=== PATIENT | female | born 1940 | race Caucasian/White ===

== ENCOUNTER 2017-04-19 08:36 | Emergency (ER) | payer MEDICARE, BC ==
[2017-04-19 08:52] VITALS: BP 158/64
--- NOTE | 2017-04-19 08:57 | EDM.PDOC ---
ED HPI GENERAL MEDICAL PROBLEM - General Chief Complaint: ENT Problem Stated Complaint: IN BY AMBULANCE Time Seen by Provider: 04/19/17 08:54 Source of Information: Reports: Patient History Limitations: Reports: No Limitations - History of Present Illness INITIAL COMMENTS - FREE TEXT/NARRATIVE: Pt states that she blew her nose this am and it started bleeding and she was unable to control it. Denies n/v or dizziness currently. 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: Dressing(s) (Nasal tampon placed by EMS) - Related Data Allergies Allergy/AdvReac Type Severity Reaction Status Date / Time cefdinir [From Omnicef] Allergy Cannot Verified 04/19/17 08:42 Remember escitalopram oxalate Allergy Cannot Verified 04/19/17 08:42 [From Lexapro] Remember hydrochlorothiazide Allergy Cannot Verified 04/19/17 08:42 Remember lisinopril Allergy Cannot Verified 04/19/17 08:42 Remember oxymetazoline HCl Allergy Cannot Verified 04/19/17 08:42 [From Afrin (oxymetazoline)] Remember paroxetine Allergy Cannot Verified 04/19/17 08:42 Remember sertraline Allergy Cannot Verified 04/19/17 08:42 Remember venlafaxine Allergy Cannot Verified 04/19/17 08:42 Remember Home Meds: Home Meds Acetaminophen [Tylenol Extra Strength] 2 tab PO Q6H PRN 10/22/14 [History] Albuterol [Proair HFA] 2 puff INH DAILY PRN 10/22/14 [History] Budesonide [Pulmicort] 2 ml INH BID PRN 10/22/14 [History] Fluticasone Propionate [Flonase] 1 spray NASBOTH DAILY 10/22/14 [History] Furosemide [Lasix] 1 tab PO DAILY 10/22/14 [History] Ipratropium/Albuterol Sulfate [Iprat-Albut 0.5-3(2.5) MG/3 ML] 1 ampule INH Q8HR PRN 10/22/14 [History] Loratadine 1 tab PO DAILY 10/22/14 [History] Losartan [Cozaar] 1 tab PO DAILY 10/22/14 [History] Metoprolol Succinate [Toprol Xl] 1 tab PO DAILY 10/22/14 [History] Multivitamin [Multi-Vitamin Daily] 1 tab PO DAILY 10/22/14 [History] Omeprazole [Prilosec] 1 tab PO DAILY 10/22/14 [History] Salmeterol Xinafoate [Serevent Diskus] 1 disk INH DAILY PRN 10/22/14 [History] Tylenol Pm 1 tab PO BEDTIME PRN 10/22/14 [History] amLODIPine Besylate [Amlodipine Besylate] 10 tab PO DAILY 10/22/14 [History] traZODone 1 tab PO BEDTIME 10/22/14 [History] atorvaSTATin [Lipitor] 10 mg PO DAILY 12/08/15 [History] metFORMIN [Glucophage XR] 500 mg PO ACBREAKFAST 12/08/15 [History] Calcium Carbonate/Vitamin D3 [Calcium 600 + Vit D Tablet] 1 mg PO DAILY [History] LORazepam 1 mg PO BEDTIME PRN 12/09/15 [History] Levothyroxine [Synthroid] 50 mcg PO DAILY 12/09/15 [History] traMADol [Ultram] 50 mg PO Q8HR PRN 12/09/15 [History] Prednisone [IJD: predniSONE] 40 mg PO WITHBREAKFAST #3 tablet 07/15/16 [Rx] Prednisone [IMW: predniSONE] 20 mg PO WITHBREAKFAST #3 tab 07/15/16 [Rx] predniSONE [Prednisone] 10 mg PO WITHBREAKFAST #3 tab.ds.pk 07/15/16 [Rx] Past Medical History HEENT History: Reports: Allergic Rhinitis, Impaired Vision, Other (See Below) Other HEENT History: GLasses Cardiovascular History: Reports: High Cholesterol, Hypertension Respiratory History: Reports: Asthma, COPD Gastrointestinal History: Reports: GERD Genitourinary History: Reports: Other (See Below) Other Genitourinary History: Stress incontinence 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 Musculoskeletal History: Reports: Osteoarthritis Neurological History: Reports: None Psychiatric History: Reports: Anxiety Endocrine/Metabolic History: Reports: Diabetes, Type II, Hypothyroidism Hematologic History: Reports: None Immunologic History: Reports: None Oncologic (Cancer) History: Reports: None Dermatologic History: Reports: None - Infectious Disease History Infectious Disease History: Reports: None - Past Surgical History Head Surgeries/Procedures: Reports: None Female Surgical History: Reports: Hysterectomy Social & Family History - Family History Family Medical History: Noncontributory - Tobacco Use Smoking Status *Q: Former Smoker Years of Tobacco use: 20 Used Tobacco, but Quit: Yes Month Tobacco Last Used: unknown Second Hand Smoke Exposure: No - Caffeine Use Caffeine Use: Reports: Coffee - Alcohol Use Days Per Week of Alcohol Use: 0 - Recreational Drug Use Recreational Drug Use: No - Living Situation & Occupation Living situation: Reports: , with Family Occupation: Retired ED ROS ENT - Review of Systems Review Of Systems: ROS reveals no pertinent complaints other than HPI. ED EXAM, ENT - Physical Exam Exam: See Below Exam Limited By: No Limitations General Appearance: Alert, WD/WN, No Apparent Distress Nose: Nasal Swelling, Injected Turbinates, Other (nasal tampon in right nare, no bleeding noted in left nare currently) Respiratory/Chest: No Respiratory Distress, Lungs Clear, No Accessory Muscle Use , Chest Non-Tender, Rales (mild KHADRA) Cardiovascular: Normal Peripheral Pulses, Regular Rate, Rhythm, No Edema, No Gallop, No JVD, No Murmur, No Rub Course - Vital Signs Last Recorded V/S: Last Vital Signs Temp 97.2 F 04/19/17 08:47 Pulse 87 04/19/17 08:47 Resp 18 04/19/17 08:47 BP 158/64 H 04/19/17 08:47 Pulse Ox 94 L 04/19/17 08:47 - Orders/Labs/Meds Labs: Laboratory Tests 04/19/17 04/19/17 Range/Units 09:02 09:02 WBC 12.8 H (5.0-10.0) 10^3/uL RBC 4.21 (4.2-5.4) 10^6/uL Hgb 12.7 (12.0-16.0) g/dL Hct 39.8 (37.0-47.0) % MCV 94.5 (80-100) fL MCH 30.2 (27.0-34.0) pg MCHC 31.9 L (33.0-35.0) g/dL Plt Count 303 (150-450) 10^3/uL Neut % (Auto) 72.5 (42.2-75.2) % Lymph % (Auto) 10.1 L (20.5-50.1) % [place] % (Auto) 8.0 (2-8) % Eos % (Auto) 8.9 H (1.0-3.0) % Baso % (Auto) 0.5 (0.0-1.0) % Sodium 141 (135-145) mmol/L Potassium 3.8 (3.6-5.0) mmol/L Chloride 100 L (101-111) mmol/L Carbon Dioxide 28.0 (21.0-31.0) mmol/L Anion Gap 16.8 BUN 13 (7-18) mg/dL Creatinine 0.8 (0.6-1.3) mg/dL Est Cr Clr Drug Dosing 41.63 mL/min Estimated GFR (MDRD) > 60 Glucose 135 H (74-105) mg/dL Calcium 9.4 (8.4-10.2) mg/dl - Re-Assessments/Exams Free Text/Narrative Re-Assessment/Exam: 04/19/17 09:37 Bleeding controlled with nasal packing. Labs with no signs of anemia. Will dc home with instructions to return in 48 hours for packing removal. Departure - Departure Time of Disposition: 09:38 Disposition: Home, Self-Care 01 Condition: Good Clinical Impression: Epistaxis - Discharge Information Instructions: Nosebleed Forms: ED Department Discharge Additional Instructions: Keep the nasal packing in for the next two days and return either to ER or clinic for removal. Try not to blow your nose. You may use ointment or gels to moisturize the inside of your nose using a q-tip lightly. if you start to have bleeding again, pinch your nose for 10-15 mins. Humidifiers may help to decrease the dryness in the air that could potentially be causing the nose bleeds. Return for any worsening symptoms.
[2017-04-19 09:29] LABS: CHLORIDE,CL 100 mmol/L (101-111); SODIUM,NA 141 mmol/L (135-145)
== END 2017-04-19 09:56 | disposition home or self-care (01) ==
LOC: DL.ED 08:36
DX: R04.0 Epistaxis (principal); H54.7 Unspecified visual loss; E78.00 Pure hypercholesterolemia, unspecified; I10 Essential (primary) hypertension; J44.9 Chronic obstructive pulmonary disease, unspecified; J45.909 Unspecified asthma, uncomplicated; K21.9 Gastro-esophageal reflux disease without esophagitis; M19.90 Unspecified osteoarthritis, unspecified site; Z90.710 Acquired absence of both cervix and uterus; E11.9 Type 2 diabetes mellitus without complications; E03.9 Hypothyroidism, unspecified; Z87.891 Personal history of nicotine dependence; Z88.8 Allergy status to other drugs, medicaments and biological substances; Z79.899 Other long term (current) drug therapy
CPT/HCPCS: 36415; 80048; 85025; 99282; 99284

== ENCOUNTER 2018-03-07 11:05 | Emergency (ER) | payer MEDICARE, BC ==
--- NOTE | 2018-03-07 11:41 | EDM.PDOC ---
ED HPI GENERAL MEDICAL PROBLEM - General Stated Complaint: AMBULANCE / NOSE BLEED Time Seen by Provider: 03/07/18 11:25 Source of Information: Reports: Patient, EMS, EMS Notes Reviewed, RN, RN Notes Reviewed History Limitations: Reports: No Limitations - History of Present Illness INITIAL COMMENTS - FREE TEXT/NARRATIVE: Pt presents to the ER per [facility] with c/o nosebleed. Patient states the nosebleed began about 0900. She states it slowed down and then she tried to eat something. It was at that time that it began to bleed more. EMS placed a nasal tampon en route. The bleeding seems to have been controlled with the nasal tampon. Patient denies taking anticoagulants, or any trauma. Patient denies chest pains, fever, N/V/D. She states she does have COPD and admits to SOB at times, and states she has recently had chills at times. She states she has had trouble beginning to void, and some frequency, urgency. Denies burning with urination. Onset: Today, Sudden - Related Data Allergies Allergy/AdvReac Type Severity Reaction Status Date / Time cefdinir [From Omnicef] Allergy Cannot Verified 04/19/17 08:42 Remember escitalopram oxalate Allergy Cannot Verified 04/19/17 08:42 [From Lexapro] Remember hydrochlorothiazide Allergy Cannot Verified 04/19/17 08:42 Remember lisinopril Allergy Cannot Verified 04/19/17 08:42 Remember oxymetazoline HCl Allergy Cannot Verified 04/19/17 08:42 [From Afrin (oxymetazoline)] Remember paroxetine Allergy Cannot Verified 04/19/17 08:42 Remember sertraline Allergy Cannot Verified 04/19/17 08:42 Remember venlafaxine Allergy Cannot Verified 04/19/17 08:42 Remember Home Meds: Home Meds Acetaminophen [Tylenol Extra Strength] 2 tab PO Q6H PRN 10/22/14 [History] Albuterol [Proair HFA] 2 puff INH DAILY PRN 10/22/14 [History] Budesonide [Pulmicort] 2 ml INH BID PRN 10/22/14 [History] Fluticasone Propionate [Flonase] 1 spray NASBOTH DAILY 10/22/14 [History] Furosemide [Lasix] 1 tab PO DAILY 10/22/14 [History] Ipratropium/Albuterol Sulfate [Iprat-Albut 0.5-3(2.5) MG/3 ML] 1 ampule INH Q8HR PRN 10/22/14 [History] Loratadine 1 tab PO DAILY 10/22/14 [History] Losartan [Cozaar] 1 tab PO DAILY 10/22/14 [History] Metoprolol Succinate [Toprol Xl] 1 tab PO DAILY 10/22/14 [History] Multivitamin [Multi-Vitamin Daily] 1 tab PO DAILY 10/22/14 [History] Omeprazole [Prilosec] 1 tab PO DAILY 10/22/14 [History] Salmeterol Xinafoate [Serevent Diskus] 1 disk INH DAILY PRN 10/22/14 [History] amLODIPine Besylate [Amlodipine Besylate] 10 tab PO DAILY 10/22/14 [History] traZODone 1 tab PO BEDTIME 10/22/14 [History] atorvaSTATin [Lipitor] 10 mg PO DAILY 12/08/15 [History] metFORMIN [Glucophage XR] 500 mg PO ACBREAKFAST 12/08/15 [History] Calcium Carbonate/Vitamin D3 [Calcium 600 + Vit D Tablet] 1 mg PO DAILY [History] LORazepam 1 mg PO BEDTIME PRN 12/09/15 [History] Levothyroxine [Synthroid] 50 mcg PO DAILY 12/09/15 [History] traMADol [Ultram] 50 mg PO Q8HR PRN 12/09/15 [History] predniSONE [Prednisone] 10 mg PO WITHBREAKFAST #3 tab.ds.pk 07/15/16 [Rx] Past Medical History HEENT History: Reports: Allergic Rhinitis, Impaired Vision, Other (See Below) Other HEENT History: GLasses Cardiovascular History: Reports: High Cholesterol, Hypertension Respiratory History: Reports: Asthma, COPD Gastrointestinal History: Reports: GERD Genitourinary History: Reports: Other (See Below) Other Genitourinary History: Stress incontinence 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 Musculoskeletal History: Reports: Osteoarthritis Neurological History: Reports: None Psychiatric History: Reports: Anxiety Endocrine/Metabolic History: Reports: Diabetes, Type II, Hypothyroidism Hematologic History: Reports: None Immunologic History: Reports: None Oncologic (Cancer) History: Reports: None Dermatologic History: Reports: None - Infectious Disease History Infectious Disease History: Reports: None - Past Surgical History Head Surgeries/Procedures: Reports: None Female Surgical History: Reports: Hysterectomy Social & Family History - Family History Family Medical History: Noncontributory - Caffeine Use Caffeine Use: Reports: Coffee - Living Situation & Occupation Living situation: Reports: , with Family Occupation: Retired ED ROS ENT - Review of Systems Review Of Systems: ROS reveals no pertinent complaints other than HPI. ED EXAM, ENT - Physical Exam Exam: See Below Exam Limited By: No Limitations General Appearance: Alert, WD/WN, No Apparent Distress Eye Exam: Bilateral Eye: EOMI, Normal Inspection Ears: Normal External Exam, Hearing Grossly Normal Nose: Dried Blood, Other (nasal tampon inserted to the right nare by EMS.) Mouth/Throat: Normal Inspection, Normal Lips, Normal Oropharynx Head: Atraumatic, Normocephalic Neck: Normal Inspection, Supple, Non-Tender, Full Range of Motion Respiratory/Chest: No Respiratory Distress, No Accessory Muscle Use, Chest Non- Tender, Decreased Breath Sounds Cardiovascular: Normal Peripheral Pulses, Regular Rate, Rhythm, No Edema, No Gallop, No JVD, No Murmur, No Rub GI/Abdominal: Normal Bowel Sounds, Soft, Non-Tender (Female) Exam: Deferred Rectal (Female) Exam: Deferred Back: Normal Inspection, Full Range of Motion Extremities: Normal Inspection, Normal Range of Motion, Non-Tender, No Pedal Edema, Normal Capillary Refill Neurological: Alert, Oriented, CN II-XII Intact, Normal Cognition, Normal Gait, Normal Reflexes, No Motor/Sensory Deficits Psychiatric: Normal Affect, Normal Mood Skin: Warm, Dry, Intact, Normal Color, No Rash Lymphatic: No Adenopathy Course - Vital Signs Last Recorded V/S: Last Vital Signs Temp 98.9 F 03/07/18 11:40 Pulse 84 03/07/18 11:40 Resp 20 03/07/18 11:40 BP 136/80 03/07/18 11:40 Pulse Ox 95 03/07/18 11:40 - Orders/Labs/Meds Orders: Active Orders 24 hr Category Date Time Status UA W/MICROSCOPIC [URIN] Stat Lab 03/07/18 12:26 Ordered Labs: Laboratory Tests 03/07/18 03/07/18 03/07/18 Range/Units 11:37 11:37 11:37 WBC 17.3 H (5.0-10.0) 10^3/uL RBC 4.32 (4.2-5.4) 10^6/uL Hgb 13.0 (12.0-16.0) g/dL Hct 40.6 (37.0-47.0) % MCV 94.0 (80-100) fL MCH 30.1 (27.0-34.0) pg MCHC 32.0 L (33.0-35.0) g/dL Plt Count 301 (150-450) 10^3/uL Neut % (Auto) 81.9 H (42.2-75.2) % Lymph % (Auto) 7.0 L (20.5-50.1) % [place] % (Auto) 6.5 (2-8) % Eos % (Auto) 4.2 H (1.0-3.0) % Baso % (Auto) 0.4 (0.0-1.0) % PT 9.8 (9.0-12.0) SEC INR 1.0 (0.9-1.2) Sodium 139 (135-145) mmol/L Potassium 3.5 L (3.6-5.0) mmol/L Chloride 101 (101-111) mmol/L Carbon Dioxide 29.0 (21.0-31.0) mmol/L Anion Gap 12.5 BUN 13 (7-18) mg/dL Creatinine 0.8 (0.6-1.3) mg/dL Est Cr Clr Drug Dosing 40.96 mL/min Estimated GFR (MDRD) > 60 BUN/Creatinine Ratio 16.25 Glucose 103 (74-105) mg/dL Calcium 9.2 (8.4-10.2) mg/dl Total Bilirubin 0.3 (0.2-1.0) mg/dL AST 26 (10-42) IU/L ALT 15 (10-60) IU/L Alkaline Phosphatase 49 (42-121) IU/L Total Protein 7.7 (6.7-8.2) g/dl Albumin 4.2 (3.2-5.5) g/dl Globulin 3.5 Albumin/Globulin Ratio 1.20 Urine Color (YELLOW) Urine Appearance (CLEAR) Urine pH (5.0-9.0) Ur Specific [place] (1.005-1.030) Urine Protein (NEGATIVE) Urine Glucose (UA) (NEGATIVE) Urine Ketones (NEGATIVE) Urine Occult Blood (NEGATIVE) Urine Nitrite (NEGATIVE) Urine Bilirubin (NEGATIVE) Urine Urobilinogen (0.2-1.0) mg/dL Ur Leukocyte Esterase (NEGATIVE) Urine RBC /HPF Urine WBC (0-5/HPF) /HPF Ur Epithelial Cells /HPF Urine Bacteria (0-FEW/HPF) /HPF Urine Mucus /LPF 03/07/18 Range/Units 12:26 WBC (5.0-10.0) 10^3/uL RBC (4.2-5.4) 10^6/uL Hgb (12.0-16.0) g/dL Hct (37.0-47.0) % MCV (80-100) fL MCH (27.0-34.0) pg MCHC (33.0-35.0) g/dL Plt Count (150-450) 10^3/uL Neut % (Auto) (42.2-75.2) % Lymph % (Auto) (20.5-50.1) % [place] % (Auto) (2-8) % Eos % (Auto) (1.0-3.0) % Baso % (Auto) (0.0-1.0) % PT (9.0-12.0) SEC INR (0.9-1.2) Sodium (135-145) mmol/L Potassium (3.6-5.0) mmol/L Chloride (101-111) mmol/L Carbon Dioxide (21.0-31.0) mmol/L Anion Gap BUN (7-18) mg/dL Creatinine (0.6-1.3) mg/dL Est Cr Clr Drug Dosing mL/min Estimated GFR (MDRD) BUN/Creatinine Ratio Glucose (74-105) mg/dL Calcium (8.4-10.2) mg/dl Total Bilirubin (0.2-1.0) mg/dL AST (10-42) IU/L ALT (10-60) IU/L Alkaline Phosphatase (42-121) IU/L Total Protein (6.7-8.2) g/dl Albumin (3.2-5.5) g/dl Globulin Albumin/Globulin Ratio Urine Color Yellow (YELLOW) Urine Appearance Clear (CLEAR) Urine pH 7.0 (5.0-9.0) Ur Specific [place] 1.015 (1.005-1.030) Urine Protein Negative (NEGATIVE) Urine Glucose (UA) Negative (NEGATIVE) Urine Ketones Negative (NEGATIVE) Urine Occult Blood Negative (NEGATIVE) Urine Nitrite Negative (NEGATIVE) Urine Bilirubin Negative (NEGATIVE) Urine Urobilinogen 0.2 (0.2-1.0) mg/dL Ur Leukocyte Esterase Negative (NEGATIVE) Urine RBC Not seen /HPF Urine WBC 0-5 (0-5/HPF) /HPF Ur Epithelial Cells Rare /HPF Urine Bacteria Not seen (0-FEW/HPF) /HPF Urine Mucus Not seen /LPF - Radiology Interpretation Free Text/Narrative:: Chest xray: No acute findings See rad report Departure - Departure Time of Disposition: 14:01 Disposition: Home, Self-Care 01 Condition: Fair Clinical Impression: Epistaxis not due to trauma Elevated WBC count Qualifiers: Leukocytosis type: unspecified Qualified Code(s): D72.829 - Elevated white blood cell count, unspecified - Discharge Information Instructions: Nosebleed, Adult, [id number] Forms: ED Department Discharge Additional Instructions: RX: Augmentin Follow up with your primary care facility tomorrow or [facility] to have nasal tampon removed Follow up with your primary care facility to have White Blood Count rechecked Return to the ER with any further problems. - My Orders Last 24 Hours: My Active Orders 03/07/18 12:26 UA W/MICROSCOPIC [URIN] Stat - Assessment/Plan Last 24 Hours: My Active Orders 03/07/18 12:26 UA W/MICROSCOPIC [URIN] Stat
[2018-03-07 11:49] VITALS: BP 136/80
[2018-03-07 12:04] LABS: CHLORIDE,CL 101 mmol/L (101-111); SODIUM,NA 139 mmol/L (135-145)
--- NOTE | 2018-03-07 13:32 | CR ---
Clinical history: 77-year-old female with clinical COPD and abnormally elevated white blood cell coun t. Interpretation: No acute new cardiopulmonary abnormality identified in the interval since 2015 exam. Chronic bronchitic pattern and old right middle lobe/lingular scarring. Normal cardiac silhouette without cephalization of flow, signs of alveolar edema or dependent pleural fluid accumulation. No new lung mass, hilar lymphadenopathy or focal lobar pneumonia. CONCLUSION: No lobar pneumonia.
== END 2018-03-07 14:20 | disposition home or self-care (01) ==
LOC: DL.ED 11:05
DX: R04.0 Epistaxis (principal); D72.829 Elevated white blood cell count, unspecified; E78.00 Pure hypercholesterolemia, unspecified; I10 Essential (primary) hypertension; J44.9 Chronic obstructive pulmonary disease, unspecified; K21.9 Gastro-esophageal reflux disease without esophagitis; E11.9 Type 2 diabetes mellitus without complications; E03.9 Hypothyroidism, unspecified; Z90.710 Acquired absence of both cervix and uterus; Z88.8 Allergy status to other drugs, medicaments and biological substances; Z79.899 Other long term (current) drug therapy
CPT/HCPCS: 36415; 71046; 80053; 81001; 85025; 85610; 99284

== ENCOUNTER 2018-03-16 18:22 | Emergency (ER) | payer MEDICARE, BC ==
[2018-03-16] MEDS ORDERED: Silver Nitrate Applicator Each TOP ONE (18:36)
--- NOTE | 2018-03-16 19:10 | EDM.PDOC ---
<Jennifer Arevalo - Last Filed: 03/16/18 21:44> ED HPI GENERAL MEDICAL PROBLEM - General Chief Complaint: ENT Problem Stated Complaint: EPISTAXIS. IN BY AMB Time Seen by Provider: 03/16/18 18:35 - Related Data Allergies Allergy/AdvReac Type Severity Reaction Status Date / Time cefdinir [From Omnicef] Allergy Cannot Verified 03/16/18 18:31 Remember escitalopram oxalate Allergy Cannot Verified 03/16/18 18:31 [From Lexapro] Remember hydrochlorothiazide Allergy Cannot Verified 03/16/18 18:31 Remember lisinopril Allergy Cannot Verified 03/16/18 18:31 Remember oxymetazoline HCl Allergy Cannot Verified 03/16/18 18:31 [From Afrin (oxymetazoline)] Remember paroxetine Allergy Cannot Verified 03/16/18 18:31 Remember sertraline Allergy Cannot Verified 03/16/18 18:31 Remember venlafaxine Allergy Cannot Verified 03/16/18 18:31 Remember Home Meds: Home Meds Acetaminophen [Tylenol Extra Strength] 2 tab PO Q6H PRN 10/22/14 [History] Albuterol [Proair HFA] 2 puff INH DAILY PRN 10/22/14 [History] Budesonide [Pulmicort] 2 ml INH BID PRN 10/22/14 [History] Fluticasone Propionate [Flonase] 1 spray NASBOTH DAILY 10/22/14 [History] Furosemide [Lasix] 20 mg PO DAILY 10/22/14 [History] Ipratropium/Albuterol Sulfate [Iprat-Albut 0.5-3(2.5) MG/3 ML] 3 ml INH Q8HR PRN 10/22/14 [History] Loratadine 10 mg PO DAILY 10/22/14 [History] Losartan [Cozaar] 100 mg PO DAILY 10/22/14 [History] Metoprolol Succinate [Toprol Xl] 100 mg PO DAILY 10/22/14 [History] Multivitamin [Multi-Vitamin Daily] 1 tab PO DAILY 10/22/14 [History] Omeprazole [Prilosec] 20 mg PO DAILY 10/22/14 [History] Salmeterol Xinafoate [Serevent Diskus] 1 disk INH DAILY PRN 12/31/14 [History] amLODIPine Besylate [Amlodipine Besylate] 10 tab PO DAILY 10/22/14 [History] traZODone 50 mg PO BEDTIME 10/22/14 [History] atorvaSTATin [Lipitor] 10 mg PO DAILY 12/08/15 [History] metFORMIN [Glucophage XR] 500 mg PO ACBREAKFAST 12/08/15 [History] Calcium Carbonate/Vitamin D3 [Calcium 600 + Vit D Tablet] 1 mg PO DAILY [History] LORazepam 1 mg PO BEDTIME PRN 12/09/15 [History] Levothyroxine [Synthroid] 50 mcg PO DAILY 12/09/15 [History] traMADol [Ultram] 50 mg PO Q8HR PRN 12/09/15 [History] Fish Oil/[place]-3 Fatty Acids [Fish Oil 1,000 MG] 2 gm PO DAILY 03/16/18 [History ] Formoterol Fumarate [Perforomist] 2 ml INH BID 03/16/18 [History] Potassium 99 mg PO DAILY 03/16/18 [History] predniSONE [Prednisone] 5 mg PO WITHBREAKFAST 03/16/18 [History] Course - Vital Signs Last Recorded V/S: Last Vital Signs Temp 98.4 F 03/16/18 22:15 Pulse 92 03/16/18 22:15 Resp 18 03/16/18 22:15 BP 155/67 H 03/16/18 22:15 Pulse Ox 96 03/16/18 22:15 - Orders/Labs/Meds Labs: Laboratory Tests 03/16/18 03/16/18 03/16/18 Range/Units 19:08 19:08 19:08 WBC 14.0 H (5.0-10.0) 10^3/uL RBC 3.94 L (4.2-5.4) 10^6/uL Hgb 11.8 L (12.0-16.0) g/dL Hct 36.9 L (37.0-47.0) % MCV 93.7 (80-100) fL MCH 29.9 (27.0-34.0) pg MCHC 32.0 L (33.0-35.0) g/dL Plt Count 315 (150-450) 10^3/uL Neut % (Auto) 71.9 (42.2-75.2) % Lymph % (Auto) 12.8 L (20.5-50.1) % [place] % (Auto) 9.7 H (2-8) % Eos % (Auto) 5.2 H (1.0-3.0) % Baso % (Auto) 0.4 (0.0-1.0) % PT 9.7 (9.0-12.0) SEC INR 1.0 (0.9-1.2) Sodium 133 L (135-145) mmol/L Potassium 3.9 (3.6-5.0) mmol/L Chloride 99 L (101-111) mmol/L Carbon Dioxide 24.0 (21.0-31.0) mmol/L Anion Gap 13.9 BUN 18 (7-18) mg/dL Creatinine 1.0 (0.6-1.3) mg/dL Est Cr Clr Drug Dosing 32.77 mL/min Estimated GFR (MDRD) 53 BUN/Creatinine Ratio 18.00 Glucose 135 H (74-105) mg/dL Calcium 9.5 (8.4-10.2) mg/dl Total Bilirubin < 0.1 L (0.2-1.0) mg/dL AST 22 (10-42) IU/L ALT 14 (10-60) IU/L Alkaline Phosphatase 48 (42-121) IU/L Total Protein 7.3 (6.7-8.2) g/dl Albumin 4.1 (3.2-5.5) g/dl Globulin 3.2 Albumin/Globulin Ratio 1.28 Meds: Medications Discontinued Medications Generic Name Dose Route Start Last Admin Trade Name Freq PRN Reason Stop Dose Admin Acetaminophen 650 mg 03/16/18 21:36 03/16/18 21:40 Tylenol PO 03/16/18 21:37 650 mg NOW ONE Administration Phenylephrine HCl 2 ml 03/16/18 20:23 03/16/18 20:42 Guido-Synephrine 0.25% Mild Nasal [place] NASBOTH 03/16/18 20:24 2 ml ONETIME ONE Administration Silver Nitrate 2 each 03/16/18 18:36 03/16/18 18:56 Silver Nitrate TOP 03/16/18 18:37 2 each ONETIME ONE Administration - Re-Assessments/Exams Free Text/Narrative Re-Assessment/Exam: 03/16/18 21:44 brief initial response to neosynephrine with cessation of active bleeding approximately 10 minutes then resumed small posterior bleeding left and small trickle around packing on right Departure - Departure Disposition: DC/Tfer to Acute Hospital 02 Condition: Good Clinical Impression: Epistaxis not due to trauma - Discharge Information Instructions: Nosebleed, Adult, [id number] Referrals: Craig Espinal MD [Primary Care Provider] - Forms: ED Department Discharge Additional Instructions: humidified oxygen remove nasal packing monday urgent follow up if bleeding resumes, <Sandra Russo - Last Filed: 03/17/18 07:24> ED HPI GENERAL MEDICAL PROBLEM - General Source of Information: Reports: Patient, EMS, EMS Notes Reviewed, RN, RN Notes Reviewed History Limitations: Reports: No Limitations - History of Present Illness INITIAL COMMENTS - FREE TEXT/NARRATIVE: Pt presents to the ER per [facility] with c/o nosebleed which started 25 minutes prior to arrival. She states she was seen in the ER about 1 week ago with a bloody nose and a nasal tampon was placed. She was placed on antibiotics. She states she was seen in the clinic by Dr. Espinal and the nasal tampon was removed. She states many years ago she was told that she had nasal polyps. Patient denies any trauma or loss of consciousness. 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 Musculoskeletal History: Reports: Osteoarthritis Neurological History: Reports: None Psychiatric History: Reports: Anxiety Endocrine/Metabolic History: Reports: Diabetes, Type II, Hypothyroidism Hematologic History: Reports: None Immunologic History: Reports: None Oncologic (Cancer) History: Reports: None Dermatologic History: Reports: None - Infectious Disease History Infectious Disease History: Reports: None - Past Surgical History Head Surgeries/Procedures: Reports: None Female Surgical History: Reports: Hysterectomy Social & Family History - Family History Family Medical History: Noncontributory - Tobacco Use Smoking Status *Q: Never Smoker Second Hand Smoke Exposure: No - Caffeine Use Caffeine Use: Reports: None - Recreational Drug Use Recreational Drug Use: No - Living Situation & Occupation Living situation: Reports: , with Family Occupation: Retired ED ROS ENT - Review of Systems Review Of Systems: ROS reveals no pertinent complaints other than HPI. ED EXAM, ENT - Physical Exam Exam: See Below Exam Limited By: No Limitations General Appearance: Alert, WD/WN, Mild Distress Eye Exam: Bilateral Eye: EOMI, Normal Inspection Ears: Normal External Exam, Hearing Grossly Normal Nose: Active Bleeding Mouth/Throat: Other (dried blood from epistaxis) Head: Atraumatic, Normocephalic Neck: Normal Inspection, Supple, Non-Tender, Full Range of Motion Respiratory/Chest: No Respiratory Distress, Decreased Breath Sounds Cardiovascular: Normal Peripheral Pulses, Regular Rate, Rhythm, No Edema, No Gallop, No JVD, No Murmur, No Rub GI/Abdominal: Normal Bowel Sounds, Soft, Non-Tender (Female) Exam: Deferred Rectal (Female) Exam: Deferred Back: Normal Inspection, Full Range of Motion Extremities: Normal Inspection, Normal Range of Motion, Non-Tender, No Pedal Edema, Normal Capillary Refill Neurological: Alert, Oriented, CN II-XII Intact, Normal Cognition, Normal Gait, Normal Reflexes, No Motor/Sensory Deficits Psychiatric: Normal Affect, Normal Mood Skin: Warm, Dry, Intact, Normal Color, No Rash Lymphatic: No Adenopathy ED ENT PROCEDURES - Epistaxis Procedure Indication: Epistaxis Recent anticoagulants/antiplatlets: No Uncontrolled HTN: No Recent septal/nasal surgery: No Site of bleeding: Right Nare Clearing of clots: Other Topical Meds: Other (silver nitrate) Ice pack to area: No Chemical cautery: Silver Nitrate Topical Anterior Packing: Inflatable Nasal Tampon Posterior packing: Long Inflatable Nasal Tampon Complications: No Course - Orders/Labs/Meds Labs: Laboratory Tests 03/16/18 03/16/18 03/16/18 Range/Units 19:08 19:08 19:08 WBC 14.0 H (5.0-10.0) 10^3/uL RBC 3.94 L (4.2-5.4) 10^6/uL Hgb 11.8 L (12.0-16.0) g/dL Hct 36.9 L (37.0-47.0) % MCV 93.7 (80-100) fL MCH 29.9 (27.0-34.0) pg MCHC 32.0 L (33.0-35.0) g/dL Plt Count 315 (150-450) 10^3/uL Neut % (Auto) 71.9 (42.2-75.2) % Lymph % (Auto) 12.8 L (20.5-50.1) % [place] % (Auto) 9.7 H (2-8) % Eos % (Auto) 5.2 H (1.0-3.0) % Baso % (Auto) 0.4 (0.0-1.0) % PT 9.7 (9.0-12.0) SEC INR 1.0 (0.9-1.2) Sodium 133 L (135-145) mmol/L Potassium 3.9 (3.6-5.0) mmol/L Chloride 99 L (101-111) mmol/L Carbon Dioxide 24.0 (21.0-31.0) mmol/L Anion Gap 13.9 BUN 18 (7-18) mg/dL Creatinine 1.0 (0.6-1.3) mg/dL Est Cr Clr Drug Dosing 32.77 mL/min Estimated GFR (MDRD) 53 BUN/Creatinine Ratio 18.00 Glucose 135 H (74-105) mg/dL Calcium 9.5 (8.4-10.2) mg/dl Total Bilirubin < 0.1 L (0.2-1.0) mg/dL AST 22 (10-42) IU/L ALT 14 (10-60) IU/L Alkaline Phosphatase 48 (42-121) IU/L Total Protein 7.3 (6.7-8.2) g/dl Albumin 4.1 (3.2-5.5) g/dl Globulin 3.2 Albumin/Globulin Ratio 1.28 Departure - Departure Time of Disposition: 23:04
[2018-03-16 19:38] LABS: CHLORIDE,CL 99 mmol/L (101-111); SODIUM,NA 133 mmol/L (135-145)
[2018-03-16] MEDS ORDERED: Acetaminophen 325 MG Tab PO ONE (21:36)
[2018-03-16 22:19] VITALS: BP 155/67
== END 2018-03-16 23:04 ==
LOC: DL.ED 18:22
DX: R04.0 Epistaxis (principal); I10 Essential (primary) hypertension; E78.00 Pure hypercholesterolemia, unspecified; J44.9 Chronic obstructive pulmonary disease, unspecified; K21.9 Gastro-esophageal reflux disease without esophagitis; M19.90 Unspecified osteoarthritis, unspecified site; E11.9 Type 2 diabetes mellitus without complications; E03.9 Hypothyroidism, unspecified; Z79.899 Other long term (current) drug therapy; Z79.84 Long term (current) use of oral hypoglycemic drugs; Z88.8 Allergy status to other drugs, medicaments and biological substances
CPT/HCPCS: 30901; 30905; 36415; 80053; 85025; 85610; 99283; 99284; A9270

== ENCOUNTER 2018-12-10 10:56 | Emergency (ER) | payer MEDICARE, BC, MEDICAID ==
--- NOTE | 2018-12-10 10:56 | EDM.PDOC ---
ED HPI GENERAL MEDICAL PROBLEM - General Chief Complaint: Respiratory Problem Stated Complaint: UNKNOWN Time Seen by Provider: 12/10/18 10:48 Source of Information: Reports: Patient History Limitations: Reports: No Limitations - History of Present Illness INITIAL COMMENTS - FREE TEXT/NARRATIVE: This 78 yo female patient was brought to the ED by [facility] due to increased shortness of breath. The patient reports she has a history of COPD and normally has some difficulties breathing. The patient reports she had some right sided chest pain this morning. The patient reports she took an antacid which made her chest pain go away. The patient reports her shortness of breath has gotten worse this morning. The patient reports she tried to use her nebulizer several times at home with no symptom relief. EMS attempted another nebulizer treatment with no change in the patients shortness of breath. EMS placed the patient on bipap. Upon arrival, the patient reports she is feeling better. The patient reports no current chest pain or other symptoms. The patient reports she was diagnosed with COPD in 2003. Onset: Today Duration: Constant Location: Reports: Chest Quality: Reports: Other Severity: Moderate Improves with: Reports: Other (treatments) Worsens with: Reports: None Context: Reports: Other Associated Symptoms: Reports: No Other Symptoms - Related Data Allergies Allergy/AdvReac Type Severity Reaction Status Date / Time cefdinir [From Omnicef] Allergy Cannot Verified 12/10/18 11:09 Remember escitalopram oxalate Allergy Cannot Verified 12/10/18 11:09 [From Lexapro] Remember hydrochlorothiazide Allergy Cannot Verified 12/10/18 11:09 Remember lisinopril Allergy Cannot Verified 12/10/18 11:09 Remember oxymetazoline HCl Allergy Cannot Verified 12/10/18 11:09 [From Afrin (oxymetazoline)] Remember paroxetine Allergy Cannot Verified 12/10/18 11:09 Remember sertraline Allergy Cannot Verified 12/10/18 11:09 Remember venlafaxine Allergy Cannot Verified 12/10/18 11:09 Remember Home Meds: Home Meds Acetaminophen [Tylenol Extra Strength] 2 tab PO Q6H PRN 10/22/14 [History] Albuterol [Proair HFA] 2 puff INH DAILY PRN 10/22/14 [History] Budesonide [Pulmicort] 2 ml INH BID PRN 10/22/14 [History] Fluticasone Propionate [Flonase] 1 spray NASBOTH DAILY 10/22/14 [History] Furosemide [Lasix] 20 mg PO DAILY 10/22/14 [History] Ipratropium/Albuterol Sulfate [Iprat-Albut 0.5-3(2.5) MG/3 ML] 3 ml INH Q8HR PRN 10/22/14 [History] Loratadine 10 mg PO DAILY 10/22/14 [History] Losartan [Cozaar] 100 mg PO DAILY 10/22/14 [History] Metoprolol Succinate [Toprol Xl] 100 mg PO DAILY 10/22/14 [History] Multivitamin [Multi-Vitamin Daily] 1 tab PO DAILY 10/22/14 [History] Omeprazole [Prilosec] 20 mg PO DAILY 10/22/14 [History] Salmeterol Xinafoate [Serevent Diskus] 1 disk INH DAILY PRN 10/22/14 [History] amLODIPine Besylate [Amlodipine Besylate] 10 tab PO DAILY 10/22/14 [History] traZODone 50 mg PO BEDTIME 10/22/14 [History] atorvaSTATin [Lipitor] 10 mg PO DAILY 12/08/15 [History] metFORMIN [Glucophage XR] 500 mg PO ACBREAKFAST 12/08/15 [History] Calcium Carbonate/Vitamin D3 [Calcium 600 + Vit D Tablet] 1 mg PO DAILY [History] LORazepam 1 mg PO BEDTIME PRN 12/09/15 [History] Levothyroxine [Synthroid] 50 mcg PO DAILY 12/09/15 [History] traMADol [Ultram] 50 mg PO Q8HR PRN 12/09/15 [History] Fish Oil/[place]-3 Fatty Acids [Fish Oil 1,000 MG] 2 gm PO DAILY 03/16/18 [History ] Formoterol Fumarate [Perforomist] 2 ml INH BID 03/16/18 [History] Potassium 99 mg PO DAILY 03/16/18 [History] predniSONE [Prednisone] 5 mg PO WITHBREAKFAST 03/16/18 [History] Past Medical History HEENT History: Reports: Allergic Rhinitis, Impaired Vision, Other (See Below) Other HEENT History: GLasses Cardiovascular History: Reports: High Cholesterol, Hypertension Respiratory History: Reports: Asthma, COPD Gastrointestinal History: Reports: GERD Genitourinary History: Reports: Other (See Below) Other Genitourinary History: Stress incontinence 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 Musculoskeletal History: Reports: Osteoarthritis Neurological History: Reports: None Psychiatric History: Reports: Anxiety Endocrine/Metabolic History: Reports: Diabetes, Type II, Hypothyroidism Hematologic History: Reports: None Immunologic History: Reports: None Oncologic (Cancer) History: Reports: None Dermatologic History: Reports: None - Infectious Disease History Infectious Disease History: Reports: None - Past Surgical History Head Surgeries/Procedures: Reports: None Female Surgical History: Reports: Hysterectomy Social & Family History - Family History Family Medical History: Noncontributory - Caffeine Use Caffeine Use: Reports: None - Living Situation & Occupation Living situation: Reports: , with Family Occupation: Retired ED ROS GENERAL - Review of Systems Review Of Systems: ROS reveals no pertinent complaints other than HPI. ED EXAM, GENERAL - Physical Exam Exam: See Below Exam Limited By: No Limitations General Appearance: Alert, WD/WN, Moderate Distress Eye Exam: Bilateral Eye: EOMI, Normal Inspection, PERRL Ears: Normal External Exam, Normal Canal, Hearing Grossly Normal, Normal TMs Nose: Normal Inspection, Normal Mucosa, No Blood Throat/Mouth: Normal Inspection, Normal Lips, Normal Teeth, Normal Gums, Normal Oropharynx, Normal Voice, No Airway Compromise Head: Atraumatic, Normocephalic Neck: Normal Inspection, Supple, Non-Tender, Full Range of Motion Respiratory/Chest: Decreased Breath Sounds (bilateral lower lobes (right>left)) Cardiovascular: Normal Peripheral Pulses, No Gallop, No JVD, No Murmur, No Rub, Extra Beats GI/Abdominal: Normal Bowel Sounds, Soft, Non-Tender, No Organomegaly, No Distention, No Abnormal Bruit, No Mass (Female) Exam: Deferred Rectal (Female) Exam: Deferred Back Exam: Normal Inspection, Full Range of Motion, NT Extremities: Normal Range of Motion, Non-Tender, Normal Capillary Refill, Pedal Edema (2+) Neurological: Alert Psychiatric: Normal Affect, Normal Mood Skin Exam: Warm, Dry, Intact, Normal Color, No Rash Lymphatic: No Adenopathy Course - Vital Signs Last Recorded V/S: Last Vital Signs Temp 35.8 C 12/10/18 11:18 Pulse 122 H 12/10/18 11:18 Resp 24 H 12/10/18 11:18 BP 142/65 H 02/18/19 11:18 Pulse Ox 99 12/10/18 11:18 - Orders/Labs/Meds Orders: Active Orders 24 hr Category Date Time Status EKG Documentation Completion [RC] URGENT Care 12/10/18 10:45 Active CULTURE BLOOD [BC] Stat Lab 12/10/18 10:57 Received D-DIMER QUANTITATIVE [COAG] Stat Lab 12/10/18 11:37 Ordered INR,PT,PROTHROMBIN TIME [COAG] Stat Lab 12/10/18 11:37 Ordered UA RFX KAMI AND CULT IF INDIC [URIN] Urgent Lab 12/10/18 10:45 Ordered Heparin Sodium/0.45% NaCl [Heparin 25,000 Units in 1/2 Med 12/10/18 11:37 Ordered NS 500 ML] 25,000 units in 500 ml IV ONETIME Medication Orders Heparin Sodium/Sodium Chloride (Heparin 25,000 Units In 1/2 Ns 500 Ml) 25,000 units in 500 mls @ 17.064 mls/hr IV ONETIME ONE Stop: 12/11/18 16:55 Labs: Laboratory Tests 12/10/18 12/10/18 12/10/18 Range/Units 10:57 10:57 10:57 WBC 8.2 (5.0-10.0) 10^3/uL RBC 4.42 (4.2-5.4) 10^6/uL Hgb 12.9 (12.0-16.0) g/dL Hct 40.5 (37.0-47.0) % MCV 91.6 (80-100) fL MCH 29.2 (27.0-34.0) pg MCHC 31.9 L (33.0-35.0) g/dL Plt Count 229 D (150-450) 10^3/uL Neut % (Auto) 66.4 (42.2-75.2) % Lymph % (Auto) 11.5 L (20.5-50.1) % [place] % (Auto) 19.6 H (2-8) % Eos % (Auto) 2.3 (1.0-3.0) % Baso % (Auto) 0.2 (0.0-1.0) % Sodium 135 (135-145) mmol/L Potassium 3.0 L (3.6-5.0) mmol/L Chloride 94 L (101-111) mmol/L Carbon Dioxide 26.0 (21.0-31.0) mmol/L Anion Gap 18.0 BUN 10 (7-18) mg/dL Creatinine 0.8 (0.6-1.3) mg/dL Est Cr Clr Drug Dosing 40.29 mL/min Estimated GFR (MDRD) > 60 BUN/Creatinine Ratio 12.50 Glucose 175 H (74-105) mg/dL Lactic Acid 1.9 (0.5-2.2) mmol/L Calcium 8.7 (8.4-10.2) mg/dl Total Bilirubin 0.4 (0.2-1.0) mg/dL AST 36 (10-42) IU/L ALT 16 (10-60) IU/L Alkaline Phosphatase 50 (42-121) IU/L Troponin I 0.16 H* (0.00-0.02) ng/ml B-Natriuretic Peptide 28 (0-100) pg/ml Total Protein 7.2 (6.7-8.2) g/dl Albumin 3.7 (3.2-5.5) g/dl Globulin 3.5 Albumin/Globulin Ratio 1.06 Meds: Medications Generic Name Dose Route Start Last Admin Trade Name Freq PRN Reason Stop Dose Admin Heparin Sodium/Sodium Chloride 25,000 units in 500 mls @ 17.064 mls/hr 11:37 Heparin 25,000 Units In 1/2 Ns 500 Ml IV 12/11/18 16:55 ONETIME ONE 12 UNITS/KG/HR Discontinued Medications Generic Name Dose Route Start Last Admin Trade Name Freq PRN Reason Stop Dose Admin Aspirin 324 mg 12/10/18 11:27 Aspirin PO 12/10/18 11:28 ONETIME ONE Heparin Sodium (Porcine) 4,000 units 12/10/18 11:36 Heparin Sodium IVPUSH 12/10/18 11:37 .BOLUS ONE Departure - Departure Time of Disposition: 11:47 Disposition: DC/Tfer to Acute Hospital 02 Condition: Serious Clinical Impression: NSTEMI (non-ST elevated myocardial infarction), Elevated troponin, Difficulty breathing - Discharge Information *PRESCRIPTION DRUG MONITORING PROGRAM REVIEWED*: Not Applicable *COPY OF PRESCRIPTION DRUG MONITORING REPORT IN PATIENT ALLAN: Not Applicable Forms: Interfacility Transfer EMTALA Care Plan Goals: Discussed the patient's history, examination, lab, EKG and treatments with Dr. Forrester. Dr. Forrester accepted the patient for continued evaluation and further management as an inpatient at [facility] in [place]. The patient will be transported by [facility]. - My Orders Last 24 Hours: My Active Orders 12/10/18 10:45 EKG Documentation Completion [RC] URGENT UA RFX KAMI AND CULT IF INDIC [URIN] Urgent 12/10/18 10:57 CULTURE BLOOD [BC] Stat 12/10/18 11:37 D-DIMER QUANTITATIVE [COAG] Stat INR,PT,PROTHROMBIN TIME [COAG] Stat Heparin Sodium/0.45% NaCl [Heparin 25,000 Units in 1/2 NS 500 ML] 25,000 units in 500 ml IV ONETIME - Assessment/Plan Last 24 Hours: My Active Orders 12/10/18 10:45 EKG Documentation Completion [RC] URGENT UA RFX KAMI AND CULT IF INDIC [URIN] Urgent 12/10/18 10:57 CULTURE BLOOD [BC] Stat 12/10/18 11:37 D-DIMER QUANTITATIVE [COAG] Stat INR,PT,PROTHROMBIN TIME [COAG] Stat Heparin Sodium/0.45% NaCl [Heparin 25,000 Units in 1/2 NS 500 ML] 25,000 units in 500 ml IV ONETIME
[2018-12-10 11:19] VITALS: BP 142/65
--- NOTE | 2018-12-10 11:19 | CR ---
Clinical history: 78-year-old female complaining of shortness of breath. Interpretation: Old lingular scar. Normal cardiac silhouette without cephalization of vascular flow and new signs of alveolar edema or deep pleural fluid accumulation when compared to 07 Mar 2018 exam. No new lung mass, hilar lymphadenopathy or focal lobar pneumonia. No pneumothorax or free subdiaphragmatic air. CONCLUSION: No acute new cardiopulmonary abnormality.
[2018-12-10 11:23] LABS: CHLORIDE,CL 94 mmol/L (101-111); SODIUM,NA 135 mmol/L (135-145)
[2018-12-10] MEDS ORDERED: Aspirin 81 MG Tab.Chew PO ONE (11:27)
[2018-12-10] MEDS ORDERED: Heparin Sodium 5,000 Units/ML Vial IVPUSH ONE (11:36)
[2018-12-10] MEDS ORDERED: Heparin Sodium/0.45% NaCl 25,000 UNITS/500 ML BAG IV ONE (11:37)
== END 2018-12-10 12:34 ==
LOC: DL.ED 10:56
DX: I21.4 Non-ST elevation (NSTEMI) myocardial infarction (principal); R79.89 Other specified abnormal findings of blood chemistry; I10 Essential (primary) hypertension; E11.9 Type 2 diabetes mellitus without complications; E03.9 Hypothyroidism, unspecified; Z79.899 Other long term (current) drug therapy; Z90.710 Acquired absence of both cervix and uterus; Z79.84 Long term (current) use of oral hypoglycemic drugs; Z88.8 Allergy status to other drugs, medicaments and biological substances; Z88.1 Allergy status to other antibiotic agents
CPT/HCPCS: 36415; 71045; 80053; 81001; 83605; 83880; 84484; 85025; 85379; 85610; 87040; 93005; 96365; 96374; 99285; A9270; J1644; 99284

== ENCOUNTER 2020-02-13 16:20 | Emergency (ER) | payer MEDICARE, BC, MEDICAID, OTHER ==
[2020-02-13] MEDS ORDERED: Sodium Chloride 0.9% 10 ML Syringe FLUSH PRN (16:30)
[2020-02-13] MEDS ORDERED: Albuterol/Ipratropium 3.0-0.5 MG/3 ML Neb Soln NEB ONE (16:35)
[2020-02-13] MEDS ORDERED: Albuterol/Ipratropium 3.0-0.5 MG/3 ML Neb Soln ONE (16:35)
--- NOTE | 2020-02-13 16:40 | EDM.PDOC ---
ED HPI GENERAL MEDICAL PROBLEM - General Stated Complaint: L.R.A. Time Seen by Provider: 02/13/20 16:39 Source of Information: Reports: Patient, RN, RN Notes Reviewed History Limitations: Reports: Respiratory Distress - History of Present Illness INITIAL COMMENTS - FREE TEXT/NARRATIVE: Pt presents to ER with c/o SOB. Patient states she has been sick since Monday. States she was seen in the clinic on Monday and with a respiratory infection and placed on abx. Patient states she has been progressively getting worse over the week. Today states she was feeling very SOB. States she has not traveled, and has not been exposed to anyone knowingly having COVID-19. Admits to sore throat, cough, SOB (in acute distress), chills and possible fever at home. Admits to nausea without vomiting, denies diarrhea. States she has a curator that lives with her who works in a [employer]. History of COPD. Onset: Gradual - Related Data Allergies Allergy/AdvReac Type Severity Reaction Status Date / Time cefdinir [From Omnicef] Allergy Cannot Verified 02/13/20 17:05 Remember escitalopram oxalate Allergy Cannot Verified 02/13/20 17:05 [From Lexapro] Remember hydrochlorothiazide Allergy Cannot Verified 02/13/20 17:05 Remember lisinopril Allergy Cannot Verified 02/13/20 17:05 Remember oxymetazoline HCl Allergy Cannot Verified 02/13/20 17:05 [From Afrin (oxymetazoline)] Remember paroxetine Allergy Cannot Verified 02/13/20 17:05 Remember sertraline Allergy Cannot Verified 02/13/20 17:05 Remember venlafaxine Allergy Cannot Verified 02/13/20 17:05 Remember Home Meds: Home Meds Acetaminophen [Tylenol Extra Strength] 2 tab PO Q6H PRN 10/22/14 [History] Albuterol [Proair HFA] 2 puff INH DAILY PRN 10/22/14 [History] Budesonide [Pulmicort] 2 ml INH BID PRN 10/22/14 [History] Fluticasone Propionate [Flonase] 1 spray NASBOTH DAILY 10/22/14 [History] Furosemide [Lasix] 20 mg PO DAILY 10/22/14 [History] Ipratropium/Albuterol Sulfate [Iprat-Albut 0.5-3(2.5) MG/3 ML] 3 ml INH Q8HR PRN 10/22/14 [History] Losartan [Cozaar] 100 mg PO DAILY 10/22/14 [History] Metoprolol Succinate [Toprol Xl] 100 mg PO DAILY 10/22/14 [History] Multivitamin [Multi-Vitamin Daily] 1 tab PO DAILY 10/22/14 [History] Omeprazole [Prilosec] 20 mg PO DAILY 10/22/14 [History] amLODIPine Besylate [Amlodipine Besylate] 10 tab PO DAILY 10/22/14 [History] traZODone 50 mg PO BEDTIME 10/22/14 [History] atorvaSTATin [Lipitor] 10 mg PO DAILY 12/08/15 [History] metFORMIN [Glucophage XR] 500 mg PO ACBREAKFAST 12/08/15 [History] Calcium Carbonate/Vitamin D3 [Calcium 600 + Vit D Tablet] 1 mg PO DAILY [History] LORazepam 1 mg PO BEDTIME PRN 12/09/15 [History] Levothyroxine [Synthroid] 50 mcg PO DAILY 12/09/15 [History] traMADol [Ultram] 50 mg PO Q8HR PRN 12/09/15 [History] Fish Oil/[place]-3 Fatty Acids [Fish Oil 1,000 MG] 2 gm PO DAILY 03/16/18 [History ] Formoterol Fumarate [Perforomist] 2 ml INH BID 03/16/18 [History] Potassium 99 mg PO DAILY 03/16/18 [History] Fexofenadine [Evie] 60 mg PO DAILY 02/13/20 [History] Theophylline [Niall-24] 200 mg PO DAILY 02/13/20 [History] Past Medical History HEENT History: Reports: Allergic Rhinitis, Impaired Vision, Other (See Below) Other HEENT History: GLasses Cardiovascular History: Reports: High Cholesterol, Hypertension Respiratory History: Reports: Asthma, COPD Gastrointestinal History: Reports: GERD Genitourinary History: Reports: Other (See Below) Other Genitourinary History: Stress incontinence 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 Musculoskeletal History: Reports: Osteoarthritis Neurological History: Reports: None Psychiatric History: Reports: Anxiety Endocrine/Metabolic History: Reports: Diabetes, Type II, Hypothyroidism Hematologic History: Reports: None Immunologic History: Reports: None Oncologic (Cancer) History: Reports: None Dermatologic History: Reports: None - Infectious Disease History Infectious Disease History: Reports: None - Past Surgical History Head Surgeries/Procedures: Reports: None Female Surgical History: Reports: Hysterectomy Social & Family History - Family History Family Medical History: Noncontributory - Caffeine Use Caffeine Use: Reports: None - Living Situation & Occupation Living situation: Reports: , with Family Occupation: Retired ED ROS GENERAL - Review of Systems Review Of Systems: Comprehensive ROS is negative, except as noted in HPI. ED EXAM, GENERAL - Physical Exam Exam: See Below Exam Limited By: No Limitations General Appearance: Alert, WD/WN, Severe Distress Eye Exam: Bilateral Eye: EOMI, Normal Inspection Ears: Normal External Exam, Hearing Grossly Normal Nose: Normal Inspection Throat/Mouth: Normal Inspection Head: Atraumatic, Normocephalic Neck: Normal Inspection, Supple, Non-Tender Respiratory/Chest: Respiratory Distress, Crackles, Wheezing, Accessory Muscle Use Cardiovascular: Normal Peripheral Pulses, No Edema, No Gallop, No JVD, No Murmur , No Rub, Tachycardia Peripheral Pulses: 2+: Radial (L), Radial (R) GI/Abdominal: Normal Bowel Sounds, Soft, Non-Tender (Female) Exam: Deferred Rectal (Female) Exam: Deferred Back Exam: Normal Inspection, Decreased Range of Motion Extremities: Normal Inspection, Normal Range of Motion, Non-Tender, Normal Capillary Refill, No Pedal Edema Neurological: Alert, Oriented, CN II-XII Intact, Normal Cognition, No Motor/ Sensory Deficits Psychiatric: Normal Affect, Normal Mood Skin Exam: Warm, Dry, Intact, Normal Color, No Rash Lymphatic: No Adenopathy Course - Vital Signs Last Recorded V/S: Last Vital Signs Temp 96.9 F 02/13/20 16:45 Pulse 108 H 02/13/20 16:45 Resp 38 H 02/13/20 16:45 BP Pulse Ox 86 L 02/13/20 16:45 - Orders/Labs/Meds Orders: Active Orders 24 hr Category Date Time Status EKG Documentation Completion [RC] STAT Care 02/13/20 16:32 Active Peripheral IV Care [RC] . DIRECTED Care 02/13/20 16:34 Active CULTURE BLOOD [BC] Stat Lab 02/13/20 16:34 Ordered CULTURE BLOOD [BC] Stat Lab 02/13/20 16:34 Ordered Sodium Chloride 0.9% [Saline Flush] Med 02/13/20 16:30 Active 10 ml FLUSH ASDIRECTED PRN Blood Culture x2 Reflex Set [OM.PC] Stat Oth 02/13/20 16:34 Ordered Isolation [COMM] Routine Ot 02/13/20 16:34 Active Peripheral IV Insertion Adult [OM.PC] Stat Oth 02/13/20 16:32 Ordered Medication Orders Sodium Chloride (Saline Flush) 10 ml FLUSH ASDIRECTED PRN PRN Reason: Keep Vein Open Last Admin: 02/13/20 16:45 Dose: 10 ml Labs: Laboratory Tests 02/13/20 02/13/20 02/13/20 Range/Units 16:41 16:42 16:42 WBC 13.5 H (5.0-10.0) 10^3/uL RBC 4.62 (4.2-5.4) 10^6/uL Hgb 13.8 (12.0-16.0) g/dL Hct 42.8 (37.0-47.0) % MCV 92.6 (80-100) fL MCH 29.9 (27.0-34.0) pg MCHC 32.2 L (33.0-35.0) g/dL Plt Count 257 (150-450) 10^3/uL Neut % (Auto) 80.1 H (42.2-75.2) % Lymph % (Auto) 8.6 L (20.5-50.1) % Hinds % (Auto) 11.1 H (2-8) % Eos % (Auto) 0.1 L (1.0-3.0) % Baso % (Auto) 0.1 (0.0-1.0) % D-Dimer, Quantitative (0-400) ng/mL ABG pH (7.35-7.45) ABG pCO2 (35-45) mmHg ABG pO2 (70-100) mmHg ABG HCO3 (22-26) mmol/L ABG O2 Saturation (95-100) % ABG Base Excess ((-2)-(+3)) mmol/L Clay Test O2 Delivery Device Sodium 141 (136-145) mmol/L Potassium 3.9 (3.5-5.1) mmol/L Chloride 99 (98-107) mmol/L Carbon Dioxide 32 (21-32) mmol/L Anion Gap 13.9 H (7-13) mEq/L BUN 11 (7-18) mg/dL Creatinine 0.95 (0.55-1.02) mg/dL Est Cr Clr Drug Dosing TNP Estimated GFR (MDRD) 56 BUN/Creatinine Ratio 11.6 (No establ ref range) Glucose 213 H (74-99) mg/dL Lactic Acid (0.4-2.0) mmol/L Calcium 9.2 (8.5-10.1) mg/dL Total Bilirubin 0.3 (0.2-1.0) mg/dL AST 32 (15-37) U/L ALT 23 (14-59) U/L Alkaline Phosphatase 54 (46-116) U/L Lactate Dehydrogenase 161 (81-234) U/L Troponin I 0.509 H* (0.000-0.056) ng/mL C-Reactive Protein 8.4 H (0.0-0.9) mg/dL B-Natriuretic Peptide (0-100) pg/ml Total Protein 8.0 (6.4-8.2) g/dL Albumin 3.7 (3.4-5.0) g/dL Globulin 4.3 Albumin/Globulin Ratio 0.9 SARS-CoV-2 RNA (RT-PCR) Negative (NEGATIVE) 02/13/20 02/13/20 02/13/20 Range/Units 16:42 16:42 16:42 WBC (5.0-10.0) 10^3/uL RBC (4.2-5.4) 10^6/uL Hgb (12.0-16.0) g/dL Hct (37.0-47.0) % MCV (80-100) fL MCH (27.0-34.0) pg MCHC (33.0-35.0) g/dL Plt Count (150-450) 10^3/uL Neut % (Auto) (42.2-75.2) % Lymph % (Auto) (20.5-50.1) % Hinds % (Auto) (2-8) % Eos % (Auto) (1.0-3.0) % Baso % (Auto) (0.0-1.0) % D-Dimer, Quantitative 304 (0-400) ng/mL ABG pH (7.35-7.45) ABG pCO2 (35-45) mmHg ABG pO2 (70-100) mmHg ABG HCO3 (22-26) mmol/L ABG O2 Saturation (95-100) % ABG Base Excess ((-2)-(+3)) mmol/L Clay Test O2 Delivery Device Sodium (136-145) mmol/L Potassium (3.5-5.1) mmol/L Chloride (98-107) mmol/L Carbon Dioxide (21-32) mmol/L Anion Gap (7-13) mEq/L BUN (7-18) mg/dL Creatinine (0.55-1.02) mg/dL Est Cr Clr Drug Dosing Estimated GFR (MDRD) BUN/Creatinine Ratio (No establ ref range) Glucose (74-99) mg/dL Lactic Acid 1.3 (0.4-2.0) mmol/L Calcium (8.5-10.1) mg/dL Total Bilirubin (0.2-1.0) mg/dL AST (15-37) U/L ALT (14-59) U/L Alkaline Phosphatase (46-116) U/L Lactate Dehydrogenase (81-234) U/L Troponin I (0.000-0.056) ng/mL C-Reactive Protein (0.0-0.9) mg/dL B-Natriuretic Peptide 104 H (0-100) pg/ml Total Protein (6.4-8.2) g/dL Albumin (3.4-5.0) g/dL Globulin Albumin/Globulin Ratio SARS-CoV-2 RNA (RT-PCR) (NEGATIVE) 02/13/20 Range/Units 17:17 WBC (5.0-10.0) 10^3/uL RBC (4.2-5.4) 10^6/uL Hgb (12.0-16.0) g/dL Hct (37.0-47.0) % MCV (80-100) fL MCH (27.0-34.0) pg MCHC (33.0-35.0) g/dL Plt Count (150-450) 10^3/uL Neut % (Auto) (42.2-75.2) % Lymph % (Auto) (20.5-50.1) % Hinds % (Auto) (2-8) % Eos % (Auto) (1.0-3.0) % Baso % (Auto) (0.0-1.0) % D-Dimer, Quantitative (0-400) ng/mL ABG pH 7.32 L (7.35-7.45) ABG pCO2 57 H (35-45) mmHg ABG pO2 68 L (70-100) mmHg ABG HCO3 28.3 H (22-26) mmol/L ABG O2 Saturation 93 L (95-100) % ABG Base Excess 2 ((-2)-(+3)) mmol/L Clay Test Performed O2 Delivery Device Bipap Sodium (136-145) mmol/L Potassium (3.5-5.1) mmol/L Chloride (98-107) mmol/L Carbon Dioxide (21-32) mmol/L Anion Gap (7-13) mEq/L BUN (7-18) mg/dL Creatinine (0.55-1.02) mg/dL Est Cr Clr Drug Dosing Estimated GFR (MDRD) BUN/Creatinine Ratio (No establ ref range) Glucose (74-99) mg/dL Lactic Acid (0.4-2.0) mmol/L Calcium (8.5-10.1) mg/dL Total Bilirubin (0.2-1.0) mg/dL AST (15-37) U/L ALT (14-59) U/L Alkaline Phosphatase (46-116) U/L Lactate Dehydrogenase (81-234) U/L Troponin I (0.000-0.056) ng/mL C-Reactive Protein (0.0-0.9) mg/dL B-Natriuretic Peptide (0-100) pg/ml Total Protein (6.4-8.2) g/dL Albumin (3.4-5.0) g/dL Globulin Albumin/Globulin Ratio SARS-CoV-2 RNA (RT-PCR) (NEGATIVE) Influenza A: Negative Influenza B: Negative Meds: Medications Generic Name Dose Route Start Last Admin Trade Name Freq PRN Reason Stop Dose Admin Sodium Chloride 10 ml 02/13/20 16:30 02/13/20 16:45 Saline Flush FLUSH 10 ml ASDIRECTED PRN Administration Keep Vein Open Discontinued Medications Generic Name Dose Route Start Last Admin Trade Name Freq PRN Reason Stop Dose Admin Albuterol/Ipratropium Confirm 02/13/20 16:35 02/13/20 17:30 Duoneb 3.0-0.5 Mg/3 Ml Administered 02/13/20 16:36 3 ml Dose Administration 3 ml .ROUTE .[facility] - Radiology Interpretation Free Text/Narrative:: Chest xray: FINDINGS: Lungs: Unremarkable. No consolidation. Pleural space: Unremarkable. No pleural effusion. No pneumothorax. Heart/Mediastinum: Unremarkable. No cardiomegaly. Bones/joints: Unremarkable. IMPRESSION: No acute findings. Thank you for allowing us to participate in the care of your patient. Dictated and Authenticated by: Amador Guerrero MD 02/13/2020 5:17 PM Central Time ([place] & [place]) See rad report - Re-Assessments/Exams Free Text/Narrative Re-Assessment/Exam: 02/13/20 18:44 Discussed patient case with Dr. Hamilton who agreed to accept the patient for transfer to [facility]. 02/13/20 18:55 Departure - Departure Time of Disposition: 18:45 Disposition: DC/Tfer to Acute Hospital 02 Condition: Poor, Serious Clinical Impression: Acute respiratory distress, NSTEMI (non-ST elevated myocardial infarction), Acute exacerbation of chronic obstructive pulmonary disease (COPD) - Discharge Information *PRESCRIPTION DRUG MONITORING PROGRAM REVIEWED*: No *COPY OF PRESCRIPTION DRUG MONITORING REPORT IN PATIENT ALLAN: No Forms: ED Department Discharge, Interfacility Transfer EMTALA Sepsis Event Note - Focused Exam Vital Signs: Vital Signs Temp Pulse Resp Pulse Ox 02/13/20 16:45 96.9 F 108 H 38 H 86 L Date Exam was Performed: 02/13/20 Time Exam was Performed: 19:10 - My Orders Last 24 Hours: My Active Orders 02/13/20 16:30 Sodium Chloride 0.9% [Saline Flush] 10 ml FLUSH ASDIRECTED PRN 02/13/20 16:32 EKG Documentation Completion [RC] STAT Peripheral IV Insertion Adult [OM.PC] Stat 02/13/20 16:34 Peripheral IV Care [RC] . DIRECTED CULTURE BLOOD [BC] Stat CULTURE BLOOD [BC] Stat Blood Culture x2 Reflex Set [OM.PC] Stat Isolation [COMM] Routine - Assessment/Plan Last 24 Hours: My Active Orders 02/13/20 16:30 Sodium Chloride 0.9% [Saline Flush] 10 ml FLUSH ASDIRECTED PRN 02/13/20 16:32 EKG Documentation Completion [RC] STAT Peripheral IV Insertion Adult [OM.PC] Stat 02/13/20 16:34 Peripheral IV Care [RC] . DIRECTED CULTURE BLOOD [BC] Stat CULTURE BLOOD [BC] Stat Blood Culture x2 Reflex Set [OM.PC] Stat Isolation [COMM] Routine
[2020-02-13 17:13] LABS: ANION GAP 13.9 mEq/L (7-13); CHLORIDE,CL 99 mmol/L (98-107); SODIUM,NA 141 mmol/L (136-145)
[2020-02-13 17:22] VITALS: PULSE 108
[2020-02-13 17:32] LABS: ALLEN TEST PERFORMED; BASE EXCESS ARTERIAL 2 mmol/L ((-2)-(+3)); BICARBONATE,ARTERIAL 28.3 mmol/L (22-26); O2 DELIVERY DEVICE BIPAP; O2 SATURATION ARTERIAL 93 % (95-100); PCO2 ARTERIAL 57 mmHg (35-45); PO2 ARTERIAL 68 mmHg (70-100)
== END 2020-02-13 20:15 ==
LOC: DL.ED 16:20
DX: J44.1 Chronic obstructive pulmonary disease with (acute) exacerbation (principal); I21.4 Non-ST elevation (NSTEMI) myocardial infarction; E78.00 Pure hypercholesterolemia, unspecified; I10 Essential (primary) hypertension; J44.9 Chronic obstructive pulmonary disease, unspecified; K21.9 Gastro-esophageal reflux disease without esophagitis; F41.9 Anxiety disorder, unspecified; E11.9 Type 2 diabetes mellitus without complications; E03.9 Hypothyroidism, unspecified; Z79.84 Long term (current) use of oral hypoglycemic drugs; Z88.1 Allergy status to other antibiotic agents; Z88.8 Allergy status to other drugs, medicaments and biological substances; Z79.899 Other long term (current) drug therapy
CPT/HCPCS: 36415; 36600; 71045; 80053; 82803; 83605; 83615; 83880; 84484; 85025; 85379; 86140; 87040; 87804; 93005; 94660; 99285; U0002; 99284; J7620-GY

== ENCOUNTER 2020-02-28 08:27 | Inpatient (IN) | payer MEDICARE, BC, MEDICAID ==
[2020-02-28] MEDS ORDERED: Docusate Sodium 100 MG Cap PO PRN (13:39)
[2020-02-28] MEDS ORDERED: Magnesium Hydroxide 400 MG/5 ML Susp 30 ML Cup PO PRN (13:39)
[2020-02-28] MEDS ORDERED: ALBUTEROL 90 MCG INH PRN (13:55)
--- NOTE | 2020-02-28 14:04 | PCM.HP ---
H&P History of Present Illness - General Date of Service: 02/28/20 Admit Problem/Dx: Admission Diagnosis/Problem Admission Diagnosis/Problem Weakness Source of Information: Patient History Limitations: Reports: No Limitations - History of Present Illness Initial Comments - Free Text/Narative: Mrs. Elias an 79year old patient with a history of COPD, DMT2, CAD, and Hypertension who presented to [facility] with SOB. COVID was negative Her troponin was elevated on admit. She was treated for COPD exacerbation, pneumonia, and CHF. She was on a Bipap and then transitioned to a high flow nasal cannula mask and eventually to NC. Echo showed an EF of 60-65%, diastolic dysfunction, and severe RVH. She went into ARF which did eventually resolve. Cardiology was consulted but she was unable to have an angiogram due to her poor respiratory status. She had melena stools and epigastric pain for which GI was consulted. An EGD was contemplated but couldn't be done due to her poor respiratory status. Hemoglobin has remained stable. Patient apparently refused further evaluation for GIB. Her symptoms improved. PT worked with patient and recommended discharge to [facility] for PT/OT. She was discharged to [facility] to continue PT/OT. At bedside evaluation, patient was seen lying in bed in ni acute distress. She denies chest pain, SOB, fever, chills. Currently on 2 L of oxygen via SC. Improves with: Reports: None Worsens with: Reports: None Associated Symptoms: Reports: No Other Symptoms - Related Data Allergies/Adverse Reactions: Allergies Allergy/AdvReac Type Severity Reaction Status Date / Time cefdinir [From Omnicef] Allergy Cannot Verified 02/28/20 10:48 Remember escitalopram oxalate Allergy Cannot Verified 02/28/20 10:48 [From Lexapro] Remember hydrochlorothiazide Allergy Cannot Verified 02/28/20 10:48 Remember lisinopril Allergy Cannot Verified 02/28/20 10:48 Remember oxymetazoline HCl Allergy Cannot Verified 02/28/20 10:48 [From Afrin (oxymetazoline)] Remember paroxetine Allergy Cannot Verified 02/28/20 10:48 Remember sertraline Allergy Cannot Verified 02/28/20 10:48 Remember venlafaxine Allergy Cannot Verified 02/28/20 10:48 Remember Home Medications: Home Meds Acetaminophen [Tylenol Extra Strength] 2 tab PO Q6H PRN 10/22/14 [History] Budesonide [Pulmicort] 2 ml INH BID 10/22/14 [History] Fluticasone Propionate [Flonase] 1 spray NASBOTH BID 10/22/14 [History] Furosemide [Lasix] 20 mg PO DAILY 10/22/14 [History] Ipratropium/Albuterol Sulfate [Iprat-Albut 0.5-3(2.5) MG/3 ML] 3 ml INH Q6HR PRN 10/22/14 [History] Losartan [Cozaar] 100 mg PO DAILY 10/22/14 [History] Multivitamin [Multi-Vitamin Daily] 1 tab PO DAILY 10/22/14 [History] Omeprazole [Prilosec] 20 mg PO DAILY 10/22/14 [History] traZODone 50 mg PO BEDTIME 10/22/14 [History] Calcium Carbonate/Vitamin D3 [Calcium 600 + Vit D Tablet] 1 mg PO DAILY [History] Levothyroxine [Synthroid] 50 mcg PO DAILY 12/09/15 [History] Fish Oil/[place]-3 Fatty Acids [Fish Oil 1,000 MG] 2 gm PO DAILY 03/16/18 [History ] Formoterol Fumarate [Perforomist] 2 ml INH BID 03/16/18 [History] Potassium 99 mg PO DAILY 03/16/18 [History] Fexofenadine [Evie] 60 mg PO DAILY 02/13/20 [History] Theophylline [Niall-24] 200 mg PO DAILY 02/13/20 [History] Albuterol [Ventolin HFA] 2 oz PO Q4H PRN 02/28/20 [History] Amoxicillin/Clavulanate K [Augmentin 875-125 MG] 1 tab PO BID MDD x 2 doses only 02/28/20 [History] Clopidogrel [Plavix] 75 mg PO .[id number] MDD x 30 days- end day 03/29/20 02/28/20 [ History] Metoprolol Tartrate 25 mg PO BID 02/28/20 [History] Non-Formulary Medication [NF Drug] 1 puff INH DAILY 02/28/20 [History] Nystatin 5 ml PO QID MDD x 5 days from 02/28/20 02/28/20 [History] Sucralfate 1 gm PO QIDACANDBED MDD x14 days from 02/28/20 02/28/20 [History] metFORMIN [Glucophage] 500 mg PO WITHBREAKFAST 02/28/20 [History] predniSONE 5 mg PO .TAPERSEELABELINSTRU MDD x 9 days from 02/2702/28/20 [History] Past Medical History HEENT History: Reports: Allergic Rhinitis, Cataract, Impaired Vision, Other ( See Below) Other HEENT History: GLasses Cardiovascular History: Reports: High Cholesterol, Hypertension, Other (See Below) Other Cardiovascular History: NSTEMI 2019 Respiratory History: Reports: Asthma, COPD Gastrointestinal History: Reports: GERD Genitourinary History: Reports: Other (See Below) Other Genitourinary History: Stress incontinence [employer] History: Reports: Musculoskeletal History: Reports: Back Pain, Chronic, Osteoarthritis Neurological History: Reports: None Psychiatric History: Reports: Anxiety Endocrine/Metabolic History: Reports: Diabetes, Type II, Hypothyroidism Hematologic History: Reports: None Immunologic History: Reports: None Oncologic (Cancer) History: Reports: None Dermatologic History: Reports: None - Infectious Disease History Infectious Disease History: Reports: None - Past Surgical History Head Surgeries/Procedures: Reports: None Female Surgical History: Reports: Hysterectomy Social & Family History - Family History Family Medical History: Noncontributory - Tobacco Use Smoking Status *Q: Former Smoker Used Tobacco, but Quit: Yes Month/Year Tobacco Last Used: 2011 Second Hand Smoke Exposure: No - Caffeine Use Caffeine Use: Reports: Coffee - Recreational Drug Use Recreational Drug Use: No - Living Situation & Occupation Living situation: Reports: , with Family Occupation: Retired H&P Review of Systems - Review of Systems: Review Of Systems: See Below General: Reports: No Symptoms HEENT: Reports: No Symptoms Pulmonary: Reports: No Symptoms Cardiovascular: Reports: No Symptoms Gastrointestinal: Reports: No Symptoms Genitourinary: Reports: No Symptoms Musculoskeletal: Reports: No Symptoms Skin: Reports: No Symptoms Psychiatric: Reports: No Symptoms Neurological: Reports: No Symptoms Hematologic/Lymphatic: Reports: No Symptoms Immunologic: Reports: No Symptoms Exam - Exam Exam: See Below - Vital Signs Vital Signs: Last Vital Signs Temp 97.2 F 02/28/20 13:30 Pulse 82 02/28/20 13:30 Resp 18 02/28/20 13:30 BP 145/72 H 02/28/20 13:30 Pulse Ox 96 02/28/20 13:30 Weight: 134 lb - Exam Quality Assessment: Other (on NC) General: Alert, Oriented, 4 HEENT: PERRLA, Hearing Intact, Mucosa Moist & [place], Nares Patent, Normal Nasal Septum, Posterior Pharynx Clear, Conjunctiva Clear, EOMI, EACs Clear, TMs Clear Neck: Supple, Trachea Midline, 2 Lungs: Clear to Auscultation, Normal Respiratory Effort Cardiovascular: Regular Rate, Regular Rhythm GI/Abdominal Exam: Normal Bowel Sounds, Soft, Non-Tender, No Organomegaly, No Distention, No Abnormal Bruit, No Mass, Pelvis Stable (Female) Exam: Normal External Exam, Normal Speculum Exam, Normal Bimanual Exam Rectal (Female) Exam: Normal Exam, Normal Rectal Tone Back Exam: Normal Inspection, Full Range of Motion, NT Extremities: Normal Inspection, Normal Range of Motion, Non-Tender, No Pedal Edema, Normal Capillary Refill Skin: Warm, Dry, Intact Neurological: Cranial Nerves Intact, Reflexes Equal Bilateral Neuro Extensive - Mental Status: Alert, Oriented x3, Normal Mood/Affect, Normal Cognition Neuro Extensive - Motor, Sensory, Reflexes: CN II-XII Intact, Normal Gait, Normal Reflexes Psychiatric: Alert, Normal Affect, Normal Mood - Problem List (1) Weakness generalized SNOMED Code(s): 50414158 ICD Code: R53.1 - WEAKNESS Status: Acute Current Visit: Yes Problem List Initiated/Reviewed/Updated: Yes Orders Last 24hrs: Active Orders 24 hr Category Date Time Status Patient Status [ADT] Routine ADT 02/28/20 13:40 Ordered Ambulate [RC] ASDIRECTED Care 02/28/20 13:39 Ordered Blood Glucose Check, Bedside [RC] QIDACANDBED Care 02/28/20 13:39 Ordered Notify Provider Vital Signs [RC] ASDIRECTED Care 02/28/20 13:50 Ordered Oxygen Therapy [RC] PRN Care 02/28/20 13:40 Ordered VTE/DVT Education [RC] PER UNIT ROUTINE Care 02/28/20 13:40 Ordered Vital Signs [RC] Q4H Care 02/28/20 13:40 Ordered OT Evaluation and Treatment [CONS] Routine Cons 02/28/20 13:39 Ordered PT Evaluation and Treatment [CONS] Routine Cons 02/28/20 13:39 Ordered Consistent Carbohydrate Diet [DIET] Diet 02/28/20 Dinner Ordered Acetaminophen [Tylenol Extra Strength] Med 02/28/20 13:55 Ordered 1,000 mg PO Q6H PRN Albuterol [Proventil HFA] Med 02/28/20 13:55 Ordered 2 oz INH Q4H PRN Albuterol/Ipratropium [DuoNeb 3.0-0.5 MG/3 ML] Med 02/28/20 13:55 Ordered 3 ml INH Q6HR PRN Amoxicillin/Clavulanate K [Augmentin 875 MG/125 MG] Med 02/28/20 21:00 Ordered 1 tab PO BID Budesonide [Pulmicort] Med 02/28/20 21:00 Ordered 0.5 mg INH BID Calcium Carbonate/Vitamin D3 [Calcium 600 + Vit D Med 02/29/20 09:00 Ordered Tablet] 1 mg PO DAILY Clopidogrel [Plavix] Med 02/28/20 14:00 Ordered 75 mg PO .[id number] Docusate Sodium [Colace] Med 02/28/20 13:39 Ordered 100 mg PO BID PRN Enoxaparin [Lovenox] Med 02/29/20 09:00 Ordered 40 mg SUBCUT DAILY Fish Oil/[place]-3 Fatty Acids [Fish Oil 1,000 MG] Med 02/29/20 09:00 Ordered 2 gm PO DAILY Fluticasone Propionate [Flonase] Med 02/28/20 21:00 Ordered 1 spray NASBOTH BID Formoterol Fumarate [Perforomist] Med 02/28/20 21:00 Ordered 2 ml INH BID Furosemide [Lasix] Med 02/29/20 09:00 Ordered 20 mg PO DAILY Levothyroxine [Synthroid] Med 02/29/20 09:00 Ordered 50 mcg PO DAILY Losartan [Cozaar] Med 02/29/20 09:00 Ordered 100 mg PO DAILY Magnesium Hydroxide [Milk of Magnesia] Med 02/28/20 13:39 Ordered 30 ml PO Q12H PRN Metoprolol Tartrate [Lopressor] Med 02/28/20 21:00 Ordered 25 mg PO BID Multivitamin [Multi-Vitamin Daily] Med 02/29/20 09:00 Ordered 1 tab PO DAILY Non-Formulary Medication [NF Drug] Med 02/29/20 09:00 Ordered 1 puff INH DAILY Nystatin Med 02/28/20 17:00 Ordered 5 ml PO QID Omeprazole Med 02/29/20 09:00 Ordered 20 mg PO DAILY Potassium [Potassium] Med 02/29/20 09:00 Ordered 99 mg PO DAILY Sucralfate [Carafate] Med 02/28/20 17:00 Ordered 1 gm PO QIDACANDBED Theophylline [Niall-24] Med 02/29/20 09:00 Ordered 200 mg PO DAILY metFORMIN [Glucophage] Med 02/29/20 08:00 Ordered 500 mg PO WITHBREAKFAST predniSONE Med 02/28/20 14:00 Ordered 5 mg PO .TAPERSEELABELINSTRU traZODone Med 02/28/20 21:00 Ordered 50 mg PO BEDTIME Resuscitation Status Routine Resus Stat 02/28/20 13:39 Ordered Medication Orders Acetaminophen (Tylenol Extra Strength) 1,000 mg PO Q6H PRN PRN Reason: Pain (mild 1-3) Albuterol (Proventil Hfa) gm INH Q4H PRN PRN Reason: Wheezing Albuterol/Ipratropium (Duoneb 3.0-0.5 Mg/3 Ml) 3 ml INH Q6HR PRN PRN Reason: Wheezing Amoxicillin/Clavulanate Potassium (Augmentin 875 Mg/125 Mg) 1 tab PO BID BEN Budesonide (Pulmicort) 0.5 mg INH BID BEN Clopidogrel Bisulfate (Plavix) 75 mg PO .[id number] BEN Docusate Sodium (Colace) 100 mg PO BID PRN PRN Reason: Constipation Enoxaparin Sodium (Lovenox) 40 mg SUBCUT DAILY BEN Fluticasone Propionate (Flonase) gm NASBOTH BID BEN Furosemide (Lasix) 20 mg PO DAILY BEN Levothyroxine Sodium (Synthroid) 50 mcg PO DAILY BEN Magnesium Hydroxide (Milk Of Magnesia) 30 ml PO Q12H PRN PRN Reason: Constipation Metformin HCl (Glucophage) 500 mg PO WITHBREAKFAST BEN Metoprolol Tartrate (Lopressor) 25 mg PO BID BEN Non-Formulary Medication (Calcium Carbonate/Vitamin D3 [Calcium 600 + Vit D Tablet]) 1 mg PO DAILY BEN Non-Formulary Medication (Fish Oil/[place]-3 Fatty Acids [Fish Oil 1,000 Mg]) 2 gm PO DAILY BEN Non-Formulary Medication (Formoterol Fumarate [Perforomist]) 2 ml INH BID BEN Non-Formulary Medication (Losartan [Cozaar]) 100 mg PO DAILY BEN Non-Formulary Medication (Multivitamin [Multi-Vitamin Daily]) 1 tab PO DAILY BEN Non-Formulary Medication (Nf Drug) each INH DAILY BEN Non-Formulary Medication (Nystatin) 5 ml PO QID BEN Non-Formulary Medication (Potassium [Potassium]) 99 mg PO DAILY BEN Omeprazole (Omeprazole) 20 mg PO DAILY BEN Prednisone (Prednisone) 5 mg PO .TAPERSEELABELINSTRU BEN Sucralfate (Carafate) 1 gm PO QIDACANDBED BEN Theophylline (Niall-24) 200 mg PO DAILY BEN Trazodone HCl (Trazodone) 50 mg PO BEDTIME BEN Assessment/Plan Comment:: #Generalized weakness from deconditioning following hospitalization -PT/OT #Acute respiratory failure with hypoxia, hypercapnia due to CAP, NSTEMI, possible CHF, COPD -Resolved -Continue supplemental oxygen and wean off as able -On Augmentin. Will complete course tomorrow -Continue Duonebs,pulmicort, formoterol, Prednisone,Lasix #COPD -IS and flutter -Continue duonebs, solumedrol, formoterl nebs BID, pulmicort nebs #NSTEMI -Cardiology evaluated cardiology. Angiogram was not done due to patient being unstable -TTE: EF of 60-65%. -Continue Plavix, ASA, Statin, BB #Hypertension -BP within acceptable limits -Continue current care -Monitor BP daily #DMII -Continue Metformin -SSI -Accu-cheks -Hypoglycemic protocol #DVT ppx -Ambulate patient -No heparin #CODE -DNR DNI
[2020-02-28] MEDS: Albuterol/Ipratropium 3.0-0.5 MG/3 ML Neb Soln INH PRN (15:52)
[2020-02-28] MEDS: Clopidogrel 75 MG Tab PO SCH (17:40)
[2020-02-28] MEDS: Loperamide 2 MG Cap PO PRN (17:40)
[2020-02-28] MEDS: Pantoprazole 40 MG Tab.CR PO SCH (17:40)
[2020-02-28] MEDS: FORMOTEROL FUMARATE INH SCH (17:40)
[2020-02-28] MEDS: Nystatin Susp 100,000 Unit/ML 5 ML UD Cup PO SCH ×2 (17:40→20:40)
[2020-02-28] MEDS: Budesonide 0.5 MG/2 ML Neb Susp INH SCH (17:40)
[2020-02-28] MEDS: Sucralfate 1 GM Tab PO SCH ×2 (17:40→20:39)
[2020-02-28] MEDS: Fluticasone Propionate Nasal Spray 16 GM Bottle NASBOTH SCH (20:38)
[2020-02-28] MEDS: Metoprolol Tartrate 25 MG Tab PO SCH (20:39)
[2020-02-28] MEDS: Amoxicillin/Clavulanate K 875-125 MG Tab PO SCH (20:39)
[2020-02-28] MEDS: traZODone 50 MG Tab PO SCH (20:40)
[2020-02-29] MEDS: Sucralfate 1 GM Tab PO SCH ×4 (06:45→20:28)
[2020-02-29] MEDS: Levothyroxine 50 MCG Tab PO SCH (06:45)
[2020-02-29] MEDS: Tiotropium Inhaler 18 MCG Inhalation Powder Cap Kit of 5 INH SCH (06:46)
[2020-02-29] MEDS: Budesonide 0.5 MG/2 ML Neb Susp INH SCH ×2 (07:47→18:05)
[2020-02-29] MEDS: Multivitamins,Therapeutic Tab PO SCH (08:29)
[2020-02-29] MEDS: predniSONE 5 MG Tab PO SCH (08:29)
[2020-02-29] MEDS: Losartan 50 MG Tab PO SCH (08:30)
[2020-02-29] MEDS: metFORMIN 500 MG Tab PO SCH (08:31)
[2020-02-29] MEDS: Furosemide 20 MG Tab PO SCH (08:31)
[2020-02-29] MEDS: Amoxicillin/Clavulanate K 875-125 MG Tab PO SCH (08:31)
[2020-02-29] MEDS: Calcium Carbonate/Vitamin D3 1250 MG-200 Unit Tab PO SCH (08:32)
[2020-02-29] MEDS: Metoprolol Tartrate 25 MG Tab PO SCH ×2 (08:33→20:29)
[2020-02-29] MEDS: Nystatin Susp 100,000 Unit/ML 5 ML UD Cup PO SCH ×4 (08:34→20:30)
[2020-02-29] MEDS: FISH OIL PO SCH (08:35)
[2020-02-29] MEDS: FATTY ACIDS PO SCH (08:35)
[2020-02-29] MEDS: OMEGA PO SCH (08:35)
[2020-02-29] MEDS: POTASSIUM 99 MG PO SCH (08:35)
[2020-02-29] MEDS: Fluticasone Propionate Nasal Spray 16 GM Bottle NASBOTH SCH ×2 (08:36→20:29)
[2020-02-29] MEDS: THEOPHYLLINE 400 MG PO SCH (08:37)
[2020-02-29] MEDS ORDERED: Enoxaparin 40 MG/0.4 ML Syringe SUBCUT SCH (09:00)
[2020-02-29] MEDS ORDERED: Omeprazole 20 MG Cap.CR PO SCH (09:00)
[2020-02-29] MEDS: FORMOTEROL FUMARATE INH SCH ×2 (10:56→18:05)
[2020-02-29] MEDS: Loperamide 2 MG Cap PO PRN (14:51)
[2020-02-29] MEDS: Pantoprazole 40 MG Tab.CR PO SCH (18:05)
[2020-02-29] MEDS: Acetaminophen 500 MG Tab PO PRN (20:31)
[2020-02-29] MEDS: traZODone 50 MG Tab PO SCH (20:31)
[2020-03-01] MEDS: Sucralfate 1 GM Tab PO SCH ×4 (06:06→20:56)
[2020-03-01] MEDS: Levothyroxine 50 MCG Tab PO SCH (06:06)
[2020-03-01] MEDS: Tiotropium Inhaler 18 MCG Inhalation Powder Cap Kit of 5 INH SCH (06:07)
[2020-03-01] MEDS: Budesonide 0.5 MG/2 ML Neb Susp INH SCH ×2 (07:28→17:31)
[2020-03-01] MEDS: FORMOTEROL FUMARATE INH SCH ×2 (07:28→17:41)
[2020-03-01] MEDS: Multivitamins,Therapeutic Tab PO SCH (08:57)
[2020-03-01] MEDS: Losartan 50 MG Tab PO SCH (08:57)
[2020-03-01] MEDS: metFORMIN 500 MG Tab PO SCH (08:58)
[2020-03-01] MEDS: Metoprolol Tartrate 25 MG Tab PO SCH ×2 (08:58→20:57)
[2020-03-01] MEDS: predniSONE 5 MG Tab PO SCH (08:59)
[2020-03-01] MEDS: Furosemide 20 MG Tab PO SCH (08:59)
[2020-03-01] MEDS: Calcium Carbonate/Vitamin D3 1250 MG-200 Unit Tab PO SCH (08:59)
[2020-03-01] MEDS: Nystatin Susp 100,000 Unit/ML 5 ML UD Cup PO SCH ×4 (09:00→20:56)
[2020-03-01] MEDS: THEOPHYLLINE 400 MG PO SCH (09:10)
[2020-03-01] MEDS: FISH OIL PO SCH (09:11)
[2020-03-01] MEDS: FATTY ACIDS PO SCH (09:11)
[2020-03-01] MEDS: OMEGA PO SCH (09:11)
[2020-03-01] MEDS: POTASSIUM 99 MG PO SCH (09:11)
[2020-03-01] MEDS: Fluticasone Propionate Nasal Spray 16 GM Bottle NASBOTH SCH ×2 (09:12→20:58)
[2020-03-01] MEDS: Clopidogrel 75 MG Tab PO SCH (16:48)
[2020-03-01] MEDS: Pantoprazole 40 MG Tab.CR PO SCH (17:31)
[2020-03-01] MEDS: traZODone 50 MG Tab PO SCH (20:57)
[2020-03-02] MEDS: Sucralfate 1 GM Tab PO SCH ×4 (06:00→20:42)
[2020-03-02] MEDS: Levothyroxine 50 MCG Tab PO SCH (06:00)
[2020-03-02] MEDS: Budesonide 0.5 MG/2 ML Neb Susp INH SCH ×2 (07:26→17:49)
[2020-03-02] MEDS: FORMOTEROL FUMARATE INH SCH ×2 (07:26→17:49)
[2020-03-02] MEDS: Tiotropium Inhaler 18 MCG Inhalation Powder Cap Kit of 5 INH SCH (08:53)
[2020-03-02] MEDS: FISH OIL PO SCH (08:54)
[2020-03-02] MEDS: FATTY ACIDS PO SCH (08:54)
[2020-03-02] MEDS: OMEGA PO SCH (08:54)
[2020-03-02] MEDS: THEOPHYLLINE 400 MG PO SCH (08:55)
[2020-03-02] MEDS: POTASSIUM 99 MG PO SCH (08:55)
[2020-03-02] MEDS: Fluticasone Propionate Nasal Spray 16 GM Bottle NASBOTH SCH ×2 (08:56→20:52)
[2020-03-02] MEDS: Nystatin Susp 100,000 Unit/ML 5 ML UD Cup PO SCH ×4 (08:57→20:43)
[2020-03-02] MEDS: metFORMIN 500 MG Tab PO SCH (08:57)
[2020-03-02] MEDS: Losartan 50 MG Tab PO SCH (08:58)
[2020-03-02] MEDS: Calcium Carbonate/Vitamin D3 1250 MG-200 Unit Tab PO SCH (08:58)
[2020-03-02] MEDS: Furosemide 20 MG Tab PO SCH (08:58)
[2020-03-02] MEDS: Metoprolol Tartrate 25 MG Tab PO SCH ×2 (08:58→20:42)
[2020-03-02] MEDS: Multivitamins,Therapeutic Tab PO SCH (08:58)
[2020-03-02] MEDS: predniSONE 5 MG Tab PO SCH (08:59)
[2020-03-02] MEDS: Acetaminophen 500 MG Tab PO PRN (09:14)
[2020-03-02] MEDS: Pantoprazole 40 MG Tab.CR PO SCH (17:49)
[2020-03-02] MEDS: traZODone 50 MG Tab PO SCH (20:42)
[2020-03-03] MEDS: LEVOTHYROXINE 50 MCG PO SCH (06:09)
[2020-03-03] MEDS: Sucralfate 1 GM Tab PO SCH ×4 (06:13→20:26)
[2020-03-03] MEDS: Budesonide 0.5 MG/2 ML Neb Susp INH SCH ×2 (07:22→19:00)
[2020-03-03] MEDS: FORMOTEROL FUMARATE INH SCH ×2 (07:22→19:01)
[2020-03-03] MEDS: Multivitamins,Therapeutic Tab PO SCH (09:32)
[2020-03-03] MEDS: Furosemide 20 MG Tab PO SCH (09:32)
[2020-03-03] MEDS: predniSONE 5 MG Tab PO SCH (09:32)
[2020-03-03] MEDS: Calcium Carbonate/Vitamin D3 1250 MG-200 Unit Tab PO SCH (09:32)
[2020-03-03] MEDS: Losartan 50 MG Tab PO SCH (09:33)
[2020-03-03] MEDS: Metoprolol Tartrate 25 MG Tab PO SCH ×2 (09:34→20:26)
[2020-03-03] MEDS: Nystatin Susp 100,000 Unit/ML 5 ML UD Cup PO SCH ×4 (09:36→20:25)
[2020-03-03] MEDS: metFORMIN 500 MG Tab PO SCH (09:36)
[2020-03-03] MEDS: Fluticasone Propionate Nasal Spray 16 GM Bottle NASBOTH SCH ×2 (09:38→20:26)
[2020-03-03] MEDS: FATTY ACIDS PO SCH (09:39)
[2020-03-03] MEDS: OMEGA PO SCH (09:39)
[2020-03-03] MEDS: FISH OIL PO SCH (09:39)
[2020-03-03] MEDS: POTASSIUM 99 MG PO SCH (09:40)
[2020-03-03] MEDS: Tiotropium Inhaler 18 MCG Inhalation Powder Cap Kit of 5 INH SCH (09:40)
[2020-03-03] MEDS: THEOPHYLLINE 400 MG PO SCH (09:42)
[2020-03-03] MEDS: Clopidogrel 75 MG Tab PO SCH (14:07)
[2020-03-03] MEDS: Pantoprazole 40 MG Tab.CR PO SCH (16:54)
[2020-03-03] MEDS: traZODone 50 MG Tab PO SCH (20:25)
[2020-03-03] MEDS: Acetaminophen 500 MG Tab PO PRN (20:25)
[2020-03-04] MEDS: LEVOTHYROXINE 50 MCG PO SCH (05:42)
[2020-03-04] MEDS: Sucralfate 1 GM Tab PO SCH ×4 (06:15→20:32)
[2020-03-04] MEDS: FORMOTEROL FUMARATE INH SCH ×2 (07:39→17:39)
[2020-03-04] MEDS: Budesonide 0.5 MG/2 ML Neb Susp INH SCH ×2 (07:39→17:34)
[2020-03-04] MEDS: Calcium Carbonate/Vitamin D3 1250 MG-200 Unit Tab PO SCH (08:48)
[2020-03-04] MEDS: Losartan 50 MG Tab PO SCH (08:49)
[2020-03-04] MEDS: metFORMIN 500 MG Tab PO SCH (08:49)
[2020-03-04] MEDS: Multivitamins,Therapeutic Tab PO SCH (08:51)
[2020-03-04] MEDS: Metoprolol Tartrate 25 MG Tab PO SCH ×2 (08:51→20:33)
[2020-03-04] MEDS: predniSONE 5 MG Tab PO SCH (08:52)
[2020-03-04] MEDS: Furosemide 20 MG Tab PO SCH (08:52)
[2020-03-04] MEDS: Tiotropium Inhaler 18 MCG Inhalation Powder Cap Kit of 5 INH SCH (08:53)
[2020-03-04] MEDS: FATTY ACIDS PO SCH (08:54)
[2020-03-04] MEDS: OMEGA PO SCH (08:54)
[2020-03-04] MEDS: Fluticasone Propionate Nasal Spray 16 GM Bottle NASBOTH SCH ×2 (08:54→20:28)
[2020-03-04] MEDS: FISH OIL PO SCH (08:54)
[2020-03-04] MEDS: POTASSIUM 99 MG PO SCH (08:55)
[2020-03-04] MEDS: THEOPHYLLINE 400 MG PO SCH (08:56)
--- NOTE | 2020-03-04 11:03 | PCM.PN ---
- General Info Date of Service: 03/04/20 Admission Dx/Problem (Free Text): Admission Diagnosis/Problem Admission Diagnosis/Problem Weakness Subjective Update: Reports that she is sleepy this morning. States she woke up at 4 am to use the bathroom and had to wake up at 6 am to take medications. Reports that she is still a bit weak. Denies fevers, chills, chest pain, shortness of breath, n/v/d/ c, or any acute symptoms. - Patient Data Vitals - Most Recent: Last Vital Signs Temp 97.6 F 03/04/20 08:19 Pulse 76 03/04/20 08:51 Resp 20 03/04/20 08:19 BP 134/42 L 03/04/20 08:51 Pulse Ox 99 03/04/20 08:19 Weight - Most Recent: 135 lb I&O - Last 24 Hours: Intake & Output 03/03/20 03/04/20 03/04/20 22:59 06:59 14:59 Intake Total 540 510 Balance 540 510 Lab Results Last 24 Hours: Laboratory Results - last 24 hr 03/03/20 03/03/20 03/03/20 Range/Units 11:47 17:01 20:56 POC Glucose 129 H 123 H 125 H (83-110) mg/dl 03/04/20 Range/Units 07:56 POC Glucose 103 (83-110) mg/dl Med Orders - Current: Current Medications Acetaminophen (Tylenol Extra Strength) 1,000 mg PO Q6H PRN PRN Reason: Pain (mild 1-3) Last Admin: 03/03/20 20:25 Dose: 1,000 mg Albuterol/Ipratropium (Duoneb 3.0-0.5 Mg/3 Ml) 3 ml INH Q6HR PRN PRN Reason: Wheezing Last Admin: 02/28/20 15:52 Dose: 3 ml Budesonide (Pulmicort) 0.5 mg INH BIDRT BEN Last Admin: 03/04/20 07:39 Dose: 0.5 mg Calcium Carbonate (Calcium Carbonate/Vitamin D 1250 Mg-200 Unit) 1 tab PO WITHBREAKFAST BEN Last Admin: 03/04/20 08:48 Dose: 1 tab Clopidogrel Bisulfate (Plavix) 75 mg PO Q48H BEN Stop: 03/27/20 15:01 Last Admin: 03/03/20 14:07 Dose: 75 mg Docusate Sodium (Colace) 100 mg PO BID PRN PRN Reason: Constipation Fluticasone Propionate (Flonase) 0 gm NASBOTH BID [facility] Last Admin: 03/04/20 08:54 Dose: 1 spray Furosemide (Lasix) 20 mg PO DAILY [facility] [place] Last Admin: 03/04/20 08:52 Dose: 20 mg Levothyroxine Sodium (Synthroid) 50 mcg PO ACBREAKFAST [facility] [place] Last Admin: 03/04/20 05:42 Dose: 50 mcg Loperamide HCl (Imodium) 2 mg PO Q4H PRN PRN Reason: Diarrhea Last Admin: 02/29/20 14:51 Dose: 2 mg Losartan Potassium (Cozaar) 100 mg PO DAILY [facility] [place] Last Admin: 03/04/20 08:49 Dose: 100 mg Magnesium Hydroxide (Milk Of Magnesia) 30 ml PO Q12H PRN PRN Reason: Constipation Metformin HCl (Glucophage) 500 mg PO WITHBREAKFAST [facility] [place] Last Admin: 03/04/20 08:49 Dose: 500 mg Metoprolol Tartrate (Lopressor) 25 mg PO BID [facility] [place] Last Admin: 03/04/20 08:51 Dose: 25 mg Multivitamins (Thera) 1 each PO DAILY [facility] [place] Last Admin: 03/04/20 08:51 Dose: 1 each Formoterol Fumarate [Perforomist] 2 Ml Neb 2 ml INH BIDRT [facility] [place] Last Admin: 03/04/20 07:39 Dose: 2 ml Pantoprazole Sodium (Protonix) 40 mg PO ACDINNER [facility] [place] Last Admin: 03/03/20 16:54 Dose: 40 mg Albuterol [Ventolin] 90 Mcg Inhaler Own Med 0 each INH Q4H PRN PRN Reason: Wheezing Fish Oil/[place]-3 Fatty Acids [Fish Oil 1,000 Mg] Cap Own Med 0 each PO DAILY [facility] [place] Last Admin: 03/04/20 08:54 Dose: 1 each Potassium 99 Mg Tab (Own Med) 0 each PO DAILY [facility] [place] Last Admin: 03/04/20 08:55 Dose: 1 each Theophylline 400 Mg (Er Tab Own Med) 0 each PO DAILY [facility] [place] Last Admin: 03/04/20 08:56 Dose: 1 each Prednisone (Prednisone) 5 mg PO DAILY [facility] [place] Stop: 03/07/20 09:01 Sucralfate (Carafate) 1 gm PO QIDACANDBED [facility] Stop: 03/13/20 11:01 Last Admin: 03/04/20 06:15 Dose: 1 gm Tiotropium [place] (Spiriva Handihaler) 18 mcg INH DAILY [facility] [place] Last Admin: 03/04/20 08:53 Dose: 18 mcg Trazodone HCl (Trazodone) 50 mg PO BEDTIME [facility] Last Admin: 03/03/20 20:25 Dose: 50 mg Discontinued Medications Amoxicillin/Clavulanate Potassium (Augmentin 875 Mg/125 Mg) 1 tab PO BID [facility] [place] Stop: 02/29/20 09:01 Last Admin: 02/29/20 08:31 Dose: 1 tab Enoxaparin Sodium (Lovenox) 40 mg SUBCUT DAILY [facility] Levothyroxine Sodium (Synthroid) 50 mcg PO ACBREAKFAST [facility] [place] Last Admin: 03/02/20 06:00 Dose: 50 mcg Nystatin (Mycostatin) 5 ml PO QID [facility] [place] Stop: 03/03/20 21:01 Last Admin: 03/03/20 20:25 Dose: 5 ml Prednisone (Prednisone) 15 mg PO DAILY [facility] [place] Stop: 03/01/20 09:01 Last Admin: 03/01/20 08:59 Dose: 15 mg Prednisone (Prednisone) 10 mg PO DAILY [facility] Stop: 03/04/20 09:01 Last Admin: 03/04/20 08:52 Dose: 10 mg Tiotropium [place] (Spiriva Handihaler) [facility] Last Admin: 03/02/20 08:53 Dose: 18 mcg - Exam General: Alert, Oriented, Cooperative, No Acute Distress HEENT: Pupils Equal, Mucous Membr. Moist/[place] Neck: Supple, Trachea Midline Lungs: Clear to Auscultation, Normal Respiratory Effort Cardiovascular: Regular Rate, Regular Rhythm GI/Abdominal Exam: Normal Bowel Sounds, Soft, Non-Tender, No Distention Extremities: Normal Inspection, Non-Tender, No Pedal Edema Skin: Warm, Dry, Intact Neurological: No New Focal Deficit Psy/Mental Status: Alert, Normal Affect, Normal Mood Sepsis Event Note - Evaluation Sepsis Screening Result: No Definite Risk - Focused Exam Vital Signs: Vital Signs Temp Pulse Pulse Resp BP BP Pulse Ox 03/04/20 08:51 76 134/42 L 03/04/20 08:49 134/42 L 03/04/20 08:19 97.6 F 76 20 134/42 L 99 03/04/20 07:46 81 Pulse Ox 03/04/20 08:51 03/04/20 08:49 03/04/20 08:19 03/04/20 07:46 96 Date Exam was Performed: 03/04/20 Time Exam was Performed: 11:00 - Problem List Review Problem List Initiated/Reviewed/Updated: Yes - Plan Plan:: #Generalized weakness from deconditioning following hospitalization -PT/OT -Encouraged patient to participate in therapies. #Acute respiratory failure with hypoxia, hypercapnia due to CAP, NSTEMI, possible CHF, COPD -Resolved -Continue supplemental oxygen and wean off as able -On Augmentin. Will complete course tomorrow -Continue Duonebs,pulmicort, formoterol, Prednisone,Lasix #COPD -IS and flutter -Continue duonebs, solumedrol, formoterl nebs BID, pulmicort nebs #NSTEMI -Cardiology evaluated cardiology. Angiogram was not done due to patient being unstable -TTE: EF of 60-65%. -Continue Plavix, ASA, Statin, BB #Hypertension -BP within acceptable limits -Continue current care -Monitor BP daily #DMII -Continue Metformin -SSI -Accu-cheks -Hypoglycemic protocol #DVT ppx -Ambulate patient -No heparin #CODE -DNR DNI
[2020-03-04] MEDS: Pantoprazole 40 MG Tab.CR PO SCH (16:32)
[2020-03-04] MEDS: traZODone 50 MG Tab PO SCH (20:32)
[2020-03-04] MEDS: Acetaminophen 500 MG Tab PO PRN (20:44)
[2020-03-05] MEDS: LEVOTHYROXINE 50 MCG PO SCH (05:22)
[2020-03-05] MEDS: Sucralfate 1 GM Tab PO SCH ×4 (06:19→21:07)
[2020-03-05] MEDS: FORMOTEROL FUMARATE INH SCH ×2 (07:44→18:02)
[2020-03-05] MEDS: Budesonide 0.5 MG/2 ML Neb Susp INH SCH ×2 (07:44→17:50)
[2020-03-05] MEDS: Calcium Carbonate/Vitamin D3 1250 MG-200 Unit Tab PO SCH (08:26)
[2020-03-05] MEDS: metFORMIN 500 MG Tab PO SCH (08:27)
[2020-03-05] MEDS: Losartan 50 MG Tab PO SCH (08:27)
[2020-03-05] MEDS: Fluticasone Propionate Nasal Spray 16 GM Bottle NASBOTH SCH ×2 (08:28→21:11)
[2020-03-05] MEDS: Furosemide 20 MG Tab PO SCH (08:28)
[2020-03-05] MEDS: predniSONE 5 MG Tab PO SCH (08:29)
[2020-03-05] MEDS: Multivitamins,Therapeutic Tab PO SCH (08:29)
[2020-03-05] MEDS: Metoprolol Tartrate 25 MG Tab PO SCH ×2 (08:29→21:07)
[2020-03-05] MEDS: OMEGA PO SCH (08:31)
[2020-03-05] MEDS: THEOPHYLLINE 400 MG PO SCH (08:31)
[2020-03-05] MEDS: FISH OIL PO SCH (08:31)
[2020-03-05] MEDS: FATTY ACIDS PO SCH (08:31)
[2020-03-05] MEDS: POTASSIUM 99 MG PO SCH (08:31)
[2020-03-05] MEDS: Tiotropium Inhaler 18 MCG Inhalation Powder Cap Kit of 5 INH SCH (08:41)
[2020-03-05] MEDS: Acetaminophen 500 MG Tab PO PRN ×2 (10:52→18:12)
[2020-03-05] MEDS: Clopidogrel 75 MG Tab PO SCH (15:11)
[2020-03-05] MEDS: Pantoprazole 40 MG Tab.CR PO SCH (17:48)
[2020-03-05] MEDS: traZODone 50 MG Tab PO SCH (21:09)
[2020-03-06] MEDS: Calcium Carbonate/Vitamin D3 1250 MG-200 Unit Tab PO SCH (07:42)
[2020-03-06] MEDS: Sucralfate 1 GM Tab PO SCH ×4 (07:42→21:08)
[2020-03-06] MEDS: metFORMIN 500 MG Tab PO SCH (07:42)
[2020-03-06] MEDS: FORMOTEROL FUMARATE INH SCH ×2 (07:51→17:41)
[2020-03-06] MEDS: Budesonide 0.5 MG/2 ML Neb Susp INH SCH ×2 (07:51→17:41)
[2020-03-06] MEDS: LEVOTHYROXINE 50 MCG PO SCH (08:42)
[2020-03-06] MEDS: THEOPHYLLINE 400 MG PO SCH (08:43)
[2020-03-06] MEDS: Fluticasone Propionate Nasal Spray 16 GM Bottle NASBOTH SCH ×2 (08:43→21:08)
[2020-03-06] MEDS: Tiotropium Inhaler 18 MCG Inhalation Powder Cap Kit of 5 INH SCH (08:43)
[2020-03-06] MEDS: Losartan 50 MG Tab PO SCH (08:44)
[2020-03-06] MEDS: Furosemide 20 MG Tab PO SCH (08:45)
[2020-03-06] MEDS: Metoprolol Tartrate 25 MG Tab PO SCH ×2 (08:45→21:10)
[2020-03-06] MEDS: Multivitamins,Therapeutic Tab PO SCH (08:45)
[2020-03-06] MEDS: predniSONE 5 MG Tab PO SCH (08:45)
[2020-03-06] MEDS: POTASSIUM 99 MG PO SCH (08:46)
[2020-03-06] MEDS: OMEGA PO SCH (08:46)
[2020-03-06] MEDS: FATTY ACIDS PO SCH (08:46)
[2020-03-06] MEDS: FISH OIL PO SCH (08:46)
[2020-03-06] MEDS: Acetaminophen 500 MG Tab PO PRN ×2 (15:25→21:13)
[2020-03-06] MEDS: Pantoprazole 40 MG Tab.CR PO SCH (16:26)
[2020-03-06] MEDS ORDERED: Menthol/Methyl Salicylate 85 GM Tube TOP PRN (20:09)
[2020-03-06] MEDS: traZODone 50 MG Tab PO SCH (21:12)
[2020-03-07] MEDS: LEVOTHYROXINE 50 MCG PO SCH (07:13)
[2020-03-07] MEDS: metFORMIN 500 MG Tab PO SCH (07:14)
[2020-03-07] MEDS: Calcium Carbonate/Vitamin D3 1250 MG-200 Unit Tab PO SCH (07:14)
[2020-03-07] MEDS: Sucralfate 1 GM Tab PO SCH ×4 (07:15→20:32)
[2020-03-07] MEDS: Budesonide 0.5 MG/2 ML Neb Susp INH SCH ×2 (07:54→18:07)
[2020-03-07] MEDS: FORMOTEROL FUMARATE INH SCH ×2 (07:55→18:07)
[2020-03-07] MEDS: Metoprolol Tartrate 25 MG Tab PO SCH ×2 (08:13→20:32)
[2020-03-07] MEDS: predniSONE 5 MG Tab PO SCH (08:13)
[2020-03-07] MEDS: Multivitamins,Therapeutic Tab PO SCH (08:13)
[2020-03-07] MEDS: Furosemide 20 MG Tab PO SCH (08:14)
[2020-03-07] MEDS: Losartan 50 MG Tab PO SCH (08:14)
[2020-03-07] MEDS: Fluticasone Propionate Nasal Spray 16 GM Bottle NASBOTH SCH ×2 (08:15→21:49)
[2020-03-07] MEDS: FISH OIL PO SCH (08:16)
[2020-03-07] MEDS: OMEGA PO SCH (08:16)
[2020-03-07] MEDS: FATTY ACIDS PO SCH (08:16)
[2020-03-07] MEDS: POTASSIUM 99 MG PO SCH (08:17)
[2020-03-07] MEDS: THEOPHYLLINE 400 MG PO SCH (08:17)
[2020-03-07] MEDS: Tiotropium Inhaler 18 MCG Inhalation Powder Cap Kit of 5 INH SCH (08:18)
[2020-03-07] MEDS ORDERED: Polyethylene Glycol 3350 Powder 17 GM Packet PO PRN (10:10)
[2020-03-07] MEDS: Clopidogrel 75 MG Tab PO SCH (14:40)
[2020-03-07] MEDS: Pantoprazole 40 MG Tab.CR PO SCH (18:07)
[2020-03-07] MEDS: traZODone 50 MG Tab PO SCH (20:31)
[2020-03-07] MEDS: Acetaminophen 500 MG Tab PO PRN (20:32)
[2020-03-08] MEDS: Sucralfate 1 GM Tab PO SCH ×4 (06:36→20:31)
[2020-03-08] MEDS: LEVOTHYROXINE 50 MCG PO SCH (06:36)
[2020-03-08] MEDS: FORMOTEROL FUMARATE INH SCH ×2 (07:39→17:48)
[2020-03-08] MEDS: Budesonide 0.5 MG/2 ML Neb Susp INH SCH ×2 (07:39→17:48)
[2020-03-08] MEDS: Calcium Carbonate/Vitamin D3 1250 MG-200 Unit Tab PO SCH (08:47)
[2020-03-08] MEDS: metFORMIN 500 MG Tab PO SCH (08:48)
[2020-03-08] MEDS: Metoprolol Tartrate 25 MG Tab PO SCH ×2 (08:48→20:31)
[2020-03-08] MEDS: Losartan 50 MG Tab PO SCH (08:48)
[2020-03-08] MEDS: FISH OIL PO SCH (08:49)
[2020-03-08] MEDS: Multivitamins,Therapeutic Tab PO SCH (08:49)
[2020-03-08] MEDS: Furosemide 20 MG Tab PO SCH (08:49)
[2020-03-08] MEDS: FATTY ACIDS PO SCH (08:49)
[2020-03-08] MEDS: POTASSIUM 99 MG PO SCH (08:49)
[2020-03-08] MEDS: OMEGA PO SCH (08:49)
[2020-03-08] MEDS: THEOPHYLLINE 400 MG PO SCH (08:50)
[2020-03-08] MEDS: Fluticasone Propionate Nasal Spray 16 GM Bottle NASBOTH SCH ×2 (08:50→20:30)
[2020-03-08] MEDS: Tiotropium Inhaler 18 MCG Inhalation Powder Cap Kit of 5 INH SCH (08:51)
[2020-03-08] MEDS: Pantoprazole 40 MG Tab.CR PO SCH (16:29)
[2020-03-08] MEDS: Acetaminophen 500 MG Tab PO PRN (20:33)
[2020-03-08] MEDS: traZODone 50 MG Tab PO SCH (20:34)
[2020-03-09] MEDS: LEVOTHYROXINE 50 MCG PO SCH (06:05)
[2020-03-09] MEDS: FORMOTEROL FUMARATE INH SCH ×2 (07:27→18:07)
[2020-03-09] MEDS: Budesonide 0.5 MG/2 ML Neb Susp INH SCH ×2 (07:28→18:07)
[2020-03-09] MEDS: Sucralfate 1 GM Tab PO SCH ×4 (08:55→20:24)
[2020-03-09] MEDS: Calcium Carbonate/Vitamin D3 1250 MG-200 Unit Tab PO SCH (08:55)
[2020-03-09] MEDS: Multivitamins,Therapeutic Tab PO SCH (08:55)
[2020-03-09] MEDS: metFORMIN 500 MG Tab PO SCH (08:55)
[2020-03-09] MEDS: Furosemide 20 MG Tab PO SCH (08:55)
[2020-03-09] MEDS: FISH OIL PO SCH (08:56)
[2020-03-09] MEDS: FATTY ACIDS PO SCH (08:56)
[2020-03-09] MEDS: Metoprolol Tartrate 25 MG Tab PO SCH ×2 (08:56→20:24)
[2020-03-09] MEDS: Fluticasone Propionate Nasal Spray 16 GM Bottle NASBOTH SCH ×2 (08:56→20:22)
[2020-03-09] MEDS: OMEGA PO SCH (08:56)
[2020-03-09] MEDS: Losartan 50 MG Tab PO SCH (08:56)
[2020-03-09] MEDS: THEOPHYLLINE 400 MG PO SCH (08:57)
[2020-03-09] MEDS: POTASSIUM 99 MG PO SCH (08:57)
[2020-03-09] MEDS: Tiotropium Inhaler 18 MCG Inhalation Powder Cap Kit of 5 INH SCH (08:57)
[2020-03-09] MEDS: Clopidogrel 75 MG Tab PO SCH (14:52)
[2020-03-09] MEDS: Pantoprazole 40 MG Tab.CR PO SCH (17:03)
[2020-03-09] MEDS: Acetaminophen 500 MG Tab PO PRN (20:23)
[2020-03-09] MEDS: traZODone 50 MG Tab PO SCH (20:24)
[2020-03-10] MEDS: LEVOTHYROXINE 50 MCG PO SCH (05:58)
[2020-03-10] MEDS: Budesonide 0.5 MG/2 ML Neb Susp INH SCH ×2 (07:39→17:57)
[2020-03-10] MEDS: FORMOTEROL FUMARATE INH SCH ×2 (07:40→17:57)
[2020-03-10] MEDS: Albuterol/Ipratropium 3.0-0.5 MG/3 ML Neb Soln INH PRN (07:40)
[2020-03-10] MEDS: Multivitamins,Therapeutic Tab PO SCH (08:57)
[2020-03-10] MEDS: Furosemide 20 MG Tab PO SCH (08:57)
[2020-03-10] MEDS: Sucralfate 1 GM Tab PO SCH ×4 (08:57→21:14)
[2020-03-10] MEDS: Metoprolol Tartrate 25 MG Tab PO SCH ×2 (08:57→21:14)
[2020-03-10] MEDS: Calcium Carbonate/Vitamin D3 1250 MG-200 Unit Tab PO SCH (08:58)
[2020-03-10] MEDS: metFORMIN 500 MG Tab PO SCH (08:58)
[2020-03-10] MEDS: Losartan 50 MG Tab PO SCH (08:58)
[2020-03-10] MEDS: POTASSIUM 99 MG PO SCH (09:01)
[2020-03-10] MEDS: OMEGA PO SCH (09:01)
[2020-03-10] MEDS: FATTY ACIDS PO SCH (09:01)
[2020-03-10] MEDS: FISH OIL PO SCH (09:01)
[2020-03-10] MEDS: THEOPHYLLINE 400 MG PO SCH (09:02)
[2020-03-10] MEDS: Fluticasone Propionate Nasal Spray 16 GM Bottle NASBOTH SCH ×2 (09:02→21:15)
[2020-03-10] MEDS: Tiotropium Inhaler 18 MCG Inhalation Powder Cap Kit of 5 INH SCH (09:09)
[2020-03-10] MEDS: Pantoprazole 40 MG Tab.CR PO SCH (17:56)
[2020-03-10] MEDS: Acetaminophen 500 MG Tab PO PRN (19:57)
[2020-03-10] MEDS: traZODone 50 MG Tab PO SCH (21:15)
[2020-03-11] MEDS: LEVOTHYROXINE 50 MCG PO SCH (06:11)
[2020-03-11] MEDS: FORMOTEROL FUMARATE INH SCH (07:47)
[2020-03-11] MEDS: Budesonide 0.5 MG/2 ML Neb Susp INH SCH (07:48)
[2020-03-11] MEDS: Calcium Carbonate/Vitamin D3 1250 MG-200 Unit Tab PO SCH (07:57)
[2020-03-11] MEDS: metFORMIN 500 MG Tab PO SCH (07:58)
[2020-03-11] MEDS: Sucralfate 1 GM Tab PO SCH ×2 (07:58→11:40)
[2020-03-11] MEDS: Metoprolol Tartrate 25 MG Tab PO SCH (07:59)
[2020-03-11] MEDS: Tiotropium Inhaler 18 MCG Inhalation Powder Cap Kit of 5 INH SCH (07:59)
[2020-03-11] MEDS: Losartan 50 MG Tab PO SCH (07:59)
[2020-03-11] MEDS: Multivitamins,Therapeutic Tab PO SCH (08:00)
[2020-03-11] MEDS: Furosemide 20 MG Tab PO SCH (08:00)
[2020-03-11] MEDS: THEOPHYLLINE 400 MG PO SCH (08:01)
[2020-03-11] MEDS: FATTY ACIDS PO SCH (08:02)
[2020-03-11] MEDS: FISH OIL PO SCH (08:02)
[2020-03-11] MEDS: OMEGA PO SCH (08:02)
[2020-03-11] MEDS: POTASSIUM 99 MG PO SCH (08:02)
[2020-03-11 08:03] VITALS: BP 137/52; PULSE 87
[2020-03-11] MEDS: Fluticasone Propionate Nasal Spray 16 GM Bottle NASBOTH SCH (08:03)
--- NOTE | 2020-03-11 09:22 | PCM.DCSUM1 ---
Discharge Summary - Hospital Course Free Text/Narrative:: Mrs. Elias an 79year old patient with a history of COPD, DMT2, CAD, and Hypertension who presented to [facility] with SOB. COVID was negative Her troponin was elevated on admit. She was treated for COPD exacerbation, pneumonia, and CHF. She was on a Bipap and then transitioned to a high flow nasal cannula mask and eventually to NC. Echo showed an EF of 60-65%, diastolic dysfunction, and severe RVH. She went into ARF which did eventually resolve. Cardiology was consulted but she was unable to have an angiogram due to her poor respiratory status. She had melena stools and epigastric pain for which GI was consulted. An EGD was contemplated but couldn't be done due to her poor respiratory status. Hemoglobin has remained stable. Patient apparently refused further evaluation for GIB. Her symptoms improved. PT worked with patient and recommended discharge to [facility] for PT/OT. She was discharged to [facility] to continue PT/OT. Patient tolerated therapies and is now independent in her room. She declined home health services. She is being discharged home with family support. HPI Initial Comments: Mrs. Elias an 79year old patient with a history of COPD, DMT2, CAD, and Hypertension who presented to [facility] with SOB. COVID was negative Her troponin was elevated on admit. She was treated for COPD exacerbation, pneumonia, and CHF. She was on a Bipap and then transitioned to a high flow nasal cannula mask and eventually to NC. Echo showed an EF of 60-65%, diastolic dysfunction, and severe RVH. She went into ARF which did eventually resolve. Cardiology was consulted but she was unable to have an angiogram due to her poor respiratory status. She had melena stools and epigastric pain for which GI was consulted. An EGD was contemplated but couldn't be done due to her poor respiratory status. Hemoglobin has remained stable. Patient apparently refused further evaluation for GIB. Her symptoms improved. PT worked with patient and recommended discharge to [facility] for PT/OT. She was discharged to [facility] to continue PT/OT. At bedside evaluation, patient was seen lying in bed in ni acute distress. She denies chest pain, SOB, fever, chills. Currently on 2 L of oxygen via [place]. Diagnosis: Stroke: No - Discharge Data Discharge Date: 03/11/20 Discharge Disposition: Home, Self-Care 01 Condition: Good - Referral to Home Health Primary Care Physician: Craig Espinal MD - Patient Summary/Data Consults: Consultations 02/28/20 13:39 OT Evaluation and Treatment [CONS] Routine PT Evaluation and Treatment [CONS] Routine - Discharge Plan *PRESCRIPTION DRUG MONITORING PROGRAM REVIEWED*: No *COPY OF PRESCRIPTION DRUG MONITORING REPORT IN PATIENT ALLAN: No Home Medications: Home Meds Acetaminophen [Tylenol Extra Strength] 2 tab PO Q6H PRN 10/22/14 [History] Budesonide [Pulmicort] 2 ml INH BID 10/22/14 [History] Fluticasone Propionate [Flonase] 1 spray NASBOTH BID 10/22/14 [History] Furosemide [Lasix] 20 mg PO DAILY 10/22/14 [History] Ipratropium/Albuterol Sulfate [Iprat-Albut 0.5-3(2.5) MG/3 ML] 3 ml INH Q6HR PRN 10/22/14 [History] Losartan [Cozaar] 100 mg PO DAILY 10/22/14 [History] Multivitamin [Multi-Vitamin Daily] 1 tab PO DAILY 10/22/14 [History] Omeprazole [Prilosec] 20 mg PO DAILY 10/22/14 [History] traZODone 50 mg PO BEDTIME 10/22/14 [History] Calcium Carbonate/Vitamin D3 [Calcium 600 + Vit D Tablet] 1 mg PO DAILY [History] Levothyroxine [Synthroid] 50 mcg PO DAILY 12/09/15 [History] Fish Oil/Urich-3 Fatty Acids [Fish Oil 1,000 MG] 2 gm PO DAILY 03/16/18 [History ] Formoterol Fumarate [Perforomist] 2 ml INH BID 03/16/18 [History] Potassium 99 mg PO DAILY 03/16/18 [History] Fexofenadine [Evie] 60 mg PO DAILY 02/13/20 [History] Theophylline [Niall-24] 200 mg PO DAILY 02/13/20 [History] Albuterol [Ventolin HFA] 2 oz PO Q4H PRN 02/28/20 [History] Amoxicillin/Clavulanate K [Augmentin 875-125 MG] 1 tab PO BID MDD x 2 doses only 02/28/20 [History] Clopidogrel [Plavix] 75 mg PO .[id number] MDD x 30 days- end day 03/29/20 02/28/20 [ History] Metoprolol Tartrate 25 mg PO BID 02/28/20 [History] Non-Formulary Medication [NF Drug] 1 puff INH DAILY 02/28/20 [History] Nystatin 5 ml PO QID MDD x 5 days from 02/28/20 02/28/20 [History] Sucralfate 1 gm PO QIDACANDBED MDD x14 days from 02/28/20 02/28/20 [History] metFORMIN [Glucophage] 500 mg PO WITHBREAKFAST 02/28/20 [History] predniSONE 5 mg PO .TAPERSEELABELINSTRU MDD x 9 days from 02/2702/28/20 [History] Referrals: Craig Espinal MD [Primary Care Provider] - - Discharge Summary/Plan Comment DC Time >30 min.: Yes - General Info Date of Service: 03/11/20 Admission Dx/Problem (Free Text: Admission Diagnosis/Problem Admission Diagnosis/Problem Weakness Subjective Update: No acute events overnight. Reports slight soreness of throat but improved after she ate breakfast. Denies fevers, chills, chest pain, shortness of breath , n/v/d/c, or any acute symptoms. - Patient Data Vitals - Most Recent: Last Vital Signs Temp 99.9 F 03/11/20 08:00 Pulse 87 03/11/20 08:00 Resp 17 03/11/20 08:00 BP 137/52 L 03/11/20 08:00 Pulse Ox 96 03/11/20 08:00 Weight - Most Recent: 136 lb 2 oz I&O - Last 24 hours: Intake & Output 03/10/20 03/11/20 03/11/20 22:59 06:59 14:59 Intake Total 350 Balance 350 Lab Results - Last 24 hrs: Laboratory Results - last 24 hr 03/10/20 03/10/20 03/10/20 Range/Units 11:43 16:50 21:05 POC Glucose 97 166 H 97 (83-110) mg/dl 03/11/20 Range/Units 07:56 POC Glucose 101 (83-110) mg/dl Med Orders - Current: Current Medications Acetaminophen (Tylenol Extra Strength) 1,000 mg PO Q6H PRN PRN Reason: Pain (mild 1-3) Last Admin: 03/10/20 19:57 Dose: 1,000 mg Albuterol/Ipratropium (Duoneb 3.0-0.5 Mg/3 Ml) 3 ml INH Q6HR PRN PRN Reason: Wheezing Last Admin: 03/10/20 07:40 Dose: 3 ml Budesonide (Pulmicort) 0.5 mg INH BIDRT [facility] Last Admin: 03/11/20 07:48 Dose: 0.5 mg Calcium Carbonate (Calcium Carbonate/Vitamin D 1250 Mg-200 Unit) 1 tab PO WITHBREAKFAST [facility] Last Admin: 03/11/20 07:57 Dose: 1 tab Clopidogrel Bisulfate (Plavix) 75 mg PO Q48H [facility] Stop: 03/27/20 15:01 Last Admin: 03/09/20 14:52 Dose: 75 mg Docusate Sodium (Colace) 100 mg PO BID PRN PRN Reason: Constipation Fluticasone Propionate (Flonase) 0 gm NASBOTH BID [facility] Last Admin: 03/11/20 08:03 Dose: 2 spray Furosemide (Lasix) 20 mg PO DAILY [facility] Last Admin: 03/11/20 08:00 Dose: 20 mg Levothyroxine Sodium (Synthroid) 50 mcg PO ACBREAKFAST [facility] Last Admin: 03/11/20 06:11 Dose: 50 mcg Loperamide HCl (Imodium) 2 mg PO Q4H PRN PRN Reason: Diarrhea Last Admin: 02/29/20 14:51 Dose: 2 mg Losartan Potassium (Cozaar) 100 mg PO DAILY [facility] Last Admin: 03/11/20 07:59 Dose: 100 mg Magnesium Hydroxide (Milk Of Magnesia) 30 ml PO Q12H PRN PRN Reason: Constipation Metformin HCl (Glucophage) 500 mg PO WITHBREAKFAST [facility] Last Admin: 03/11/20 07:58 Dose: 500 mg Methyl Salicylate (Icy Hot Cream) 0 gm TOP Q4H PRN PRN Reason: Pain (mild 1-3) Metoprolol Tartrate (Lopressor) 25 mg PO BID [facility] Last Admin: 03/11/20 07:59 Dose: 25 mg Multivitamins (Thera) 1 each PO DAILY [facility] Last Admin: 03/11/20 08:00 Dose: 1 each Formoterol Fumarate [Perforomist] 2 Ml Neb 2 ml INH BIDRT [facility] Last Admin: 03/11/20 07:47 Dose: 2 ml Pantoprazole Sodium (Protonix) 40 mg PO ACDINNER [facility] Last Admin: 03/10/20 17:56 Dose: 40 mg Albuterol [Ventolin] 90 Mcg Inhaler Own Med 0 each INH Q4H PRN PRN Reason: Wheezing Fish Oil/Urich-3 Fatty Acids [Fish Oil 1,000 Mg] Cap Own Med 0 each PO DAILY [facility] Last Admin: 03/11/20 08:02 Dose: 1 each Potassium 99 Mg Tab (Own Med) 0 each PO DAILY [facility] Last Admin: 03/11/20 08:02 Dose: 1 each Theophylline 400 Mg (Er Tab Own Med) 0 each PO DAILY [facility] Last Admin: 03/11/20 08:01 Dose: 1 each Polyethylene Glycol (Miralax) 17 gm PO BEDTIME PRN PRN Reason: Constipation Sucralfate (Carafate) 1 gm PO QIDACANDBED [facility] Stop: 03/13/20 11:01 Last Admin: 03/11/20 07:58 Dose: 1 gm Tiotropium [place] (Spiriva Handihaler) 18 mcg INH DAILY [facility] Last Admin: 03/11/20 07:59 Dose: 18 mcg Trazodone HCl (Trazodone) 50 mg PO BEDTIME [facility] Last Admin: 03/10/20 21:15 Dose: 50 mg Discontinued Medications Amoxicillin/Clavulanate Potassium (Augmentin 875 Mg/125 Mg) 1 tab PO BID [facility] Stop: 02/29/20 09:01 Last Admin: 02/29/20 08:31 Dose: 1 tab Enoxaparin Sodium (Lovenox) 40 mg SUBCUT DAILY [facility] Levothyroxine Sodium (Synthroid) 50 mcg PO ACBREAKFAST [facility] Last Admin: 03/02/20 06:00 Dose: 50 mcg Nystatin (Mycostatin) 5 ml PO QID [facility] Stop: 03/03/20 21:01 Last Admin: 03/03/20 20:25 Dose: 5 ml Prednisone (Prednisone) 15 mg PO DAILY [facility] Stop: 03/01/20 09:01 Last Admin: 03/01/20 08:59 Dose: 15 mg Prednisone (Prednisone) 10 mg PO DAILY [facility] Stop: 03/04/20 09:01 Last Admin: 03/04/20 08:52 Dose: 10 mg Prednisone (Prednisone) 5 mg PO DAILY [facility] Stop: 03/07/20 09:01 Last Admin: 03/07/20 08:13 Dose: 5 mg Tiotropium [place] (Spiriva Handihaler) [facility] Admin: 03/02/20 08:53 Dose: 18 mcg - Exam General: Reports: Alert, Oriented, Cooperative, No Acute Distress HEENT: Reports: Pupils Equal, Pupils Reactive, Mucous Membr. Moist/[place] (No tonsillar erythema or exudates. ) Neck: Reports: Supple, Trachea Midline Lungs: Reports: Clear to Auscultation, Normal Respiratory Effort Cardiovascular: Reports: Regular Rate, Regular Rhythm, No Murmurs GI/Abdominal Exam: Normal Bowel Sounds, Soft, Non-Tender, No Distention Extremities: Normal Inspection, Non-Tender, No Pedal Edema Skin: Reports: Warm, Dry, Intact Neurological: Reports: No New Focal Deficit Psy/Mental Status: Reports: Alert, Normal Affect, Normal Mood
== END 2020-03-11 13:00 | disposition home or self-care (01) | DRG 947 ==
LOC: DL.MS 12:23 → UNDOADMIN 12:23 → DL.MS 13:40
PROVIDERS: ADMIT Student in an Organized Health Care Education/Training Program; ATTEND Internal Medicine
DX: R53.1 Weakness (principal); J96.01 Acute respiratory failure with hypoxia; J96.02 Acute respiratory failure with hypercapnia; J18.9 Pneumonia, unspecified organism; I21.4 Non-ST elevation (NSTEMI) myocardial infarction; J44.0 Chronic obstructive pulmonary disease with (acute) lower respiratory infection; J44.1 Chronic obstructive pulmonary disease with (acute) exacerbation; Z66 Do not resuscitate; I11.0 Hypertensive heart disease with heart failure; I50.9 Heart failure, unspecified; E78.00 Pure hypercholesterolemia, unspecified; K21.9 Gastro-esophageal reflux disease without esophagitis; E03.9 Hypothyroidism, unspecified; E11.9 Type 2 diabetes mellitus without complications; M19.90 Unspecified osteoarthritis, unspecified site; Z28.82 Immunization not carried out because of caregiver refusal; Z87.891 Personal history of nicotine dependence; Z79.84 Long term (current) use of oral hypoglycemic drugs; Z79.52 Long term (current) use of systemic steroids; Z79.890 Hormone replacement therapy; Z88.1 Allergy status to other antibiotic agents; Z88.8 Allergy status to other drugs, medicaments and biological substances
CPT/HCPCS: 36415; 82962; 84484; 94640; 97110-GO; 97110-GP; 97116-GP; 97162-GP; 97166-GO; 97530-GO; 97535-GO; A9270-GY; J7512; J7620-GY

== ENCOUNTER 2020-03-11 15:28 | Observation (INO) | payer MEDICARE, BC, MEDICAID ==
[2020-03-11 17:21] LABS: ANION GAP 11.4 mEq/L (7-13); CHLORIDE,CL 101 mmol/L (98-107); SODIUM,NA 140 mmol/L (136-145)
[2020-03-11] MEDS ORDERED: 50% Dextrose in Water 50 ML Syringe IVPUSH PRN (17:40)
[2020-03-11] MEDS ORDERED: Ondansetron 4 MG/2 ML SDV IVPUSH PRN (17:40)
[2020-03-11] MEDS ORDERED: Ondansetron 4 MG Tab.DIS PO PRN (17:40)
[2020-03-11] MEDS ORDERED: Glucagon,Human Recombinant 1 MG Vial IM PRN (17:40)
[2020-03-11] MEDS ORDERED: Albuterol/Ipratropium 3.0-0.5 MG/3 ML Neb Soln INH PRN (17:43)
[2020-03-11] MEDS ORDERED: Albuterol 6.7 GM Inhaler INH PRN (17:43)
[2020-03-11] MEDS ORDERED: Potassium Chloride 10 MEQ Tab.ER PO ONE (17:52)
--- NOTE | 2020-03-11 18:02 | PCM.HP ---
H&P History of Present Illness - General Date of Service: 03/11/20 Admit Problem/Dx: Admission Diagnosis/Problem Admission Diagnosis/Problem Weakness Source of Information: Patient, Old Records, Provider - History of Present Illness Initial Comments - Free Text/Narative: Mrs. Elias an 79year old patient with a history of COPD, DMT2, CAD, and Hypertension who presented to [facility] with SOB. COVID was negative Her troponin was elevated on admit. She was treated for COPD exacerbation, pneumonia, and CHF. She was on a Bipap and then transitioned to a high flow nasal cannula mask and eventually to NC. Echo showed an EF of 60-65%, diastolic dysfunction, and severe RVH. She went into ARF which did eventually resolve. Cardiology was consulted but she was unable to have an angiogram due to her poor respiratory status. She had melena stools and epigastric pain for which GI was consulted. An EGD was contemplated but couldn't be done due to her poor respiratory status. Hemoglobin has remained stable. Patient apparently refused further evaluation for GIB. Her symptoms improved. PT worked with patient and recommended [facility] to [facility] for PT/OT. She was discharged to [facility] to continue PT/OT. Patient tolerated therapies and is now independent in her room. She declined home health services. She is being discharged home with family support. Patient returned to the ED this evening with reports of weakness. States that her significant other was helping her to go to the bathroom. States she was ambulating without a walker. Was unable to go up a step that goes to her bathroom. Let herself down on the floor and her heart was pounding. Denies head trauma of LOC. Denies chest pain, SOB, n/v/d/c, f/c, dysuria, hematuria, or any new symptoms. - Related Data Allergies/Adverse Reactions: Allergies Allergy/AdvReac Type Severity Reaction Status Date / Time cefdinir [From Omnicef] Allergy Cannot Verified 03/11/20 17:41 Remember escitalopram oxalate Allergy Cannot Verified 03/11/20 17:41 [From Lexapro] Remember hydrochlorothiazide Allergy Cannot Verified 03/11/20 17:41 Remember lisinopril Allergy Cannot Verified 03/11/20 17:41 Remember oxymetazoline HCl Allergy Cannot Verified 03/11/20 17:41 [From Afrin (oxymetazoline)] Remember paroxetine Allergy Cannot Verified 03/11/20 17:41 Remember sertraline Allergy Cannot Verified 03/11/20 17:41 Remember venlafaxine Allergy Cannot Verified 03/11/20 17:41 Remember Home Medications: Home Meds Acetaminophen [Tylenol Extra Strength] 2 tab PO Q6H PRN 10/22/14 [History] Budesonide [Pulmicort] 2 ml INH BID 10/22/14 [History] Fluticasone Propionate [Flonase] 1 spray NASBOTH BID 10/22/14 [History] Furosemide [Lasix] 20 mg PO DAILY 10/22/14 [History] Ipratropium/Albuterol Sulfate [Iprat-Albut 0.5-3(2.5) MG/3 ML] 3 ml INH Q6HR PRN 10/22/14 [History] Losartan [Cozaar] 100 mg PO DAILY 10/22/14 [History] Multivitamin [Multi-Vitamin Daily] 1 tab PO DAILY 10/22/14 [History] Omeprazole [Prilosec] 20 mg PO DAILY 10/22/14 [History] traZODone 50 mg PO BEDTIME 10/22/14 [History] Calcium Carbonate/Vitamin D3 [Calcium 600 + Vit D Tablet] 1 mg PO DAILY [History] Levothyroxine [Synthroid] 50 mcg PO DAILY 12/09/15 [History] Fish Oil/[place]-3 Fatty Acids [Fish Oil 1,000 MG] 2 gm PO DAILY 03/16/18 [History ] Formoterol Fumarate [Perforomist] 2 ml INH BID 03/16/18 [History] Potassium 99 mg PO DAILY 03/16/18 [History] Fexofenadine [Evie] 60 mg PO DAILY 02/13/20 [History] Theophylline [Niall-24] 200 mg PO DAILY 02/13/20 [History] Albuterol [Ventolin HFA] 2 oz PO Q4H PRN 02/28/20 [History] Amoxicillin/Clavulanate K [Augmentin 875-125 MG] 1 tab PO BID MDD x 2 doses only 02/28/20 [History] Clopidogrel [Plavix] 75 mg PO .[id number] MDD x 30 days- end day 03/29/20 02/28/20 [ History] Metoprolol Tartrate 25 mg PO BID 02/28/20 [History] Non-Formulary Medication [NF Drug] 1 puff INH DAILY 02/28/20 [History] Nystatin 5 ml PO QID MDD x 5 days from 02/28/20 02/28/20 [History] Sucralfate 1 gm PO QIDACANDBED MDD x14 days from 02/28/20 02/28/20 [History] metFORMIN [Glucophage] 500 mg PO WITHBREAKFAST 02/28/20 [History] predniSONE 5 mg PO .TAPERSEELABELINSTRU MDD x 9 days from 02/2702/28/20 [History] Past Medical History HEENT History: Reports: Allergic Rhinitis, Cataract, Impaired Vision, Other ( See Below) Other HEENT History: GLasses Cardiovascular History: Reports: High Cholesterol, Hypertension, Other (See Below) Other Cardiovascular History: NSTEMI 2019 Respiratory History: Reports: Asthma, COPD Gastrointestinal History: Reports: GERD Genitourinary History: Reports: Other (See Below) Other Genitourinary History: Stress incontinence 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: Musculoskeletal History: Reports: Back Pain, Chronic, Osteoarthritis Neurological History: Reports: None Psychiatric History: Reports: Anxiety Endocrine/Metabolic History: Reports: Diabetes, Type II, Hypothyroidism Hematologic History: Reports: None Immunologic History: Reports: None Oncologic (Cancer) History: Reports: None Dermatologic History: Reports: None - Infectious Disease History Infectious Disease History: Reports: None - Past Surgical History Head Surgeries/Procedures: Reports: None Female Surgical History: Reports: Hysterectomy Social & Family History - Family History Family Medical History: Noncontributory - Tobacco Use Smoking Status *Q: Former Smoker Used Tobacco, but Quit: Yes Month/Year Tobacco Last Used: ? - Caffeine Use Caffeine Use: Reports: Coffee - Recreational Drug Use Recreational Drug Use: No - Living Situation & Occupation Living situation: Reports: , with Family Occupation: Retired H&P Review of Systems - Review of Systems: Review Of Systems: Comprehensive ROS is negative, except as noted in HPI. Exam - Exam Exam: See Below - Vital Signs Vital Signs: Last Vital Signs Temp 98.4 F 03/11/20 15:39 Pulse 100 03/11/20 15:39 Resp 16 03/11/20 15:39 BP 151/77 H 03/11/20 15:39 Pulse Ox 96 03/11/20 15:39 Weight: 137 lb 12.8 oz - Exam General: Alert, Oriented HEENT: Conjunctiva Clear, Mucosa Moist & [place] Neck: Supple, Trachea Midline Lungs: Clear to Auscultation, Normal Respiratory Effort Cardiovascular: Regular Rate, Regular Rhythm Extremities: Normal Inspection, Non-Tender, No Pedal Edema Skin: Warm, Dry, Intact Neuro Extensive - Mental Status: Alert, Oriented x3, Normal Mood/Affect, Normal Cognition Psychiatric: Alert, Normal Affect, Normal Mood - Patient Data Lab Results Last 24 hrs: Laboratory Results - last 24 hr 03/11/20 03/11/20 Range/Units 16:55 16:55 WBC 10.8 H (5.0-10.0) 10^3/uL RBC 3.54 L (4.2-5.4) 10^6/uL Hgb 10.6 L D (12.0-16.0) g/dL Hct 34.0 L (37.0-47.0) % MCV 96.0 D (80-100) fL MCH 29.9 (27.0-34.0) pg MCHC 31.2 L (33.0-35.0) g/dL Plt Count 219 (150-450) 10^3/uL Neut % (Auto) 82.7 H (42.2-75.2) % Lymph % (Auto) 6.3 L (20.5-50.1) % [place] % (Auto) 8.6 H (2-8) % Eos % (Auto) 2.2 (1.0-3.0) % Baso % (Auto) 0.2 (0.0-1.0) % Sodium 140 (136-145) mmol/L Potassium 3.4 L (3.5-5.1) mmol/L Chloride 101 (98-107) mmol/L Carbon Dioxide 31 (21-32) mmol/L Anion Gap 11.4 (7-13) mEq/L BUN 13 (7-18) mg/dL Creatinine 0.89 (0.55-1.02) mg/dL Est Cr Clr Drug Dosing TNP Estimated GFR (MDRD) > 60 BUN/Creatinine Ratio 14.6 (No establ ref range) Glucose 133 H (74-99) mg/dL Calcium 9.4 (8.5-10.1) mg/dL Total Bilirubin 0.2 (0.2-1.0) mg/dL AST 19 (15-37) U/L ALT 21 (14-59) U/L Alkaline Phosphatase 55 (46-116) U/L Total Protein 6.5 (6.4-8.2) g/dL Albumin 3.1 L (3.4-5.0) g/dL Globulin 3.4 Albumin/Globulin Ratio 0.91 Result Diagrams: 03/11/20 16:55 03/11/20 16:55 - Problem List (1) COPD (chronic obstructive pulmonary disease) SNOMED Code(s): 78660937 ICD Code: J44.9 - CHRONIC OBSTRUCTIVE PULMONARY DISEASE, UNSPECIFIED Status : Acute Current Visit: Yes (2) Diabetes SNOMED Code(s): 62593517 ICD Code: E11.9 - TYPE 2 DIABETES MELLITUS WITHOUT COMPLICATIONS Status: Acute Current Visit: No (3) HTN (hypertension) SNOMED Code(s): 31679573 ICD Code: I10 - ESSENTIAL (PRIMARY) HYPERTENSION Status: Acute Current Visit: No (4) Weakness generalized SNOMED Code(s): 45825459 ICD Code: R53.1 - WEAKNESS Status: Acute Current Visit: No Problem List Initiated/Reviewed/Updated: Yes Orders Last 24hrs: Active Orders 24 hr Category Date Time Status Admission Diagnosis [ADT] Stat ADT 03/11/20 16:48 Ordered Patient Status [ADT] Routine ADT 03/11/20 16:48 Active Blood Glucose Check, Bedside [RC] WITHMEALSANDBED Care 03/11/20 17:40 Active Diabetes Education [RC] Click to Edit Care 03/11/20 17:40 Active Notify Provider [RC] PRN Care 03/11/20 17:40 Active Oxygen Therapy [RC] PRN Care 03/11/20 17:40 Active Up With Assistance [RC] ASDIRECTED Care 03/11/20 17:40 Active VTE/DVT Education [RC] PER UNIT ROUTINE Care 03/11/20 17:40 Active Vital Signs [RC] Q4H Care 03/11/20 17:40 Active Consistent Carbohydrate Diet [DIET] Diet 03/11/20 Dinner Active BASIC METABOLIC PANEL,BMP [CHEM] AM Lab 03/12/20 05:11 Ordered Acetaminophen [Tylenol] Med 03/11/20 17:40 Ordered 650 mg PO Q6H PRN Albuterol [Proventil HFA] Med 03/11/20 17:43 Ordered DOSE gm INH Q4H PRN Albuterol/Ipratropium [DuoNeb 3.0-0.5 MG/3 ML] Med 03/11/20 17:43 Ordered 3 ml INH Q6HR PRN Budesonide [Pulmicort] Med 03/11/20 21:00 Ordered 0.5 mg INH BID Calcium Carbonate/Vitamin D3 [Calcium 600 + Vit D Med 03/12/20 09:00 Ordered Tablet] 1 mg PO DAILY Clopidogrel [Plavix] Med 03/11/20 17:45 Ordered 75 mg PO .[id number] Dextrose 50% in Water Med 03/11/20 17:40 Ordered 25 ml IVPUSH ASDIRECTED PRN Fish Oil/[place]-3 Fatty Acids [Fish Oil 1,000 MG] Med 03/12/20 09:00 Ordered 2 gm PO DAILY Fluticasone Propionate [Flonase] Med 03/11/20 21:00 Ordered DOSE gm NASBOTH BID Formoterol Fumarate [Perforomist] Med 03/11/20 21:00 Ordered 2 ml INH BID Furosemide [Lasix] Med 03/12/20 09:00 Ordered 20 mg PO DAILY Glucagon,Human Recombinant [GlucaGen] Med 03/11/20 17:40 Ordered 1 mg IM ONETIME PRN Heparin Sodium Med 03/11/20 22:00 Ordered 5,000 units SUBCUT Q8HR Levothyroxine [Synthroid] Med 03/12/20 09:00 Ordered 50 mcg PO DAILY Losartan [Cozaar] Med 03/12/20 09:00 Ordered 100 mg PO DAILY Metoprolol Tartrate [Lopressor] Med 03/11/20 21:00 Ordered 25 mg PO BID Multivitamin [Multi-Vitamin Daily] Med 03/12/20 09:00 Ordered 1 tab PO DAILY Non-Formulary Medication [NF Drug] Med 03/12/20 09:00 Ordered 1 puff INH DAILY Nystatin Med 03/11/20 21:00 Ordered 5 ml PO QID Omeprazole Med 03/12/20 09:00 Ordered 20 mg PO DAILY Ondansetron [Zofran ODT] Med 03/11/20 17:40 Ordered 4 mg PO Q6H PRN Ondansetron [Zofran] Med 03/11/20 17:40 Ordered 4 mg IVPUSH Q6H PRN Potassium Chloride [Klor-Con 10] Med 03/11/20 17:52 Once 40 meq PO ONETIME ONE Potassium [Potassium] Med 03/12/20 09:00 Ordered 99 mg PO DAILY Resuscitation Status Routine Resus Stat 03/11/20 17:40 Ordered Medication Orders Acetaminophen (Tylenol) 650 mg PO Q6H PRN PRN Reason: Pain Albuterol (Proventil Hfa) gm INH Q4H PRN PRN Reason: Wheezing Albuterol/Ipratropium (Duoneb 3.0-0.5 Mg/3 Ml) 3 ml INH Q6HR PRN PRN Reason: Wheezing Budesonide (Pulmicort) 0.5 mg INH BID BEN Clopidogrel Bisulfate (Plavix) 75 mg PO .[id number] BEN Dextrose/Water (Dextrose 50% In Water) 25 ml IVPUSH ASDIRECTED PRN PRN Reason: Hypoglycemia Fluticasone Propionate (Flonase) gm NASBOTH BID BEN Furosemide (Lasix) 20 mg PO DAILY BEN Glucagon (Glucagen) 1 mg IM ONETIME PRN PRN Reason: Hypoglycemia Heparin Sodium (Porcine) (Heparin Sodium) 5,000 units SUBCUT Q8HR BEN Levothyroxine Sodium (Synthroid) 50 mcg PO DAILY BEN Metoprolol Tartrate (Lopressor) 25 mg PO BID BEN Non-Formulary Medication (Calcium Carbonate/Vitamin D3 [Calcium 600 + Vit D Tablet]) 1 mg PO DAILY BEN Non-Formulary Medication (Fish Oil/[place]-3 Fatty Acids [Fish Oil 1,000 Mg]) 2 gm PO DAILY BEN Non-Formulary Medication (Formoterol Fumarate [Perforomist]) 2 ml INH BID BEN Non-Formulary Medication (Losartan [Cozaar]) 100 mg PO DAILY BEN Non-Formulary Medication (Multivitamin [Multi-Vitamin Daily]) 1 tab PO DAILY BEN Non-Formulary Medication (Non-Formulary Medication [Nf Drug]) 1 puff INH DAILY BNE Non-Formulary Medication (Nystatin) 5 ml PO QID BEN Non-Formulary Medication (Potassium [Potassium]) 99 mg PO DAILY BEN Omeprazole (Omeprazole) 20 mg PO DAILY BEN Ondansetron HCl (Zofran Odt) 4 mg PO Q6H PRN PRN Reason: nausea, able to take PO Ondansetron HCl (Zofran) 4 mg IVPUSH Q6H PRN PRN Reason: Nausea/Vomiting Assessment/Plan Comment:: Generalized weakness: patient discharged home earlier today. Returned to the ED with complaints of weakness and inability to go up stairs. - PT/OT - Fall precautions. #DM II: - Continue metformin - SSI with hypoglycemia protocol. #CAD #HTN: - No acute issues. - Continue home medication. #Hypokalemia: K is 3.4. - Oral KCl replacement - Monitor and replace electrolytes. #COPD: Not in exacerbation - Continue home meds. - Supplemental O2 prn to keep O2 sats between 88-92% #GERD: Prilosec DVT PPx: Lovenox GI PPx: Prilosec Code Status: DNR/DNI
--- NOTE | 2020-03-11 18:12 | EDM.PDOC ---
Scribed by Fern Finn 03/11/201811 for Sadnra Russo NP ED HPI GENERAL MEDICAL PROBLEM - General Chief Complaint: General Stated Complaint: ambulance Time Seen by Provider: 03/11/20 16:50 Source of Information: Reports: Patient, EMS, EMS Notes Reviewed, RN, RN Notes Reviewed History Limitations: Reports: No Limitations, Other - History of Present Illness INITIAL COMMENTS - FREE TEXT/NARRATIVE: Patient presents to ER per [facility] with complaint of weakness. Patient had an DC a few weeks ago. She was admitted to [facility] and then transferred to [facility] in [place] for swing bed. Patient was discharged from swing bed today at 1:00 P.M. Patient states she got home and was unable to ambulate on her own. She states her friend that lives with her is unable to get her up. She lost her balance and was lowered to the floor. No injuries. She did not hit her head. She has shortness of breath at times. No chest pain, fever, chills, nausea, vomiting or diarrhea. Onset: Today Duration: Constant Location: Reports: Generalized Quality: Reports: Ache Severity: Mild Improves with: Reports: None Worsens with: Reports: None Associated Symptoms: Reports: No Other Symptoms - Related Data Allergies Allergy/AdvReac Type Severity Reaction Status Date / Time cefdinir [From Omnicef] Allergy Cannot Verified 03/11/20 17:41 Remember escitalopram oxalate Allergy Cannot Verified 03/11/20 17:41 [From Lexapro] Remember hydrochlorothiazide Allergy Cannot Verified 03/11/20 17:41 Remember lisinopril Allergy Cannot Verified 03/11/20 17:41 Remember oxymetazoline HCl Allergy Cannot Verified 03/11/20 17:41 [From Afrin (oxymetazoline)] Remember paroxetine Allergy Cannot Verified 03/11/20 17:41 Remember sertraline Allergy Cannot Verified 03/11/20 17:41 Remember venlafaxine Allergy Cannot Verified 03/11/20 17:41 Remember Home Meds: Home Meds Acetaminophen [Tylenol Extra Strength] 2 tab PO Q6H PRN 10/22/14 [History] Budesonide [Pulmicort] 2 ml INH BID 10/22/14 [History] Fluticasone Propionate [Flonase] 1 spray NASBOTH BID 10/22/14 [History] Furosemide [Lasix] 20 mg PO DAILY 10/22/14 [History] Ipratropium/Albuterol Sulfate [Iprat-Albut 0.5-3(2.5) MG/3 ML] 3 ml INH Q6HR PRN 10/22/14 [History] Losartan [Cozaar] 100 mg PO DAILY 10/22/14 [History] Multivitamin [Multi-Vitamin Daily] 1 tab PO DAILY 10/22/14 [History] Omeprazole [Prilosec] 20 mg PO DAILY 10/22/14 [History] traZODone 50 mg PO BEDTIME 10/22/14 [History] Calcium Carbonate/Vitamin D3 [Calcium 600 + Vit D Tablet] 1 mg PO DAILY [History] Levothyroxine [Synthroid] 50 mcg PO DAILY 12/09/15 [History] Fish Oil/[place]-3 Fatty Acids [Fish Oil 1,000 MG] 2 gm PO DAILY 03/16/18 [History ] Formoterol Fumarate [Perforomist] 2 ml INH BID 03/16/18 [History] Potassium 99 mg PO DAILY 03/16/18 [History] Fexofenadine [Evie] 60 mg PO DAILY 02/13/20 [History] Theophylline [Niall-24] 200 mg PO DAILY 02/13/20 [History] Albuterol [Ventolin HFA] 2 oz PO Q4H PRN 02/28/20 [History] Amoxicillin/Clavulanate K [Augmentin 875-125 MG] 1 tab PO BID MDD x 2 doses only 02/28/20 [History] Clopidogrel [Plavix] 75 mg PO .[id number] MDD x 30 days- end day 03/29/20 02/28/20 [ History] Metoprolol Tartrate 25 mg PO BID 02/28/20 [History] Non-Formulary Medication [NF Drug] 1 puff INH DAILY 02/28/20 [History] Nystatin 5 ml PO QID MDD x 5 days from 02/28/20 02/28/20 [History] Sucralfate 1 gm PO QIDACANDBED MDD x14 days from 02/28/20 02/28/20 [History] metFORMIN [Glucophage] 500 mg PO WITHBREAKFAST 02/28/20 [History] predniSONE 5 mg PO .TAPERSEELABELINSTRU MDD x 9 days from 02/2702/28/20 [History] Past Medical History HEENT History: Reports: Allergic Rhinitis, Cataract, Impaired Vision, Other ( See Below) Other HEENT History: GLasses Cardiovascular History: Reports: High Cholesterol, Hypertension, Other (See Below) Other Cardiovascular History: NSTEMI 2019 Respiratory History: Reports: Asthma, COPD Gastrointestinal History: Reports: GERD Genitourinary History: Reports: Other (See Below) Other Genitourinary History: Stress incontinence 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: Musculoskeletal History: Reports: Back Pain, Chronic, Osteoarthritis Neurological History: Reports: None Psychiatric History: Reports: Anxiety Endocrine/Metabolic History: Reports: Diabetes, Type II, Hypothyroidism Hematologic History: Reports: None Immunologic History: Reports: None Oncologic (Cancer) History: Reports: None Dermatologic History: Reports: None - Infectious Disease History Infectious Disease History: Reports: None - Past Surgical History Head Surgeries/Procedures: Reports: None Female Surgical History: Reports: Hysterectomy Social & Family History - Family History Family Medical History: Noncontributory - Tobacco Use Smoking Status *Q: Former Smoker Used Tobacco, but Quit: Yes Month/Year Tobacco Last Used: ? - Caffeine Use Caffeine Use: Reports: Coffee - Recreational Drug Use Recreational Drug Use: No - Living Situation & Occupation Living situation: Reports: , with Family Occupation: Retired ED ROS GENERAL - Review of Systems Review Of Systems: Comprehensive ROS is negative, except as noted in HPI. ED EXAM, GENERAL - Physical Exam Exam: See Below Exam Limited By: No Limitations General Appearance: Alert, WD/WN, No Apparent Distress Eye Exam: Bilateral Eye: EOMI, Normal Inspection, PERRL Ears: Other (Hard of hearing) Nose: Normal Inspection, Normal Mucosa, No Blood Throat/Mouth: Normal Inspection, Normal Lips, Normal Teeth, Normal Gums, Normal Oropharynx, Normal Voice, No Airway Compromise Head: Atraumatic, Normocephalic Neck: Normal Inspection, Supple, Non-Tender, Full Range of Motion Respiratory/Chest: Other (diminished fine crackles at the bases. ) Cardiovascular: Normal Peripheral Pulses, Regular Rate, Rhythm, No Edema, No Gallop, No JVD, No Murmur, No Rub GI/Abdominal: Normal Bowel Sounds, Soft, Non-Tender, No Organomegaly, No Distention, No Abnormal Bruit, No Mass (Female) Exam: Deferred Rectal (Female) Exam: Deferred Back Exam: Other (weak. Decreased range of motion.) Extremities: Other (weak. ) Neurological: Alert, Oriented, CN II-XII Intact, Normal Cognition, Normal Gait, Normal Reflexes, No Motor/Sensory Deficits Psychiatric: Normal Affect, Normal Mood Skin Exam: Warm, Dry, Intact, Normal Color, No Rash Lymphatic: No Adenopathy Course - Vital Signs Last Recorded V/S: Last Vital Signs Temp 98.4 F 03/11/20 15:39 Pulse 100 03/11/20 15:39 Resp 16 03/11/20 15:39 BP 151/77 H 03/11/20 15:39 Pulse Ox 97 03/11/20 17:40 - Orders/Labs/Meds Orders: Medication Orders Acetaminophen (Tylenol) 650 mg PO Q6H PRN PRN Reason: Pain Albuterol (Proventil Hfa) 0 gm INH Q4H PRN PRN Reason: Wheezing Albuterol/Ipratropium (Duoneb 3.0-0.5 Mg/3 Ml) 3 ml INH Q6HR PRN PRN Reason: Wheezing Budesonide (Pulmicort) 0.5 mg INH BID B[facility] Calcium Carbonate (Calcium Carbonate/Vitamin D 1250 Mg-200 Unit) 1 tab PO DAILY B[facility] Clopidogrel Bisulfate (Plavix) 75 mg PO Q48H [facility] Dextrose/Water (Dextrose 50% In Water) 25 ml IVPUSH ASDIRECTED PRN PRN Reason: Hypoglycemia Fluticasone Propionate (Flonase) 0 gm NASBOTH BID BEN Furosemide (Lasix) 20 mg PO DAILY [facility] Glucagon (Glucagen) 1 mg IM ONETIME PRN PRN Reason: Hypoglycemia Heparin Sodium (Porcine) (Heparin Sodium) 5,000 units SUBCUT Q8HR [facility] Levothyroxine Sodium (Synthroid) 50 mcg PO ACBREAKFAST [facility] Losartan Potassium (Cozaar) 100 mg PO DAILY B[facility] Metformin HCl (Glucophage) 500 mg PO WITHBREAKFAST [facility] Metoprolol Tartrate (Lopressor) 25 mg PO BID [facility] Multivitamins (Thera) 1 each PO DAILY [facility] Non-Formulary Medication (Fish Oil/[place]-3 Fatty Acids [Fish Oil 1,000 Mg]) 2 gm PO DAILY [facility] Non-Formulary Medication (Formoterol Fumarate [Perforomist]) 2 ml INH BID [facility] Non-Formulary Medication (Non-Formulary Medication [Nf Drug]) 1 puff INH DAILY [facility] Non-Formulary Medication (Potassium [Potassium]) 99 mg PO DAILY [facility] Nystatin (Mycostatin) 5 ml PO QID [facility] Omeprazole (Omeprazole) 20 mg PO DAILY [facility] Ondansetron HCl (Zofran Odt) 4 mg PO Q6H PRN PRN Reason: nausea, able to take PO Ondansetron HCl (Zofran) 4 mg IVPUSH Q6H PRN PRN Reason: Nausea/Vomiting Sucralfate (Carafate) 1 gm PO QIDACANDBED [facility] Theophylline (Niall-24) 200 mg PO DAILY [facility] Trazodone HCl (Trazodone) 50 mg PO BEDTIME [facility] Meds: Medications Generic Name Dose Route Start Last Admin Trade Name Freq PRN Reason Stop Dose Admin Acetaminophen 650 mg 03/11/20 17:40 Tylenol PO Q6H PRN Pain Albuterol 0 gm 03/11/20 17:43 Proventil Hfa INH Q4H PRN Wheezing Albuterol/Ipratropium 3 ml 03/11/20 17:43 Duoneb 3.0-0.5 Mg/3 Ml INH Q6HR PRN Wheezing Budesonide 0.5 mg 03/11/20 21:00 Pulmicort INH BID [facility] Calcium Carbonate 1 tab 03/12/20 09:00 Calcium Carbonate/Vitamin D 1250 Mg-200 Unit PO DAILY [facility] Clopidogrel Bisulfate 75 mg 03/12/20 09:00 Plavix PO Q48H [facility] Dextrose/Water 25 ml 03/11/20 17:40 Dextrose 50% In Water IVPUSH ASDIRECTED PRN Hypoglycemia Fluticasone Propionate 0 gm 03/11/20 21:00 Flonase NASBOTH BID [facility] Furosemide 20 mg 03/12/20 09:00 Lasix PO DAILY [facility] Glucagon 1 mg 03/11/20 17:40 Glucagen IM ONETIME PRN Hypoglycemia Heparin Sodium (Porcine) 5,000 units 03/11/20 22:00 Heparin Sodium SUBCUT Q8HR [facility] Levothyroxine Sodium 50 mcg 03/12/20 06:00 Synthroid PO ACBREAKFAST [facility] Losartan Potassium 100 mg 03/12/20 09:00 Cozaar PO DAILY [facility] Metformin HCl 500 mg 03/12/20 08:00 Glucophage PO WITHBREAKFAST [facility] Metoprolol Tartrate 25 mg 03/11/20 21:00 Lopressor PO BID [facility] Multivitamins 1 each 03/12/20 09:00 Thera PO DAILY [facility] Non-Formulary Medication 2 gm 03/12/20 09:00 Fish Oil/[place]-3 Fatty Acids [Fish Oil 1,000 Mg] PO DAILY [facility] Non-Formulary Medication 2 ml 03/11/20 21:00 Formoterol Fumarate [Perforomist] INH BID [facility] Non-Formulary Medication 1 puff 03/12/20 09:00 Non-Formulary Medication [Nf Drug] INH DAILY [facility] Non-Formulary Medication 99 mg 03/12/20 09:00 Potassium [Potassium] PO DAILY [facility] Nystatin 5 ml 03/11/20 18:00 Mycostatin PO QID [facility] Omeprazole 20 mg 03/12/20 09:00 Omeprazole PO DAILY [facility] Ondansetron HCl 4 mg 03/11/20 17:40 Zofran Odt PO Q6H PRN nausea, able to take PO Ondansetron HCl 4 mg 03/11/20 17:40 Zofran IVPUSH Q6H PRN Nausea/Vomiting Sucralfate 1 gm 03/11/20 21:00 Carafate PO QIDACANDBED [facility] Theophylline 200 mg 03/12/20 09:00 Niall-24 PO DAILY [facility] Trazodone HCl 50 mg 03/11/20 21:00 Trazodone PO BEDTIME [facility] Discontinued Medications Generic Name Dose Route Start Last Admin Trade Name Freq PRN Reason Stop Dose Admin Potassium Chloride 40 meq 03/11/20 17:52 Klor-Con 10 PO 03/11/20 17:53 ONETIME ONE - Re-Assessments/Exams Free Text/Narrative Re-Assessment/Exam: 03/11/20 18:09 Patient case discussed with Dr. Black who agreed to accept the patient for observation admission for weakness. It was explained thoroughly to the patient that since the patient was just discharged from [facility] today and she was fully ambulatory and independant at that time, and the fact that she declined home health services, it is possible that insurance may reject the claim and this may be an out of pocket expense. Patient states understanding and states "well, I have to do something, I can't get around at my house and my friend that lives with me can't help me". Departure - Departure Time of Disposition: 17:11 Disposition: Refer to Observation Condition: Fair Clinical Impression: Weakness - Discharge Information *PRESCRIPTION DRUG MONITORING PROGRAM REVIEWED*: No *COPY OF PRESCRIPTION DRUG MONITORING REPORT IN PATIENT ALLAN: No Sepsis Event Note - Evaluation Sepsis Screening Result: No Definite Risk - Focused Exam Vital Signs: Vital Signs Temp Pulse Resp BP Pulse Ox 03/11/20 15:39 98.4 F 100 16 151/77 H 96 Date Exam was Performed: 03/11/20 Time Exam was Performed: 18:09 I have read and agree with the documentation that has been completed regarding this visit. By signing this record, I attest that the documentation was completed in my physical presence and is an accurate record of the encounter.
[2020-03-11] MEDS: Nystatin Susp 100,000 Unit/ML 5 ML UD Cup PO SCH ×2 (18:25→20:48)
[2020-03-11] MEDS: Acetaminophen 325 MG Tab PO PRN (19:56)
[2020-03-11] MEDS: Metoprolol Tartrate 25 MG Tab PO SCH (20:47)
[2020-03-11] MEDS: traZODone 50 MG Tab PO SCH (20:47)
[2020-03-11] MEDS: Sucralfate 1 GM Tab PO SCH (20:48)
[2020-03-11] MEDS: FLUTICASONE PROPIONATE NASBOTH SCH (20:49)
[2020-03-11] MEDS ORDERED: FORMOTEROL FUMARATE INH SCH (21:00)
[2020-03-11] MEDS ORDERED: Fluticasone Propionate Nasal Spray 16 GM Bottle NASBOTH SCH (21:00)
[2020-03-11] MEDS ORDERED: Budesonide 0.5 MG/2 ML Neb Susp INH SCH (21:00)
[2020-03-11] MEDS ORDERED: Sodium Chloride 0.9% 10 ML Syringe FLUSH PRN (21:01)
[2020-03-11] MEDS: Heparin Sodium 5,000 Units/ML Vial SUBCUT SCH (21:13)
[2020-03-12] MEDS ORDERED: Levothyroxine 50 MCG Tab PO SCH (06:00)
[2020-03-12] MEDS: LEVOTHYROXINE 50 MCG PO SCH (06:26)
[2020-03-12] MEDS: Sucralfate 1 GM Tab PO SCH ×4 (06:26→21:06)
[2020-03-12] MEDS: Heparin Sodium 5,000 Units/ML Vial SUBCUT SCH ×3 (06:27→21:25)
[2020-03-12 06:51] LABS: ANION GAP 11.8 mEq/L (7-13); CHLORIDE,CL 104 mmol/L (98-107); SODIUM,NA 142 mmol/L (136-145)
[2020-03-12] MEDS ORDERED: FORMOTEROL FUMARATE INH SCH (07:00)
[2020-03-12] MEDS: Budesonide 0.5 MG/2 ML Neb Susp INH SCH ×2 (07:51→17:44)
[2020-03-12] MEDS: Metoprolol Tartrate 25 MG Tab PO SCH ×2 (08:35→21:05)
[2020-03-12] MEDS: Losartan 50 MG Tab PO SCH (08:36)
[2020-03-12] MEDS: Omeprazole 20 MG Cap.CR PO SCH (08:36)
[2020-03-12] MEDS: Calcium Carbonate/Vitamin D3 1250 MG-200 Unit Tab PO SCH (08:37)
[2020-03-12] MEDS: Furosemide 20 MG Tab PO SCH (08:37)
[2020-03-12] MEDS: Multivitamins,Therapeutic Tab PO SCH (08:37)
[2020-03-12] MEDS: metFORMIN 500 MG Tab PO SCH (08:38)
[2020-03-12] MEDS: FLUTICASONE PROPIONATE NASBOTH SCH ×2 (08:38→21:07)
[2020-03-12] MEDS: Nystatin Susp 100,000 Unit/ML 5 ML UD Cup PO SCH ×4 (08:38→21:07)
[2020-03-12] MEDS ORDERED: Theophylline 200 MG Cap.ER PO SCH (09:00)
[2020-03-12] MEDS ORDERED: Clopidogrel 75 MG Tab PO SCH (09:00)
[2020-03-12] MEDS ORDERED: [UNRECOGNIZED DRUG - OTHER] INH SCH (09:00)
--- NOTE | 2020-03-12 10:39 | PCM.PN ---
- General Info Date of Service: 03/12/20 Admission Dx/Problem (Free Text): Admission Diagnosis/Problem Admission Diagnosis/Problem Weakness Subjective Update: Reports continued weakness. States palpitation has not recurred. Denies chest pain, SOB, f/c, n/v/dc, dysuria, hematuria, edema, or any new symptoms. - Patient Data Vitals - Most Recent: Last Vital Signs Temp 97.1 F 03/12/20 07:18 Pulse 84 03/12/20 08:35 Resp 20 03/12/20 07:18 BP 142/53 H 03/12/20 08:36 Pulse Ox 96 03/12/20 07:53 Weight - Most Recent: 137 lb 12.8 oz I&O - Last 24 Hours: Intake & Output 03/11/20 03/12/20 03/12/20 22:59 06:59 14:59 Intake Total 240 440 Output Total 50 Balance 190 440 Lab Results Last 24 Hours: Laboratory Results - last 24 hr 03/11/20 03/11/20 03/11/20 Range/Units 16:55 16:55 21:12 WBC 10.8 H (5.0-10.0) 10^3/uL RBC 3.54 L (4.2-5.4) 10^6/uL Hgb 10.6 L D (12.0-16.0) g/dL Hct 34.0 L (37.0-47.0) % MCV 96.0 D (80-100) fL MCH 29.9 (27.0-34.0) pg MCHC 31.2 L (33.0-35.0) g/dL Plt Count 219 (150-450) 10^3/uL Neut % (Auto) 82.7 H (42.2-75.2) % Lymph % (Auto) 6.3 L (20.5-50.1) % [place] % (Auto) 8.6 H (2-8) % Eos % (Auto) 2.2 (1.0-3.0) % Baso % (Auto) 0.2 (0.0-1.0) % Sodium 140 (136-145) mmol/L Potassium 3.4 L (3.5-5.1) mmol/L Chloride 101 (98-107) mmol/L Carbon Dioxide 31 (21-32) mmol/L Anion Gap 11.4 (7-13) mEq/L BUN 13 (7-18) mg/dL Creatinine 0.89 (0.55-1.02) mg/dL Est Cr Clr Drug Dosing TNP Estimated GFR (MDRD) > 60 BUN/Creatinine Ratio 14.6 (No establ ref range) Glucose 133 H (74-99) mg/dL POC Glucose 92 (83-110) mg/dl Calcium 9.4 (8.5-10.1) mg/dL Total Bilirubin 0.2 (0.2-1.0) mg/dL AST 19 (15-37) U/L ALT 21 (14-59) U/L Alkaline Phosphatase 55 (46-116) U/L Total Protein 6.5 (6.4-8.2) g/dL Albumin 3.1 L (3.4-5.0) g/dL Globulin 3.4 Albumin/Globulin Ratio 0.91 03/12/20 03/12/20 Range/Units 06:15 07:49 WBC (5.0-10.0) 10^3/uL RBC (4.2-5.4) 10^6/uL Hgb (12.0-16.0) g/dL Hct (37.0-47.0) % MCV (80-100) fL MCH (27.0-34.0) pg MCHC (33.0-35.0) g/dL Plt Count (150-450) 10^3/uL Neut % (Auto) (42.2-75.2) % Lymph % (Auto) (20.5-50.1) % [place] % (Auto) (2-8) % Eos % (Auto) (1.0-3.0) % Baso % (Auto) (0.0-1.0) % Sodium 142 (136-145) mmol/L Potassium 3.8 (3.5-5.1) mmol/L Chloride 104 (98-107) mmol/L Carbon Dioxide 30 (21-32) mmol/L Anion Gap 11.8 (7-13) mEq/L BUN 11 (7-18) mg/dL Creatinine 0.75 (0.55-1.02) mg/dL Est Cr Clr Drug Dosing 42.26 Estimated GFR (MDRD) > 60 BUN/Creatinine Ratio (No establ ref range) Glucose 120 H (74-99) mg/dL POC Glucose 106 (83-110) mg/dl Calcium 9.0 (8.5-10.1) mg/dL Total Bilirubin (0.2-1.0) mg/dL AST (15-37) U/L ALT (14-59) U/L Alkaline Phosphatase (46-116) U/L Total Protein (6.4-8.2) g/dL Albumin (3.4-5.0) g/dL Globulin Albumin/Globulin Ratio Med Orders - Current: Current Medications Acetaminophen (Tylenol) 650 mg PO Q6H PRN PRN Reason: Pain Last Admin: 03/11/20 19:56 Dose: 650 mg Albuterol (Proventil Hfa) 0 gm INH Q4H PRN PRN Reason: Wheezing Albuterol/Ipratropium (Duoneb 3.0-0.5 Mg/3 Ml) 3 ml INH Q6HR PRN PRN Reason: Wheezing Budesonide (Pulmicort) 0.[address] [facility] Last Admin: 03/12/20 07:51 Dose: 0.5 mg Calcium Carbonate (Calcium Carbonate/Vitamin D 1250 Mg-200 Unit) [address] [facility] Last Admin: 03/12/20 08:37 Dose: 1 tab Clopidogrel Bisulfate (Plavix) [address] [facility] Last Admin: 03/12/20 08:37 Dose: 75 mg Dextrose/Water (Dextrose 50% In Water) 25 ml IVPUSH ASDIRECTED PRN PRN Reason: Hypoglycemia Fluticasone Propionate (Flonase) [address] [facility] Last Admin: 03/12/20 08:38 Dose: 1 spray Furosemide (Lasix) [address] [facility] Last Admin: 03/12/20 08:37 Dose: 20 mg Glucagon (Glucagen) 1 mg IM ONETIME PRN PRN Reason: Hypoglycemia Heparin Sodium (Porcine) (Heparin Sodium) 5,[address] [facility] Last Admin: 03/12/20 06:27 Dose: 5,000 units Levothyroxine Sodium (Synthroid) [address] [facility] Last Admin: 03/12/20 06:26 Dose: 50 mcg Losartan Potassium (Cozaar) [address] [facility] Last Admin: 05/21/20 08:36 Dose: 100 mg Metformin HCl (Glucophage) [address] [facility] Last Admin: 03/12/20 08:38 Dose: 500 mg Metoprolol Tartrate (Lopressor) [address] [facility] Last Admin: 03/12/20 08:35 Dose: 25 mg Multivitamins (Thera) [address] [facility] Last Admin: 03/12/20 08:37 Dose: 1 each Non-Formulary Medication (Fish Oil/[place]-3 Fatty Acids [Fish Oil 1,000 Mg]) [address] [facility] Non-Formulary Medication (Non-Formulary Medication [Nf Drug]) [address] [facility] Non-Formulary Medication (Potassium [Potassium]) [address] [facility] Formoterol Fumarate [Perforomist] 20mcg/2 Ml Neb [address] [facility] Nystatin (Mycostatin) [address] [facility] Last Admin: 03/12/20 08:38 Dose: 5 ml Omeprazole (Omeprazole) [address] [facility] Last Admin: 03/12/20 08:36 Dose: 20 mg Ondansetron HCl (Zofran Odt) 4 mg PO Q6H PRN PRN Reason: nausea, able to take PO Ondansetron HCl (Zofran) 4 mg IVPUSH Q6H PRN PRN Reason: Nausea/Vomiting Sodium Chloride (Saline Flush) 10 ml FLUSH ASDIRECTED PRN PRN Reason: IV Use Sucralfate (Carafate) [address] [facility] Last Admin: 03/12/20 06:26 Dose: 1 gm Theophylline (Niall-24) [address] [facility] Last Admin: 03/12/20 08:36 Dose: 200 mg Trazodone HCl (Trazodone) [address] [facility] Last Admin: 03/11/20 20:47 Dose: 50 mg Discontinued Medications Budesonide (Pulmicort) 0.[address] [facility] Last Admin: 03/11/20 20:51 Dose: 0.5 mg Fluticasone Propionate (Flonase) [address] [facility] Levothyroxine Sodium (Synthroid) [address] [facility] Own Med (Formoterol Fumarate [ Perforomist] 2 Ml) [address] [facility] Last Admin: 03/11/20 20:50 Dose: 2 ml Own Med (Formoterol Fumarate [ Perforomist] 2 Ml) 2 ml INH BIDRT [facility] Last Admin: 03/12/20 07:52 Dose: 2 ml Potassium Chloride (Klor-Con 10) 40 meq PO ONETIME ONE Stop: 03/11/20 17:53 Last Admin: 03/11/20 18:25 Dose: 40 meq - Exam General: Alert, Oriented, Cooperative, No Acute Distress HEENT: Pupils Equal, Mucous Membr. Moist/[place] Neck: Supple, Trachea Midline Lungs: Clear to Auscultation, Normal Respiratory Effort Cardiovascular: Regular Rate, Regular Rhythm GI/Abdominal Exam: Normal Bowel Sounds, Soft, Non-Tender, No Distention Extremities: Normal Inspection, Non-Tender, No Pedal Edema Skin: Warm, Dry, Intact Neurological: No New Focal Deficit Psy/Mental Status: Alert, Normal Affect, Normal Mood Sepsis Event Note - Evaluation Sepsis Screening Result: No Definite Risk - Focused Exam Vital Signs: Vital Signs Temp Pulse Pulse Resp BP BP Pulse Ox 03/12/20 08:36 142/53 H 03/12/20 08:35 84 142/53 H 03/12/20 07:53 03/12/20 07:52 90 03/12/20 07:18 97.1 F 84 20 142/53 H 98 03/12/20 05:00 98.8 F 83 20 151/53 H 100 Pulse Ox 03/12/20 08:36 03/12/20 08:35 03/12/20 07:53 96 03/12/20 07:52 03/12/20 07:18 03/12/20 05:00 Date Exam was Performed: 03/12/20 Time Exam was Performed: 18:26 - Problem List & Annotations (1) COPD (chronic obstructive pulmonary disease) SNOMED Code(s): 84264916 Code(s): J44.9 - CHRONIC OBSTRUCTIVE PULMONARY DISEASE, UNSPECIFIED Status : Acute Current Visit: Yes (2) Diabetes SNOMED Code(s): 06884944 Code(s): E11.9 - TYPE 2 DIABETES MELLITUS WITHOUT COMPLICATIONS Status: Acute Current Visit: No (3) HTN (hypertension) SNOMED Code(s): 64372619 Code(s): I10 - ESSENTIAL (PRIMARY) HYPERTENSION Status: Acute Current Visit: No (4) Weakness generalized SNOMED Code(s): 62782453 Code(s): R53.1 - WEAKNESS Status: Acute Current Visit: Yes - Problem List Review Problem List Initiated/Reviewed/Updated: Yes - My Orders Last 24 Hours: My Active Orders 03/11/20 17:40 Blood Glucose Check, Bedside [] WITHMEALSANDBED Diabetes Education [RC] Click to Edit Notify Provider [RC] PRN Up With Assistance [RC] ASDIRECTED VTE/DVT Education [RC] PER UNIT ROUTINE Vital Signs [RC] 00,04,08,12,16,20 Acetaminophen [Tylenol] 650 mg PO Q6H PRN Dextrose 50% in Water 25 ml IVPUSH ASDIRECTED PRN Glucagon,Human Recombinant [GlucaGen] 1 mg IM ONETIME PRN Ondansetron [Zofran ODT] 4 mg PO Q6H PRN Ondansetron [Zofran] 4 mg IVPUSH Q6H PRN Resuscitation Status Routine 03/11/20 17:43 Albuterol [Proventil HFA] 0 gm INH Q4H PRN Albuterol/Ipratropium [DuoNeb 3.0-0.5 MG/3 ML] 3 ml INH Q6HR PRN 03/11/20 18:00 Nystatin [Mycostatin] 5 ml PO QID 03/11/20 21:00 Fluticasone Propionate [Flonase] 0 gm NASBOTH BID Metoprolol Tartrate [Lopressor] 25 mg PO BID Sucralfate [Carafate] 1 gm PO QIDACANDBED traZODone 50 mg PO BEDTIME 03/11/20 21:01 Sodium Chloride 0.9% [Saline Flush] 10 ml FLUSH ASDIRECTED PRN 03/11/20 22:00 Heparin Sodium 5,000 units SUBCUT Q8HR 03/11/20 Dinner Consistent Carbohydrate Diet [DIET] 03/12/20 06:00 Levothyroxine [Synthroid] 50 mcg PO ACBREAKFAST 03/12/20 07:00 Budesonide [Pulmicort] 0.5 mg INH BIDRT 03/12/20 08:00 metFORMIN [Glucophage] 500 mg PO WITHBREAKFAST 03/12/20 09:00 Calcium Carbonate/Vitamin D3 [Calcium Carbonate/Vitamin D 1250 MG-200 Unit] 1 tab PO DAILY Clopidogrel [Plavix] 75 mg PO Q48H Fish Oil/Chambers-3 Fatty Acids [Fish Oil 1,000 MG] 2 gm PO DAILY Furosemide [Lasix] 20 mg PO DAILY Losartan [Cozaar] 100 mg PO DAILY Multivitamins,Therapeutic [Thera] 1 each PO DAILY Non-Formulary Medication [NF Drug] 1 puff INH DAILY Omeprazole 20 mg PO DAILY Potassium [Potassium] 99 mg PO DAILY Theophylline [Niall-24] 200 mg PO DAILY 03/12/20 18:00 Formoterol Fumarate [Perforomist] 0 ml INH BIDRT - Plan Plan:: Generalized weakness: patient discharged home earlier today. Returned to the ED with complaints of weakness and inability to go up stairs. - PT/OT - Fall precautions. - Will need placement. #DM II: - Continue metformin - SSI with hypoglycemia protocol. #CAD #HTN: - No acute issues. - Continue home medication. #Hypokalemia: K is 3.4. - Oral KCl replacement - Monitor and replace electrolytes. #COPD: Not in exacerbation - Continue home meds. - Supplemental O2 prn to keep O2 sats between 88-92% #GERD: Prilosec DVT PPx: Heparin GI PPx: Prilosec Code Status: DNR/DNI
[2020-03-12] MEDS ORDERED: Albuterol 6.7 GM Inhaler INH PRN (14:55)
[2020-03-12] MEDS ORDERED: ALBUTEROL 90 MCG INH PRN (14:55)
[2020-03-12] MEDS: FORMOTEROL FUMARATE 20 MCG/2 ML INH SCH (17:44)
[2020-03-12] MEDS: Acetaminophen 325 MG Tab PO PRN (19:51)
[2020-03-12] MEDS: traZODone 50 MG Tab PO SCH (21:06)
[2020-03-13] MEDS: Heparin Sodium 5,000 Units/ML Vial SUBCUT SCH (05:11)
[2020-03-13] MEDS: LEVOTHYROXINE 50 MCG PO SCH (05:14)
[2020-03-13] MEDS: Sucralfate 1 GM Tab PO SCH (07:31)
[2020-03-13] MEDS: metFORMIN 500 MG Tab PO SCH (07:31)
[2020-03-13] MEDS: Acetaminophen 325 MG Tab PO PRN (07:33)
[2020-03-13] MEDS: Budesonide 0.5 MG/2 ML Neb Susp INH SCH (07:34)
[2020-03-13] MEDS: FORMOTEROL FUMARATE 20 MCG/2 ML INH SCH (07:36)
[2020-03-13 08:26] VITALS: BP 162/55; PULSE 102
[2020-03-13] MEDS: Multivitamins,Therapeutic Tab PO SCH (08:45)
[2020-03-13] MEDS: Omeprazole 20 MG Cap.CR PO SCH (08:46)
[2020-03-13] MEDS: Losartan 50 MG Tab PO SCH (08:46)
[2020-03-13] MEDS: Furosemide 20 MG Tab PO SCH (08:47)
[2020-03-13] MEDS: Metoprolol Tartrate 25 MG Tab PO SCH (08:47)
[2020-03-13] MEDS: Calcium Carbonate/Vitamin D3 1250 MG-200 Unit Tab PO SCH (08:47)
[2020-03-13] MEDS: FLUTICASONE PROPIONATE NASBOTH SCH (08:48)
[2020-03-13] MEDS: Nystatin Susp 100,000 Unit/ML 5 ML UD Cup PO SCH (08:49)
[2020-03-13] MEDS ORDERED: TIOTROPIUM 18 MCG INH SCH (09:00)
[2020-03-13] MEDS ORDERED: OMEGA PO SCH (09:00)
[2020-03-13] MEDS ORDERED: FATTY ACIDS PO SCH (09:00)
[2020-03-13] MEDS ORDERED: FISH OIL PO SCH (09:00)
[2020-03-13] MEDS ORDERED: POTASSIUM GLUCONATE 99 MG PO SCH (09:00)
[2020-03-13] MEDS ORDERED: THEOPHYLLINE 400 MG PO SCH (09:00)
--- NOTE | 2020-03-13 09:28 | PCM.DCSUM1 ---
Discharge Summary - Hospital Course Free Text/Narrative:: Mrs. Elias an 79year old patient with a history of COPD, DMT2, CAD, and Hypertension who presented to [facility] with SOB. COVID was negative Her troponin was elevated on admit. She was treated for COPD exacerbation, pneumonia, and CHF. She was on a Bipap and then transitioned to a high flow nasal cannula mask and eventually to NC. Echo showed an EF of 60-65%, diastolic dysfunction, and severe RVH. She went into ARF which did eventually resolve. Cardiology was consulted but she was unable to have an angiogram due to her poor respiratory status. She had melena stools and epigastric pain for which GI was consulted. An EGD was contemplated but couldn't be done due to her poor respiratory status. Hemoglobin has remained stable. Patient apparently refused further evaluation for GIB. Her symptoms improved. PT worked with patient and recommended discharge to [facility] for PT/OT. She was discharged to [facility] to continue PT/OT. Patient tolerated therapies and is now independent in her room. She declined home health services. She was discharged home with family support. Patient returned to the ED the same evening with reports of weakness. Stated that was unable to go up steps that goes to her bathroom. She is being discharged to [facility]. She needs front wheel walker for weakness. HPI Initial Comments: Mrs. Elias an 79year old patient with a history of COPD, DMT2, CAD, and Hypertension who presented to [facility] with SOB. COVID was negative Her troponin was elevated on admit. She was treated for COPD exacerbation, pneumonia, and CHF. She was on a Bipap and then transitioned to a high flow nasal cannula mask and eventually to NC. Echo showed an EF of 60-65%, diastolic dysfunction, and severe RVH. She went into ARF which did eventually resolve. Cardiology was consulted but she was unable to have an angiogram due to her poor respiratory status. She had melena stools and epigastric pain for which GI was consulted. An EGD was contemplated but couldn't be done due to her poor respiratory status. Hemoglobin has remained stable. Patient apparently refused further evaluation for GIB. Her symptoms improved. PT worked with patient and recommended discharge to [facility] for PT/OT. She was discharged to [facility] to continue PT/OT. Patient tolerated therapies and is now independent in her room. She declined home health services. She is being discharged home with family support. Patient returned to the ED this evening with reports of weakness. States that her significant other was helping her to go to the bathroom. States she was ambulating without a walker. Was unable to go up a step that goes to her bathroom. Let herself down on the floor and her heart was pounding. Denies head trauma of LOC. Denies chest pain, SOB, n/v/d/c, f/c, dysuria, hematuria, or any new symptoms. Diagnosis: Stroke: No - Discharge Data Discharge Date: 03/13/20 Discharge Disposition: DC/[facility]fer to [facility] Condition: Good - Referral to Home Health Primary Care Physician: Craig Espinal MD - Discharge Diagnosis/Problem(s) (1) COPD (chronic obstructive pulmonary disease) SNOMED Code(s): 30669283 ICD Code: J44.9 - CHRONIC OBSTRUCTIVE PULMONARY DISEASE, UNSPECIFIED Status : Acute Current Visit: Yes (2) Diabetes SNOMED Code(s): 44365034 ICD Code: E11.9 - TYPE 2 DIABETES MELLITUS WITHOUT COMPLICATIONS Status: Acute Current Visit: No (3) HTN (hypertension) SNOMED Code(s): 41469767 ICD Code: I10 - ESSENTIAL (PRIMARY) HYPERTENSION Status: Acute Current Visit: No (4) Weakness generalized SNOMED Code(s): 86660999 ICD Code: R53.1 - WEAKNESS Status: Acute Current Visit: Yes - Patient Summary/Data Consults: Consultations 03/12/20 14:18 Consult to Occupational Therapy [OT Evaluation and Treatment] [CONS] Routine Consult to Physical Therapy [PT Evaluation and Treatment] [CONS] Routine - Discharge Plan *PRESCRIPTION DRUG MONITORING PROGRAM REVIEWED*: No *COPY OF PRESCRIPTION DRUG MONITORING REPORT IN PATIENT ALLAN: No Home Medications: Home Meds Acetaminophen [Tylenol Extra Strength] 2 tab PO Q6H PRN 10/22/14 [History] Budesonide [Pulmicort] 2 ml INH BID 10/22/14 [History] Fluticasone Propionate [Flonase] 1 spray NASBOTH BID 10/22/14 [History] Furosemide [Lasix] 20 mg PO DAILY 10/22/14 [History] Ipratropium/Albuterol Sulfate [Iprat-Albut 0.5-3(2.5) MG/3 ML] 3 ml INH Q6HR PRN 10/22/14 [History] Losartan [Cozaar] 100 mg PO DAILY 10/22/14 [History] Multivitamin [Multi-Vitamin Daily] 1 tab PO DAILY 10/22/14 [History] Omeprazole [Prilosec] 20 mg PO DAILY 10/22/14 [History] traZODone 50 mg PO BEDTIME 10/22/14 [History] Calcium Carbonate/Vitamin D3 [Calcium 600 + Vit D Tablet] 1 mg PO DAILY [History] Levothyroxine [Synthroid] 50 mcg PO DAILY 12/09/15 [History] Fish Oil/[place]-3 Fatty Acids [Fish Oil 1,000 MG] 2 gm PO DAILY 03/16/18 [History ] Formoterol Fumarate [Perforomist] 2 ml INH BID 03/16/18 [History] Potassium 99 mg PO DAILY 03/16/18 [History] Fexofenadine [Evie] 60 mg PO DAILY 02/13/20 [History] Theophylline [Niall-24] 200 mg PO DAILY 02/13/20 [History] Albuterol [Ventolin HFA] 2 oz PO Q4H PRN 02/28/20 [History] Clopidogrel [Plavix] 75 mg PO .[id number] MDD x 30 days- end day 03/29/20 02/28/20 [ History] Metoprolol Tartrate 25 mg PO BID 02/28/20 [History] Non-Formulary Medication [NF Drug] 1 puff INH DAILY 02/28/20 [History] Sucralfate 1 gm PO QIDACANDBED MDD x14 days from 02/28/20 02/28/20 [History] metFORMIN [Glucophage] 500 mg PO WITHBREAKFAST 02/28/20 [History] Patient Handouts: Weakness, [id number] Referrals: Craig Espinal MD [Primary Care Provider] - - Discharge Summary/Plan Comment DC Time >30 min.: Yes - General Info Date of Service: 03/13/20 Admission Dx/Problem (Free Text: Admission Diagnosis/Problem Admission Diagnosis/Problem Weakness Subjective Update: No acute events overnight. Denies chest pain, SOB, f/c, n/v/dc, dysuria, hematuria, edema, or any new symptoms. - Patient Data Vitals - Most Recent: Last Vital Signs Temp 98.1 F 03/13/20 08:00 Pulse 102 H 03/13/20 08:47 Resp 20 03/13/20 08:00 BP 162/55 H 03/13/20 08:47 Pulse Ox 95 03/13/20 08:00 Weight - Most Recent: 137 lb 12.8 oz I&O - Last 24 hours: Intake & Output 03/12/20 03/13/20 03/13/20 22:59 06:59 14:59 Intake Total 360 560 Balance 360 560 Lab Results - Last 24 hrs: Laboratory Results - last 24 hr 03/12/20 03/12/20 03/12/20 Range/Units 11:49 16:51 20:26 POC Glucose 104 99 106 (83-110) mg/dl 03/13/20 Range/Units 07:56 POC Glucose 118 H (83-110) mg/dl Med Orders - Current: Current Medications Acetaminophen (Tylenol) 650 mg PO Q6H PRN PRN Reason: Pain Last Admin: 03/13/20 07:33 Dose: 650 mg Albuterol/Ipratropium (Duoneb 3.0-0.5 Mg/3 Ml) 3 ml INH Q6HR PRN PRN Reason: Wheezing Budesonide (Pulmicort) 0.5 mg INH BIDRT [facility] Last Admin: 03/13/20 07:34 Dose: 0.5 mg Calcium Carbonate (Calcium Carbonate/Vitamin D 1250 Mg-200 Unit) 1 tab PO DAILY [facility] Last Admin: 03/13/20 08:47 Dose: 1 tab Clopidogrel Bisulfate (Plavix) 75 mg PO Q48H [facility] Last Admin: 03/12/20 08:37 Dose: 75 mg Dextrose/Water (Dextrose 50% In Water) 25 ml IVPUSH ASDIRECTED PRN PRN Reason: Hypoglycemia Fluticasone Propionate (Flonase) 0 gm NASBOTH BID [facility] Last Admin: 03/13/20 08:48 Dose: 1 spray Furosemide (Lasix) 20 mg PO DAILY [facility] Last Admin: 03/13/20 08:47 Dose: 20 mg Glucagon (Glucagen) 1 mg IM ONETIME PRN PRN Reason: Hypoglycemia Heparin Sodium (Porcine) (Heparin Sodium) 5,000 units SUBCUT Q8HR [facility] Last Admin: 03/13/20 05:11 Dose: 5,000 units Levothyroxine Sodium (Synthroid) 50 mcg PO ACBREAKFAST [facility] Last Admin: 03/13/20 05:14 Dose: 50 mcg Losartan Potassium (Cozaar) 100 mg PO DAILY [facility] Last Admin: 03/13/20 08:46 Dose: 100 mg Metformin HCl (Glucophage) 500 mg PO WITHBREAKFAST [facility] Last Admin: 03/13/20 07:31 Dose: 500 mg Metoprolol Tartrate (Lopressor) 25 mg PO BID [facility] Last Admin: 03/13/20 08:47 Dose: 25 mg Multivitamins (Thera) 1 each PO DAILY [facility] Last Admin: 03/13/20 08:45 Dose: 1 each Fish Oil/Wales-3 Fatty Acids 1,000 Mg Softgel *Own Med* 0 gm PO DAILY [facility] Last Admin: 03/13/20 08:48 Dose: 1 gm Formoterol Fumarate [Perforomist] 20mcg/2 Ml Neb 0 ml INH BIDRT [facility] Last Admin: 03/13/20 07:36 Dose: 2 ml Nystatin (Mycostatin) 5 ml PO QID [facility] Last Admin: 03/13/20 08:49 Dose: 5 ml Omeprazole (Omeprazole) 20 mg PO DAILY [facility] Last Admin: 03/13/20 08:46 Dose: 20 mg Ondansetron HCl (Zofran Odt) 4 mg PO Q6H PRN PRN Reason: nausea, able to take PO Ondansetron HCl (Zofran) 4 mg IVPUSH Q6H PRN PRN Reason: Nausea/Vomiting Potassium Gluconate 99 Mg Caplet *Own Med* 0 each PO DAILY [facility] Last Admin: 03/13/20 08:48 Dose: 1 each Theophylline 400 Mg (Er Tab *Own Med*) 0 each PO DAILY [facility] Last Admin: 03/13/20 08:49 Dose: 1 each Albuterol [Ventolin] 90 Mcg Inhaler *Own Med* 0 each INH Q4H PRN PRN Reason: Wheezing Sodium Chloride (Saline Flush) 10 ml FLUSH ASDIRECTED PRN PRN Reason: IV Use Sucralfate (Carafate) 1 gm PO QIDACANDBED [facility] Last Admin: 03/13/20 07:31 Dose: 1 gm Tiotropium [place] (Spiriva Handihaler) 18 mcg INH DAILY [facility] Last Admin: 03/13/20 08:52 Dose: 18 mcg Trazodone HCl (Trazodone) 50 mg PO BEDTIME [facility] Last Admin: 03/12/20 21:06 Dose: 50 mg Discontinued Medications Albuterol (Proventil Hfa) 0 gm INH Q4H PRN PRN Reason: Wheezing Albuterol (Proventil Hfa) 0 gm INH Q4H PRN PRN Reason: Wheezing Budesonide (Pulmicort) 0.5 mg INH BID [facility] Last Admin: 03/11/20 20:51 Dose: 0.5 mg Fluticasone Propionate (Flonase) 0 gm NASBOTH BID [facility] Levothyroxine Sodium (Synthroid) 50 mcg PO ACBREAKFAST [facility] Own Med (Formoterol Fumarate [ Perforomist] 2 Ml) 2 ml INH BID [facility] Last Admin: 03/11/20 20:50 Dose: 2 ml Non-Formulary Medication (Non-Formulary Medication [Nf Drug]) 1 puff INH DAILY [facility] Last Admin: 03/12/20 14:51 Dose: Not Given Own Med (Formoterol Fumarate [ Perforomist] 2 Ml) 2 ml INH BIDRT [facility] Last Admin: 03/12/20 07:52 Dose: 2 ml Potassium Chloride (Klor-Con 10) 40 meq PO ONETIME ONE Stop: 03/11/20 17:53 Last Admin: 03/11/20 18:25 Dose: 40 meq Theophylline (Niall-24) 200 mg PO DAILY [facility] Last Admin: 03/12/20 08:36 Dose: 200 mg - Exam General: Reports: Alert, Oriented, Cooperative, No Acute Distress HEENT: Reports: Pupils Equal, Mucous Membr. Moist/[place] Neck: Reports: Supple, Trachea Midline Lungs: Reports: Clear to Auscultation, Normal Respiratory Effort Cardiovascular: Reports: Regular Rate, Regular Rhythm GI/Abdominal Exam: Normal Bowel Sounds, Soft, Non-Tender, No Distention Extremities: Normal Inspection, Non-Tender, No Pedal Edema Skin: Reports: Warm, Dry, Intact Neurological: Reports: No New Focal Deficit Psy/Mental Status: Reports: Alert, Normal Affect, Normal Mood
== END 2020-03-13 10:25 ==
LOC: DL.ED 15:28 → UNDOADMOB 16:48 → DL.MS 16:48 → UNDODISOB 03-13 10:25
PROVIDERS: ADMIT Internal Medicine; ATTEND Internal Medicine
DX: R53.1 Weakness (principal); J44.9 Chronic obstructive pulmonary disease, unspecified; I25.10 Atherosclerotic heart disease of native coronary artery without angina pectoris; E87.6 Hypokalemia; I11.0 Hypertensive heart disease with heart failure; I50.30 Unspecified diastolic (congestive) heart failure; N17.9 Acute kidney failure, unspecified; E11.9 Type 2 diabetes mellitus without complications; K21.9 Gastro-esophageal reflux disease without esophagitis; E03.9 Hypothyroidism, unspecified; E78.00 Pure hypercholesterolemia, unspecified; Z20.828 Contact with and (suspected) exposure to other viral communicable diseases; Z88.1 Allergy status to other antibiotic agents; Z88.8 Allergy status to other drugs, medicaments and biological substances; Z87.891 Personal history of nicotine dependence; Z79.890 Hormone replacement therapy; Z79.899 Other long term (current) drug therapy; Z79.51 Long term (current) use of inhaled steroids; Z79.84 Long term (current) use of oral hypoglycemic drugs
CPT/HCPCS: 36415; 80048; 80053; 82962; 85025; 94640; 96372; 97161-GP; 97165-GO; 99285; A9270-GY; G0378; J1644; U0002

== ENCOUNTER 2025-04-30 19:47 | Observation (INO) | payer MEDICARE, BC, MEDICAID ==
[2025-04-30 20:06] LABS: BASOPHILS PERCENT AUTO 0.4 % (0.0-1.0); EOSINOPHILS PERCENT AUTO 7.0 % (1.0-3.0); LYMPHOCYTES PERCENT AUTO 13.2 % (20.5-50.1); MONOCYTES PERCENT AUTO 15.9 % (2-8); NEUTROPHILS PERCENT AUTO 63.5 % (42.2-75.2); PLATELET COUNT,PLT 297 10^3/uL (150-450); RED BLOOD CELL COUNT 4.11 10^6/uL (4.2-5.4); WHITE BLOOD CELL COUNT,WBC 12.1 10^3/uL (5.0-10.0)
[2025-04-30 20:10] LABS: O2 DELIVERY DEVICE NASAL CANNULA
[2025-04-30] MEDS: Furosemide 40 MG/4 ML VIAL IVPUSH ONE (20:11)
[2025-04-30] MEDS: methylPREDNISolone Sodium Succinate 125 MG/2 ML SDV IV ONE (20:11)
[2025-04-30 20:13] LABS: PH,VENOUS 7.36 (7.31-7.41)
[2025-04-30 20:14] LABS: BASE EXCESS VENOUS 6.9 mmol/l ((-2)-(+3)); BICARBONATE,VENOUS 34 mmol/l (19-25); O2 SATURATION VENOUS 97.2 % (60-80); PO2 VENOUS 87 mmHg (35-42)
[2025-04-30 20:15] LABS: PCO2 VENOUS 61 mmHg (41-51)
[2025-04-30 20:21] LABS: INR 1.0 (0.9-1.2); PTT,PARTIAL THROMBOPLSTIN TIME 31.2 SEC (22.0-34.0)
[2025-04-30 20:26] LABS: A/G RATIO 1.0; ALANINE AMINOTRANSFERASE,ALT 21 U/L (14-59); ASPARTATE AMNIOTRANSFERASE,AST 17 U/L (15-37); BILIRUBIN TOTAL 0.3 mg/dL (0.2-1.0); BLOOD UREA NITROGEN,BUN 17 mg/dL (7-18); CARBON DIOXIDE,CO2 34 mmol/L (21-32); CHLORIDE,CL 100 mmol/L (98-107); CREATININE 0.84 mg/dL (0.55-1.02); EST CRCL DRUG DOSING (CG) 34.53 mL/min; GLUCOSE RANDOM 187 mg/dL (70-99); POTASSIUM,K 3.9 mmol/L (3.5-5.1); PROTEIN TOTAL,TP 7.7 g/dL (6.4-8.2); SODIUM,NA 138 mmol/L (136-145)
[2025-04-30 20:28] LABS: ESTIMATED GFR 68 mL/min (>=60)
[2025-04-30 20:30] LABS: LACTIC ACID 1.3 mmol/L (0.4-2.0)
[2025-04-30 20:32] LABS: D-DIMER QUANTITATIVE < 100 ng/mL (0-400)
[2025-04-30 20:34] LABS: B-TYPE NATRIURETIC PEPTIDE,BNP 56 pg/ml (0-100)
[2025-04-30] MEDS: Magnesium Sulfate/D5W 1 GM/100 ML BAG IV ONE (20:57)
[2025-04-30] MEDS: Magnesium Sulfate (4.06 MEQ/ML) 1 GM/2 ML SDV IV ONE (20:57)
[2025-04-30 21:20] LABS: APPEARANCE,URINE SLIGHTLY CLOUDY (CLEAR); GLUCOSE,URINE NEGATIVE (NEGATIVE); OCCULT BLOOD,URINE TRACE-INTACT (NEGATIVE)
[2025-04-30 21:33] LABS: EPITHELIAL CELLS,URINE FEW /HPF (NOT SEEN)
[2025-04-30] MEDS: Nitrofurantoin Monohydrate/Macrocrystalline 100 MG Cap PO ONE (22:01)
[2025-04-30] MEDS ORDERED: 50% Dextrose in Water 50 ML Syringe IVPUSH PRN (22:52)
[2025-04-30] MEDS: Amoxicillin/Clavulanate K 500-125 MG Tab PO SCH (23:00)
[2025-05-01] MEDS: Magnesium Sulfate (4.06 MEQ/ML) 1 GM/2 ML SDV IM ONE (02:42)
[2025-05-01 06:26] LABS: BASOPHILS PERCENT AUTO 0.2 % (0.0-1.0); EOSINOPHILS PERCENT AUTO 0.0 % (1.0-3.0); LYMPHOCYTES PERCENT AUTO 8.4 % (20.5-50.1); MONOCYTES PERCENT AUTO 1.7 % (2-8); NEUTROPHILS PERCENT AUTO 89.7 % (42.2-75.2); PLATELET COUNT,PLT 298 10^3/uL (150-450); RED BLOOD CELL COUNT 3.86 10^6/uL (4.2-5.4); WHITE BLOOD CELL COUNT,WBC 6.3 10^3/uL (5.0-10.0)
[2025-05-01] MEDS: Budesonide 0.5 MG/2 ML Neb Susp INH SCH (06:38)
[2025-05-01] MEDS: Arformoterol 15 MCG/2 ML Neb Soln INH SCH (06:41)
[2025-05-01 06:53] LABS: BLOOD UREA NITROGEN,BUN 15.0 mg/dL (7-18); CARBON DIOXIDE,CO2 33.0 mmol/L (21-32); CHLORIDE,CL 99.0 mmol/L (98-107); CREATININE 0.78 mg/dL (0.55-1.02); EST CRCL DRUG DOSING (CG) 37.19 mL/min; GLUCOSE RANDOM 173.0 mg/dL (70-99); PHOSPHORUS 3.6 mg/dL (2.6-4.7); POTASSIUM,K 3.9 mmol/L (3.5-5.1); SODIUM,NA 140.0 mmol/L (136-145)
[2025-05-01 06:57] LABS: ESTIMATED GFR 74.0 mL/min (>=60)
[2025-05-01 07:55] LABS: BASE EXCESS ARTERIAL 7 mmol/L ((-2)-(+3)); BICARBONATE,ARTERIAL 32.0 mmol/L (22-26); O2 DELIVERY DEVICE NASAL CANNULA; O2 SATURATION ARTERIAL 92 % (95-100); PCO2 ARTERIAL 51 mmHg (35-45); PH,ARTERIAL 7.41 (7.35-7.45); PO2 ARTERIAL 71 mmHg (70-100)
[2025-05-01] MEDS: methylPREDNISolone Sodium Succinate 40 MG/1 ML SDV IVPUSH SCH (08:42)
[2025-05-01] MEDS: Theophylline 200 MG Cap.ER PO SCH (10:20)
[2025-05-01 11:31] VITALS: BP 150/67; PULSE 91
== END 2025-05-01 13:15 | disposition home or self-care (01) ==
LOC: DL.ED 19:47 → DL.MS 21:52
PROVIDERS: ADMIT Internal Medicine; ATTEND Internal Medicine
DX: J96.01 Acute respiratory failure with hypoxia (principal); J44.1 Chronic obstructive pulmonary disease with (acute) exacerbation; I11.0 Hypertensive heart disease with heart failure; I50.9 Heart failure, unspecified; N39.0 Urinary tract infection, site not specified; E11.9 Type 2 diabetes mellitus without complications; E03.9 Hypothyroidism, unspecified; I48.91 Unspecified atrial fibrillation; K21.9 Gastro-esophageal reflux disease without esophagitis; K58.9 Irritable bowel syndrome, unspecified; G89.29 Other chronic pain; F41.9 Anxiety disorder, unspecified; Z88.8 Allergy status to other drugs, medicaments and biological substances; Z79.84 Long term (current) use of oral hypoglycemic drugs; Z87.891 Personal history of nicotine dependence; Z79.899 Other long term (current) drug therapy; Z79.890 Hormone replacement therapy; Z20.822 Contact with and (suspected) exposure to COVID-19
CPT/HCPCS: 36415; 36600; 71045; 80048; 80053; 80198; 81001; 82803; 82947; 83605; 83735; 83880; 84100; 84145; 84484; 85025; 85379; 85610; 85730; 87086; 87088; 87186; 87428; 93005; 93010; 94640; 96365; 96375; 96376; 99223; 99239; 99285; A9270; G0378; J1815; J1938; J2919; J3475; J3490